=== PATIENT | male | born 1945 | race Caucasian/White ===

== ENCOUNTER 2019-10-18 07:05 | Outpatient (CLI) | payer MEDICARE, SELFPAY ==
[2019-10-18 07:17] LABS: Hematocrit 42.2 % (37.0-46.0); Hemoglobin 14.8 g/dL (12.4-15.3); Mean Corpuscular HGB Conc 35.1 g/dL (32.0-36.0); Mean Corpuscular Hemoglobin 31.5 pg (27.0-31.0); Mean Corpuscular Volume 89.8 fL (78.0-102.0); Mean Platelet Volume 10.3 fl (8.7-11.0); Platelet Count Result 185 K/mm3 (150-420); White Blood Count 7.7 K/mm3 (4.8-10.8)
[2019-10-18 07:20] LABS: Appearance Urine Cloudy (Clear); Bilirubin Urine Negative (Negative); Color Urine Yellow (Yellow); Glucose Urine UA Negative (Negative); Ketones Urine Negative (Negative); Leukocyte Esterase Ur 3+ (Negative); Nitrate Urine Positive (Negative); Protein Urine Negative (Negative); Specific Grav Ur 1.015 (1.010-1.020); Urobilinogen Urine 0.2 mg/dL (0.2-1.0)
[2019-10-18 07:36] LABS: Add Urine Microscopic? YES; Blood Urine Trace-Intact (Negative); Squamous Epithelial Cell Urine None seen /hpf (Few); WBC Urine >75 /hpf (0-3)
[2019-10-18 07:37] LABS: Bacteria Urine 4+ /hpf
[2019-10-18 07:59] LABS: Band Neutrophils Percent 0 % (0-6); Basophils Percent Manual 0 % (0-1); Eosinophils Absolute Manual 0.69 K/mm3 (0.02-0.5); Eosinophils Percent Manual 9 % (1-6); Lymphocytes Absolute Manual 2.15 K/mm3 (1.1-4.5); Lymphocytes Percent Manual 28 % (18-44); Monocytes Absolute Manual 0.46 K/mm3 (0.1-0.90); Monocytes Percent Manual 6 % (3-9); Neutrophils Absolute Manual 4.38 K/mm3 (1.3-6.7); Neutrophils Percent Manual 57 % (46-73); Platelet Estimate Adequate (Adequate); Total Cells Counted 100
[2019-10-18 08:08] LABS: Creatinine Urine 82.88 mg/dL (40-278)
[2019-10-18 08:24] LABS: MALB Creatinine Ratio 53.5 mg/g (0-30); Microalbumin Urine Random 44.4 mg/L
[2019-10-18 08:50] LABS: Alanine Aminotransferase 24 U/L (16-63); Albumin Level 3.5 g/dL (3.4-5.0); Alkaline Phosphatase 107 U/L (46-116); Anion Gap 11.7 mmol/L (7-16); Aspartate Amino Transferase 22 U/L (15-37); Bilirubin,Total 0.9 mg/dL (0.00-1.00); Blood Urea Nitrogen 25 mg/dL (7-18); Calcium 8.6 mg/dL (8.5-10.1); Carbon Dioxide 32 mmol/L (21-32); Chloride 106 mmol/L (98-108); Cholesterol 156 mg/dL (0-200); Creatine Kinase 80 U/L (39-308); Estimated Glomerular Filt Rate 53; Ferritin 33 ng/mL (26-388); Glucose 107 mg/dL (70-99); HDL Direct 48 mg/dL (40-60); Iron 98 ug/dL (65-175); LDL Cholesterol Calculated 81 mg/dL (<130); Osmolality Calculated 306 mOsm/kg (285-295); Percent Iron Saturation 33 % (12-57); Potassium 3.7 mmol/L (3.5-5.1); Prostate Specific Antigen 2.1 ng/mL (< OR = 4.0); Sodium 146 mmol/L (136-145); Total Protein 6.5 g/dL (6.4-8.2); Triglycerides 136 mg/dL (0-150)
== END 2019-10-18 07:06 | disposition home or self-care (01) ==
PROVIDERS: PCP Internal Medicine; Visit Provider Internal Medicine
DX: E78.2 Mixed hyperlipidemia (principal); I10 Essential (primary) hypertension; E83.110 Hereditary hemochromatosis; Z85.46 Personal history of malignant neoplasm of prostate; E11.9 Type 2 diabetes mellitus without complications
CPT/HCPCS: 36415; 80053; 80061; 81001; 82043; 82550; 82728; 83036; 83540; 83550; 84153; 85025

== ENCOUNTER 2020-05-21 07:22 | Outpatient (CLI) | payer MEDICARE, SELFPAY ==
[2020-05-21 07:33] LABS: Add Urine Microscopic? NO; Appearance Urine Clear (Clear); Bilirubin Urine Negative (Negative); Blood Urine Negative (Negative); Color Urine Yellow (Yellow); Glucose Urine UA Negative (Negative); Ketones Urine Negative (Negative); Leukocyte Esterase Ur Negative (Negative); Nitrate Urine Negative (Negative); Protein Urine Negative (Negative); Urobilinogen Urine 0.2 mg/dL (0.2-1.0); pH Urine 7.5 (5.0-8.0)
[2020-05-21 07:46] LABS: Creatinine Urine 50.62 mg/dL (40-278); MALB Creatinine Ratio 44.8 mg/g (0-30); Microalbumin Urine Random 22.7 mg/L
[2020-05-21 07:49] LABS: Hemoglobin A1C 6.5 % (<5.7)
[2020-05-21 08:14] LABS: Alanine Aminotransferase 24 U/L (16-63); Albumin Level 3.8 g/dL (3.4-5.0); Alkaline Phosphatase 108 U/L (46-116); Anion Gap 8 mmol/L (8-16); Aspartate Amino Transferase 19 U/L (15-37); Blood Urea Nitrogen 20 mg/dL (7-18); Calcium 8.8 mg/dL (8.5-10.1); Carbon Dioxide 32 mmol/L (21-32); Chloride 103 mmol/L (98-108); Cholesterol 168 mg/dL (0-200); Creatine Kinase 79 U/L (39-308); Estimated Glomerular Filt Rate 55; Glucose 129 mg/dL (70-99); HDL Direct 52 mg/dL (40-60); LDL Cholesterol Calculated 86 mg/dL (<130); Osmolality Calculated 300 mOsm/kg (285-295); Potassium 3.6 mmol/L (3.5-5.1); Sodium 143 mmol/L (136-145); Total Protein 6.8 g/dL (6.4-8.2); Triglycerides 150 mg/dL (0-150)
== END 2020-05-21 07:23 | disposition home or self-care (01) ==
LOC: CHSLAB 07:23
PROVIDERS: PCP Internal Medicine; Visit Provider Internal Medicine
DX: E11.9 Type 2 diabetes mellitus without complications (principal); I10 Essential (primary) hypertension; E78.2 Mixed hyperlipidemia
CPT/HCPCS: 36415; 80053; 80061; 81003; 82043; 82550; 83036

== ENCOUNTER 2020-06-03 10:38 | Outpatient (CLI) | payer MEDICARE, SELFPAY ==
--- NOTE | ~2020-06-03 | XR_ITS ---
EXAMINATION: XR chest 2V DATE: 06/03/2020 10:56 INDICATION: Asbestos exposure TECHNIQUE: PA and lateral views of the chest are obtained. COMPARISON: 03/27/2016 FINDINGS: The lungs are free of acute opacities. There is no pleural effusion or pneumothorax. The ca rdiomediastinal silhouette is normal. There is moderate thoracic spondylosis. No definite calcified p leural plaques are identified. IMPRESSION: 1. No acute cardiopulmonary abnormality. No definite sequela of asbestos exposure although sensitivit y of radiographs is low. Reviewed, dictated and finalized at location A. TESTER IMPRESSION: 1. No acute cardiopulmonary abnormality. No definite sequela of asbestos exposu re although sensitivity of radiographs is low.
== END 2020-06-03 10:39 | disposition home or self-care (01) ==
LOC: CHSIMG 10:40
PROVIDERS: PCP Internal Medicine; Visit Provider Internal Medicine
DX: Z77.090 Contact with and (suspected) exposure to asbestos (principal)
CPT/HCPCS: 71046

== ENCOUNTER 2020-09-15 14:56 | Outpatient (CLI) | payer MEDICARE, SELFPAY ==
--- NOTE | ~2020-09-15 | US_ITS ---
US scrotum doppler INDICATION: Testicular swelling TECHNIQUE: Testicular sonogram utilizing grayscale and color Doppler FINDINGS: The testes are normal in size and appearance. No focal lesions are seen. The right testes measures 4.2 x 2.3 x 3.2 cm centimeters, and the left testis measures 3.8 x 2.5 x 3.1 cm cm. There is normal vascular flow to both testes. There is a right epididymal cyst. There are bilateral hydroceles, right greater than left. IMPRESSION: 1. Bilateral hydroceles, right greater than left. Reviewed, dictated and finalized at location A.
== END 2020-09-15 14:57 | disposition home or self-care (01) ==
PROVIDERS: PCP Internal Medicine; Visit Provider Urology
DX: N50.89 Other specified disorders of the male genital organs (principal); N43.3 Hydrocele, unspecified
CPT/HCPCS: 76870; 93976

== ENCOUNTER 2020-09-28 07:27 | Outpatient (CLI) | payer MEDICARE, SELFPAY ==
--- NOTE | 2020-09-28 07:30 | ECG_ITS ---
Measurements Intervals [place] Rate: 73 P: 70 TN: 196 QRS: 83 QRSD: 113 T: 47 QT: 391 QTc: 433 Interpretive Statements SINUS RHYTHM INTRAVENTRICULAR CONDUCTION DELAY CANNOT RULE OUT SEPTAL INFARCT, AGE INDETERMINATE BASELINE ARTIFACT- II, III ABNORMAL ECG Electronically Signed On 09-28-2020 12:06:49 CDT by Nelson Mascorro D.O.
[2020-09-28 08:23] LABS: Anion Gap 10 mmol/L (8-16); Blood Urea Nitrogen 28 mg/dL (7-18); Calcium 8.9 mg/dL (8.5-10.1); Carbon Dioxide 31 mmol/L (21-32); Chloride 103 mmol/L (98-108); Estimated Glomerular Filt Rate 51; Glucose 130 mg/dL (70-99); Osmolality Calculated 305 mOsm/kg (285-295); Potassium 3.7 mmol/L (3.5-5.1); Sodium 144 mmol/L (136-145)
== END 2020-09-28 07:28 | disposition home or self-care (01) ==
LOC: CHSLAB 07:30
PROVIDERS: PCP Internal Medicine; Visit Provider Anesthesiology
DX: Z79.899 Other long term (current) drug therapy (principal); I10 Essential (primary) hypertension
CPT/HCPCS: 36415; 80048; 93005

== ENCOUNTER → 2020-10-10 00:14 | Outpatient (CLI) | payer MEDICARE, SELFPAY ==
[2020-10-10 19:27] LABS: SARS-CoV-2 RNA PCR Negative
== END ==
PROVIDERS: PCP Internal Medicine; Visit Provider Urology
DX: Z01.812 Encounter for preprocedural laboratory examination (principal); Z20.822 Contact with and (suspected) exposure to COVID-19
CPT/HCPCS: C9803; U0003; U0005

== ENCOUNTER 2020-10-13 00:13 | Day surgery (SDC) | payer MEDICARE, SELFPAY ==
[2020-09-25 14:51] VITALS: BMI 39.9
[2020-10-13] VITALS (8 sets, daily range): BP systolic 113–154; BP diastolic 58–85; PULSE 64–91; RESP 11–16; TEMP 35.8–36.3; O2SAT 91–99
--- NOTE | 2020-10-13 07:18 | WPDHPUPDATE1 ---
History and Physical Update Update Date/Time: 10/13/20 07:18 History and Physical has been reviewed, including an updated exam of the patient. There are NO changes in the patient's condition. Risks, benefits, and alternatives have been discussed and questions answered. Patient agrees to proceed with procedure. Proceed with right hydrocelectomy
[2020-10-13] MEDS: LACTATED RINGERS 1,000 ML 30 ML IV CONT ×2 (07:32→09:48)
--- NOTE | 2020-10-13 08:04 | WPDANESEPPF ---
Anes - Initial Pre Proc Eval Procedure: Operation Date: 10/13/20 09:00 Proposed Procedures p Right Hydrocelectomy - Joseluis Garay MD Date/Time: 10/13/20 08:04 Surgeon: Joseluis Garay MD Pre Op Diagnosis: right hydrocele Patient Data Age: 75 Gender: M Height: 1.75 m Weight: 122.6 kg Last Vital Signs Temp 96.4 F L 10/13/20 06:59 Pulse 64 10/13/20 06:59 Resp 16 10/13/20 06:59 BP 145/59 H 10/13/20 06:59 Pulse Ox 98 10/13/20 06:59 Allergies Allergy/AdvReac Type Severity Reaction Status Date / Time No Known Allergies Allergy Unverified 10/13/20 07:19 Home Medications Medication Instructions Recorded Confirmed Type amlodipine 10 mg PO QAM 09/25/20 10/13/20 History aspirin [Aspir-81] 81 mg PO DAILY 09/25/20 10/13/20 History cetirizine [Zyrtec] 5 mg PO HS 09/25/20 10/13/20 History clonidine HCl 0.1 mg QAM 09/25/20 10/13/20 History doxazosin 8 mg HS 09/25/20 10/13/20 History hydrochlorothiazide 25 mg QAM 09/25/20 10/13/20 History losartan 100 mg QAM 09/25/20 10/13/20 History pravastatin 10 mg HS 09/25/20 10/13/20 History Patient hx anesthesia problems: none Family hx anesthesia problems: none [facility] Past Medical History Medical History (Updated 10/13/20 @ 08:04 by Oren Hinson MD) Arthritis H/O prostate cancer Hyperlipidemia Hypertension Social History Social History Smoking packs per day: 1 Smoking cigarettes per day: 20.0 Years smoked: 20 Smoking pack-years: 20.00 Smoking status: Former smoker Second hand tobacco smoke exposure: No Additional smoking assessment comments: PT UNABLE TO RECALL WHEN QUITTING Substance use: never Substance use type: does not use Living arrangements: with family Spiritual care concerns: No Anes - Eval Final PreProcedure Day of Procedure 10/13/20 08:04 Patient weight: morbidly obese Heart: regular rate and rhythm Lungs: clear to auscultation Airway: Mallampati scale class III Neurological: alert and oriented Last oral intake: >/= 8 hours ASA classification: IV Emergent: no Anesthetic plan: proceed Anesthesia type and monitoring: general LMA and standard monitoring Informed Consent: The patient's anesthetic plan and its attendant risks and benefits were discussed with the patient/family/POA. Questions were solicited and answers provided to the satisfaction of the patient/family/POA.
[2020-10-13] MEDS: ceFAZolin 3 GM/D5W 100 ML 100 ML IVPB (08:48)
--- NOTE | 2020-10-13 09:37 | P.OP_ITS ---
Procedure Note - Detailed Date of Procedure 10/13/20 Pre-op Diagnosis right hydrocele Post-op Diagnosis same Procedure Performed Right hydrocelectomy and right orchiopexy Surgeon Joseluis Garay MD Anesthesia general Description of Procedure Patient is taken the operative suite and correctly identified. Once anesthesia was obtained he was placed in supine position and prepped and draped usual sterile fashion. Right transverse incision was made in the right hemiscrotum. This carried down to the tunica layers. The hydrocele was then brought out in the operative field. It was incised and drained of 250 cc of straw-colored fluid. We excised the excess tissue. Fulgurated the edges. The appendix testes was also removed. We then did an orchiopexy by stabilizing the testicle in 3 points laterally medially and inferiorly. Three 0 PDS was used. Quarter- inch Anel drain was then placed through a separate stab incision. This secured using a chromic suture. We anesthetize the incision with Marcaine. We closed the tunica using 3 0 chromic in a running fashion. Skin was also closed with running fashion with 3 O chromic. Patient is taken recovery stable condition. He will remove the [place] 2-3 days if minimal drainage. Drains Yes Packing No Pathology yes Complications No immediate complications Condition stable Disposition PACU
== END 2020-10-13 11:37 | disposition home or self-care (01) ==
PROVIDERS: PCP Internal Medicine; Visit Provider Urology
PROC: (CPT 55040; principal; 2020-10-13 09:00)
DX: N43.3 Hydrocele, unspecified (principal); Z79.82 Long term (current) use of aspirin; I10 Essential (primary) hypertension; E78.5 Hyperlipidemia, unspecified; Z85.46 Personal history of malignant neoplasm of prostate; Z87.891 Personal history of nicotine dependence; E66.01 Morbid (severe) obesity due to excess calories; Z68.39 Body mass index [BMI] 39.0-39.9, adult
CPT/HCPCS: 55040; 54640; 88302; A9270; J0131; J0690; J1100; J2405; J2704; J3010; J7120

== ENCOUNTER 2020-11-17 08:05 | Outpatient (CLI) | payer MEDICARE, SELFPAY ==
[2020-11-17 08:20] LABS: Add Urine Microscopic? NO; Appearance Urine Clear (Clear); Bilirubin Urine Negative (Negative); Blood Urine Negative (Negative); Color Urine Light Yellow (Yellow); Glucose Urine UA Negative (Negative); Hematocrit 41.6 % (37.0-46.0); Hemoglobin 14.7 g/dL (12.4-15.3); Ketones Urine Negative (Negative); Leukocyte Esterase Ur Negative (Negative); Mean Corpuscular HGB Conc 35.3 g/dL (32.0-36.0); Mean Corpuscular Hemoglobin 32.1 pg (27.0-31.0); Mean Corpuscular Volume 90.8 fL (78.0-102.0); Mean Platelet Volume 10.3 fl (8.7-11.0); Nitrate Urine Negative (Negative); Platelet Count Result 216 K/mm3 (150-420); Protein Urine Negative (Negative); Red Blood Count 4.58 M/mm3 (4.70-6.10); Red Cell Distribution Width 12.6 % (11.6-14.4); Specific Grav Ur 1.015 (1.010-1.020); Urobilinogen Urine 0.2 mg/dL (0.2-1.0); White Blood Count 7.1 K/mm3 (4.8-10.8); pH Urine 7.5 (5.0-8.0)
[2020-11-17 08:30] LABS: Hemoglobin A1C 7.1 % (<5.7)
[2020-11-17 08:40] LABS: Band Neutrophils Percent 0 % (0-6); Eosinophils Absolute Manual 0.56 K/mm3 (0.02-0.5); Eosinophils Percent Manual 8 % (1-6); Lymphocytes Absolute Manual 1.91 K/mm3 (1.1-4.5); Lymphocytes Percent Manual 27 % (18-44); Monocytes Absolute Manual 0.42 K/mm3 (0.1-0.90); Monocytes Percent Manual 6 % (3-9); Neutrophils Absolute Manual 4.18 K/mm3 (1.3-6.7); Neutrophils Percent Manual 59 % (46-73); Platelet Estimate Adequate (Adequate); Total Cells Counted 100
[2020-11-17 09:55] LABS: Alanine Aminotransferase 27 U/L (16-63); Albumin Level 3.6 g/dL (3.4-5.0); Alkaline Phosphatase 114 U/L (46-116); Anion Gap 13 mmol/L (8-16); Aspartate Amino Transferase 23 U/L (15-37); Blood Urea Nitrogen 23 mg/dL (7-18); Calcium 8.7 mg/dL (8.5-10.1); Carbon Dioxide 28 mmol/L (21-32); Chloride 106 mmol/L (98-108); Cholesterol 163 mg/dL (0-200); Creatine Kinase 108 U/L (39-308); Estimated Glomerular Filt Rate 56; Glucose 119 mg/dL (70-99); HDL Direct 49 mg/dL (40-60); Iron 121 ug/dL (65-175); LDL Cholesterol Calculated 83 mg/dL (<130); Osmolality Calculated 308 mOsm/kg (285-295); Percent Iron Saturation 45 % (12-57); Potassium 3.9 mmol/L (3.5-5.1); Prostate Specific Antigen 1.2 ng/mL (< OR = 4.0); Sodium 147 mmol/L (136-145); Total Protein 6.8 g/dL (6.4-8.2); Triglycerides 153 mg/dL (0-150)
[2020-11-17 11:32] LABS: Ferritin 108 ng/mL (26-388)
== END 2020-11-17 08:06 | disposition home or self-care (01) ==
LOC: CHSLAB 08:07
PROVIDERS: PCP Internal Medicine; Visit Provider Internal Medicine
DX: E11.9 Type 2 diabetes mellitus without complications (principal); I10 Essential (primary) hypertension; E78.2 Mixed hyperlipidemia; K21.9 Gastro-esophageal reflux disease without esophagitis; E83.110 Hereditary hemochromatosis; Z85.46 Personal history of malignant neoplasm of prostate
CPT/HCPCS: 36415; 80053; 80061; 81003; 82550; 82728; 83036; 83540; 83550; 84153; 85025

== ENCOUNTER 2020-12-04 13:10 | Outpatient (CLI) | payer MEDICARE, SELFPAY ==
--- NOTE | ~2020-12-04 | US_ITS ---
EXAMINATION: US carotid duplex BI DATE: 12/04/2020 15:12 INDICATION: Carotid stenosis. TECHNIQUE: Grayscale, color Doppler, and pulsed Doppler images of the cervical carotid arteries were obtained. The degree of vessel stenosis is placed in one of the following categories: normal, <50%, 5 0-69%, >=70% but less than near-occlusion, near-occlusion, or total occlusion. Note that percent sten osis relative to normal distal artery lumen diameter is indirectly measured from velocity measurement s as described by Christophe, et al. Radiology 2003; 229:340-346. COMPARISON: Ultrasound 10/14/2016 FINDINGS: RIGHT: The right common carotid artery (CCA) peak systolic velocity (PSV) is 95 cm/s. The right internal car otid artery (ICA) PSV is 82 cm/s. The right ICA end-diastolic velocity (EDV) is 16 cm/s. The right IC A/CCA PSV ratio is 0.9. Grayscale and color Doppler images yield an estimate of <50% diameter reducti on from plaque in the ICA. There is antegrade flow in the right vertebral artery. LEFT: The left CCA PSV is 88 cm/s. The left ICA PSV is 77 cm/s. The left ICA EDV is 15 cm/s. The left ICA/C CA PSV ratio is 0.9. Grayscale and color Doppler images yield an estimate of <50% diameter reduction from plaque in the ICA. There is antegrade flow in the left vertebral artery. IMPRESSION: 1. <50% stenosis in the right internal carotid artery. 2. <50% stenosis in the left internal carotid artery. Reviewed, dictated and finalized at location A.
[2020-12-04 13:32] LABS: Hematocrit 41.4 % (37.0-46.0); Hemoglobin 14.5 g/dL (12.4-15.3)
--- NOTE | 2020-12-04 14:42 | PC.NURSE ---
Patient here for therapeutic Phlebotomy. Patient has many of these before in the past. Reports veins are getting trickier Unable to find vein to successfully to complete phlebotomy and patient has appointment for ultrasound that can't wait to try again. Patient is understanding and rescheduled for Mon at 1100 a.m.
== END 2020-12-04 13:11 | disposition home or self-care (01) ==
PROVIDERS: PCP Internal Medicine; Visit Provider Internal Medicine
DX: E83.110 Hereditary hemochromatosis (principal); I65.23 Occlusion and stenosis of bilateral carotid arteries
CPT/HCPCS: 36415; 85014; 85018; 93880; 99195

== ENCOUNTER 2021-04-20 09:46 | Outpatient (CLI) | payer MEDICARE, SELFPAY ==
--- NOTE | ~2021-04-20 | XR_ITS ---
EXAMINATION: XR knee LT min 4V DATE: 04/20/2021 10:17 INDICATION: Left knee pain TECHNIQUE: Weight bearing anteroposterior and Clemons, sunrise, and flexed lateral views of the lef t knee were obtained COMPARISON: None. FINDINGS: Alignment is normal. No fracture. Chondrocalcinosis at the lateral compartment of the knee. Moderate to severe joint space narrowing at the medial compartment. Mild joint space narrowing in the patello femoral compartment. Small marginal osteophytes in all 3 compartments. Moderate-sized left knee joint effusion. Moderate-sized enthesophyte at the patellar insertion of the distal quadriceps tendon. Mil d prepatellar soft tissue swelling. Lesser calcific lesions along the distal femoral and popliteal ar teries. IMPRESSION: 1. Chondrocalcinosis and moderate to severe medial compartment predominant tricompartmental osteoarth ritis at the left knee. 2. Moderate-sized left knee joint effusion. Reviewed, dictated and finalized at location A. 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 Chondrocalcinosis and moderate to severe medial compartment predominant tric ompartmental osteoarthritis at the left knee. 2. Moderate-sized left knee joint effusion.
== END 2021-04-20 09:47 | disposition home or self-care (01) ==
LOC: CHSLAB 09:48
PROVIDERS: PCP Internal Medicine; Visit Provider Internal Medicine
DX: M25.562 Pain in left knee (principal)
CPT/HCPCS: 73564

== ENCOUNTER 2021-04-28 12:29 | Outpatient (CLI) | payer MEDICARE, SELFPAY ==
--- NOTE | ~2021-04-28 | XR_ITS ---
XR ankle LT min 3V DATE: 04/28/2021 13:09 INDICATION: Medial left ankle pain TECHNIQUE: 4 views COMPARISON: None FINDINGS: There is prominent tibiotalar osteoarthritis including periarticular spurring. No fracture or dislocation of the ankle or disruption of the ankle mortise. No periosteal reaction or bone destruction. Prominent plantar and mild posterior calcaneal enthesopathy. Anterior and posterior tibial artery calcification. IMPRESSION: 1 tibiotalar osteoarthritis Calcaneal enthesopathy. Reviewed, dictated and finalized at location A. 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
[2021-04-28 13:26] LABS: CRP 1.8 mg/dL (0.0-0.9); Uric Acid 5.3 mg/dL (3.5-7.2)
[2021-04-28 13:57] LABS: Erythrocyte Sedimentation Rate 42 mm/hr (0-20)
== END 2021-04-28 12:30 | disposition home or self-care (01) ==
LOC: CHSLAB 12:38
PROVIDERS: PCP Internal Medicine; Visit Provider Internal Medicine
DX: M25.572 Pain in left ankle and joints of left foot (principal)
CPT/HCPCS: 36415; 73610; 84550; 85652; 86140

== ENCOUNTER 2021-05-01 09:17 | Outpatient (CLI) | payer MEDICARE, SELFPAY ==
--- NOTE | ~2021-05-01 | MR_ITS ---
EXAMINATION: MR knee LT wo con DATE: 05/01/2021 10:05 INDICATION: Left knee pain TECHNIQUE: Magnetic resonance imaging (MRI) of the left knee was performed without intravenous contra st. Sequences included coronal PD-weighted FSE, coronal PD-weighted FS FSE, sagittal T2-weighted FSE , sagittal PD-weighted FS FSE and axial PD weighted fat saturated FSE. COMPARISON: None. FINDINGS: Evaluation mildly limited by small amount of motion blurring on the fat-saturated images. Medial compartment: Linear longitudinal horizontal tear plane extending to the inferior articular surface of the posterio r horn and anterior horn of the medial meniscus. There is medial extrusion of the meniscal body which is diminutive consistent with severe likely secondary meniscal degeneration differential would inclu de changes of prior partial meniscectomy in the appropriate clinical setting. There is extensive full /near full-thickness cartilage loss with underlying cortical irregularity and subarticular edema katharina g the medial half of the anterior to posterior weightbearing medial femoral condyle and along the ant erior half of the medial tibial plateau. Additional subarticular cystic change at the central aspect of the posterior weightbearing medial femoral condyle. Lateral compartment: There is a longitudinal horizontal tear extending to the inferior articular surface along the inner t hird of the posterior horn of the lateral meniscus. Partial-thickness cartilage loss with smooth annette dral surface and without degenerative subchondral changes along the lateral aspect of the central to posterior weightbearing lateral femoral condyle. Patellofemoral compartment: Deep chondral ulceration with underlying increased subarticular marrow signal and cystlike changes at the superolateral aspect of the medial patellar facet. Additional small region of deep chondral ulce ration with mild underlying cortical irregularity along the inferolateral aspect of the medial trochl ea. Ligaments and tendons: Anterior and posterior cruciate ligaments are normal. The medial collateral ligament is normal. There is mild thickening and mild increased signal without significant surrounding edema at the proximal f ibular collateral ligament consistent with mild scarring related to chronic sprain. Mild distal quadr iceps tendinopathy with large enthesophyte at its patellar insertion. Patellar tendon is normal. The visualized medial and lateral hamstring tendons as well as the iliotibial band are normal. Fluid: Moderate-sized left knee joint effusion with mild scattered mild synovitis. A couple loose osteochond ral bodies, the larger measuring 7 mm in the posterior recess along the posterior medial margin of th e distal posterior cruciate ligament. Small Brewer's cyst. Osseous/other: Bone alignment is normal. No fracture or pathologic marrow replacing process. Prominent prepatellar e yadira without discrete bursal fluid collection. IMPRESSION: 1. Medial and lateral meniscal tears, the former more extensive with likely significant degenerative tearing of the medial meniscal body. 2. Tricompartmental osteoarthritis, moderate to severe in the medial compartment, mild with high-grad e chondromalacia in the medial patellofemoral compartment and minimal with small region of moderate g rade chondral malacia in the lateral compartment. 3. Likely reactive moderate sized knee joint effusion and small Brewer's cyst. 4. Chronic distal quadriceps enthesopathy. Reviewed, dictated and finalized at location A. 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 Medial and lateral meniscal tears, the former more extensive with likely sig nificant degenerative tearing of the medial meniscal body. 2. Tricompartmental osteoarthritis, moderate to severe i
== END 2021-05-01 09:18 | disposition home or self-care (01) ==
LOC: CHSIMG 09:20
PROVIDERS: PCP Internal Medicine; Visit Provider Internal Medicine
DX: S83.242A Other tear of medial meniscus, current injury, left knee, initial encounter (principal)
CPT/HCPCS: 73721

== ENCOUNTER 2021-06-03 08:09 | Outpatient (CLI) | payer MEDICARE, SELFPAY ==
[2021-06-03 08:27] LABS: Basophils Absolute Auto 0.03 K/mm3 (0.00-0.10); Basophils Percent Auto 0.5 % (0.0-1.0); Eosinophils Absolute Auto 0.23 K/mm3 (0.02-0.50); Eosinophils Percent Auto 3.5 % (1.0-6.0); Hematocrit 39.9 % (37.0-46.0); Hemoglobin 13.6 g/dL (12.4-15.3); Immature Granulocyte Absolute 0.03 K/mm3 (0.00-0.00); Immature Granulocyte Percent A 0.5 % (0.0-0.0); Lymphocytes Absolute Auto 1.54 K/mm3 (1.10-4.50); Lymphocytes Percent Auto 23.5 % (18.0-42.0); Mean Corpuscular HGB Conc 34.1 g/dL (32.0-36.0); Mean Corpuscular Hemoglobin 30.8 pg (27.0-31.0); Mean Corpuscular Volume 90.5 fL (78.0-102.0); Mean Platelet Volume 9.9 fl (8.7-11.0); Monocytes Absolute Auto 0.47 K/mm3 (0.10-0.90); Monocytes Percent Auto 7.2 % (2.0-11.0); Neutrophils Absolute Auto 4.3 K/mm3 (1.7-7.2); Neutrophils Percent Auto 64.8 % (50.0-70.0); Platelet Count Result 230 K/mm3 (150-420); Red Blood Count 4.41 M/mm3 (4.70-6.10); Red Cell Distribution Width 12.7 % (11.6-14.4); White Blood Count 6.6 K/mm3 (4.8-10.8)
[2021-06-03 08:28] LABS: Add Urine Microscopic? NO; Appearance Urine Clear (Clear); Bilirubin Urine Negative (Negative); Blood Urine Negative (Negative); Color Urine Light Yellow (Yellow); Glucose Urine UA Negative (Negative); Ketones Urine Negative (Negative); Leukocyte Esterase Ur Negative (Negative); Nitrate Urine Negative (Negative); Protein Urine Negative (Negative); Urobilinogen Urine 0.2 mg/dL (0.2-1.0); pH Urine 7.5 (5.0-8.0)
[2021-06-03 08:46] LABS: Hemoglobin A1C 7.9 % (<5.7)
[2021-06-03 09:57] LABS: Alanine Aminotransferase 27 U/L (16-63); Albumin Level 3.5 g/dL (3.4-5.0); Alkaline Phosphatase 114 U/L (46-116); Anion Gap 11 mmol/L (8-16); Aspartate Amino Transferase 14 U/L (15-37); Bilirubin,Total 0.8 mg/dL (0.00-1.00); Blood Urea Nitrogen 18 mg/dL (7-18); Carbon Dioxide 30 mmol/L (21-32); Chloride 103 mmol/L (98-108); Cholesterol 153 mg/dL (0-200); Creatine Kinase 55 U/L (39-308); Estimated Glomerular Filt Rate > 60; Ferritin 31 ng/mL (26-388); Glucose 128 mg/dL (70-99); HDL Direct 54 mg/dL (40-60); Iron 61 ug/dL (65-175); LDL Cholesterol Calculated 73 mg/dL (<130); Osmolality Calculated 301 mOsm/kg (285-295); Potassium 3.6 mmol/L (3.5-5.1); Sodium 144 mmol/L (136-145); Total Protein 6.5 g/dL (6.4-8.2); Triglycerides 130 mg/dL (0-150)
== END 2021-06-03 08:10 | disposition home or self-care (01) ==
LOC: CHSLAB 08:10
PROVIDERS: PCP Internal Medicine; Visit Provider Internal Medicine
DX: E78.2 Mixed hyperlipidemia (principal); I10 Essential (primary) hypertension; E11.40 Type 2 diabetes mellitus with diabetic neuropathy, unspecified; E83.110 Hereditary hemochromatosis
CPT/HCPCS: 36415; 80053; 80061; 81003; 82550; 82728; 83036; 83540; 85025

== ENCOUNTER 2021-06-21 12:46 | Outpatient (RCR) | payer MEDICARE, SELFPAY ==
--- NOTE | 2021-06-21 13:43 | PTOPEVAL ---
Thank you for referring Seun Burgess to [facility].? The patient is scheduled to be seen for therapy? __3__x/week for 12 visits. Please review, sign, date and return this plan of care ALEXIS. I agree with and certify that the following plan of care is medically necessary. 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 Respiratory History Hx Respiratory Disorders No Significant History Gastrointestinal History Hx Cholecystectomy Yes Hx Hernia Yes: UMBILICAL HERNIA REPAIR Hx Polyps Yes: POLYPECTOMY VIA COLONOSCOPY Genitourinary History Hx Other Genitourinary Disorders Yes: RT HYDROCELE, HX PROSTATE CA -TX WITH RADATION Musculoskeletal History Hx Arthritis Yes Hx Joint Replacement Yes: RT KNEE Hematological History Hx Hematological Disorders No Significant History Endocrine History Hx Endocrine Disorders No Significant History HEENT History Hx Cataracts Yes: BILATERALLY REMOVED Hx Sinus Problems Yes: SEASONAL ALLERGIES Hx Other HEENT Disorders Yes: 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 reports that he underwent Query Text:As Reported By Patient/ left knee replacement 1 week Family ago. He states that he was in the hospital for 1 day after jaimes
--- NOTE | 2021-07-07 10:08 | PTOPEVAL ---
Thank you for referring Seun Bugress JrClaudia to [facility] [place].? The patient is scheduled to be seen for therapy? __3__x/week for 5 visits. Please review, sign, date and return this plan of care ALEXIS. I agree with and certify that the following plan of care is medically necessary. 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 Respiratory History Hx Respiratory Disorders No Significant History Gastrointestinal History Hx Cholecystectomy Yes Hx Hernia Yes: UMBILICAL HERNIA REPAIR Hx Polyps Yes: POLYPECTOMY VIA COLONOSCOPY Genitourinary History Hx Other Genitourinary Disorders Yes: RT HYDROCELE, HX PROSTATE CA -TX WITH RADATION Musculoskeletal History Hx Arthritis Yes Hx Joint Replacement Yes: RT KNEE Hematological History Hx Hematological Disorders No Significant History Endocrine History Hx Endocrine Disorders No Significant History HEENT History Hx Cataracts Yes: BILATERALLY REMOVED Hx Sinus Problems Yes: SEASONAL ALLERGIES Hx Other HEENT Disorders Yes: [place]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 reports that he has been Query Text:As Reported By Patient/ walking short distances Family without the cane. He still describes stiffness and swelling limiting k
--- NOTE | 2021-07-19 10:10 | PTOPEVAL ---
Thank you for referring Seun Burgess to [facility].? The patient is scheduled to be seen for therapy? ____x/week for ___ weeks. Please review, sign, date and return this plan of care ALEXIS. I agree with and certify that the following plan of care is medically necessary. 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 Respiratory History Hx Respiratory Disorders No Significant History Gastrointestinal History Hx Cholecystectomy Yes Hx Hernia Yes: UMBILICAL HERNIA REPAIR Hx Polyps Yes: POLYPECTOMY VIA COLONOSCOPY Genitourinary History Hx Other Genitourinary Disorders Yes: RT HYDROCELE, HX PROSTATE CA -TX WITH RADATION Musculoskeletal History Hx Arthritis Yes Hx Joint Replacement Yes: RT KNEE Hematological History Hx Hematological Disorders No Significant History Endocrine History Hx Endocrine Disorders No Significant History HEENT History Hx Cataracts Yes: BILATERALLY REMOVED Hx Sinus Problems Yes: SEASONAL ALLERGIES Hx Other HEENT Disorders Yes: [place]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 Integumentary History Hx Skin Disorders No Significant History Reproductive History Hx Reproductive Disorders No Significant History Psychosocial History Hx Psychiatric Disorders No Significant History Pain History History of Any Previous or Ongoing No Significant History Instance of Pain Anesthesia History Hx Anesthesia Reactions No Significant History Other History Hx Cancer Yes: PROSTATE Hx Implanted Device Yes: RT KNEE Hx Radiation Therapy Yes: COMPLETED Pain Assessment Timing of Pain Assessment Timing of Pain Assessment Assessment Pain Scale Pain Scale Used Numeric (1 - 10) Self Report Pain Assessment Left Knee(s) Reported Pain Level 3 Greatest Pain Intensity 7 Pain Score Pain Score 3: Self Report Interventions Used Interventions Used By Clinicians Activity or ADL's,Compression Pump,Education,Exercise,
--- NOTE | 2021-08-03 10:05 | PTOPEVAL ---
Thank you for referring Seun Burgess to [facility].? The patient is scheduled to be seen for therapy? ____x/week for ___ weeks. Please review, sign, date and return this plan of care ALEXIS. I agree with and certify that the following plan of care is medically necessary. 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 Respiratory History Hx Respiratory Disorders No Significant History Gastrointestinal History Hx Cholecystectomy Yes Hx Hernia Yes: UMBILICAL HERNIA REPAIR Hx Polyps Yes: POLYPECTOMY VIA COLONOSCOPY Genitourinary History Hx Other Genitourinary Disorders Yes: RT HYDROCELE, HX PROSTATE CA -TX WITH RADATION Musculoskeletal History Hx Arthritis Yes Hx Joint Replacement Yes: RT KNEE Hematological History Hx Hematological Disorders No Significant History Endocrine History Hx Endocrine Disorders No Significant History HEENT History Hx Cataracts Yes: BILATERALLY REMOVED Hx Sinus Problems Yes: SEASONAL ALLERGIES Hx Other HEENT Disorders Yes: [place]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 Integumentary History Hx Skin Disorders No Significant History Reproductive History Hx Reproductive Disorders No Significant History Psychosocial History Hx Psychiatric Disorders No Significant History Pain History History of Any Previous or Ongoing No Significant History Instance of Pain Anesthesia History Hx Anesthesia Reactions No Significant History Other History Hx Cancer Yes: PROSTATE Hx Implanted Device Yes: RT KNEE Hx Radiation Therapy Yes: COMPLETED Evaluation Information Problem Diagnosis s/p left TKA Onset 06/14/21 Additional Evaluation Detail LEFS = 31% functionally declined Subjective Information patient reports he feels Query Text:As Reported By Patient/ alright this date. he reports Family some pain still ocassionally in the L knee. he reports he is flared up with increased
== END 2021-08-03 17:00 | disposition home or self-care (01) ==
LOC: CHSPT 12:46
PROVIDERS: Visit Provider Orthopaedic Surgery
DX: Z96.652 Presence of left artificial knee joint (principal); M17.12 Unilateral primary osteoarthritis, left knee
CPT/HCPCS: 97016; 97110; 97161; 97530

== ENCOUNTER 2021-09-06 07:05 | Outpatient (CLI) | payer MEDICARE, SELFPAY ==
[2021-09-06 07:28] LABS: Hemoglobin A1C 6.4 % (<5.7)
[2021-09-06 07:30] LABS: Anion Gap 8 mmol/L (8-16); Blood Urea Nitrogen 25 mg/dL (7-18); Calcium 8.8 mg/dL (8.5-10.1); Carbon Dioxide 31 mmol/L (21-32); Chloride 104 mmol/L (98-108); Estimated Glomerular Filt Rate 58; Glucose 127 mg/dL (70-99); Osmolality Calculated 302 mOsm/kg (285-295); Potassium 3.4 mmol/L (3.5-5.1); Sodium 143 mmol/L (136-145)
== END 2021-09-06 07:06 | disposition home or self-care (01) ==
LOC: CHSLAB 07:07
PROVIDERS: PCP Internal Medicine; Visit Provider Internal Medicine
DX: E11.65 Type 2 diabetes mellitus with hyperglycemia (principal)
CPT/HCPCS: 36415; 80048; 83036

== ENCOUNTER 2021-09-27 12:13 | Outpatient (CLI) | payer MEDICARE, SELFPAY | END 2021-09-27 12:14 | disposition home or self-care (01) | LOC: CHSIMG 12:16 | PROVIDERS: PCP Internal Medicine; Visit Provider Internal Medicine | DX: R06.00 Dyspnea, unspecified (principal) | CPT/HCPCS: 93306 ==

== ENCOUNTER 2021-10-13 07:09 | Outpatient (CLI) | payer MEDICARE, SELFPAY ==
[2021-10-13 07:48] LABS: Anion Gap 5 mmol/L (8-16); Blood Urea Nitrogen 18 mg/dL (7-18); Calcium 8.8 mg/dL (8.5-10.1); Carbon Dioxide 32 mmol/L (21-32); Chloride 105 mmol/L (98-108); Estimated Glomerular Filt Rate 56; Glucose 128 mg/dL (70-99); Magnesium 2.1 mg/dL (1.8-2.4); Osmolality Calculated 297 mOsm/kg (285-295); Potassium 3.3 mmol/L (3.5-5.1); Sodium 142 mmol/L (136-145)
== END 2021-10-13 07:10 | disposition home or self-care (01) ==
LOC: CHSLAB 07:12
PROVIDERS: PCP Internal Medicine; Visit Provider Internal Medicine
DX: E87.6 Hypokalemia (principal)
CPT/HCPCS: 36415; 80048; 83735

== ENCOUNTER 2021-11-12 07:24 | Outpatient (CLI) | payer MEDICARE, SELFPAY ==
[2021-11-12 08:23] LABS: Anion Gap 6 mmol/L (8-16); Blood Urea Nitrogen 24 mg/dL (7-18); Calcium 9.3 mg/dL (8.5-10.1); Carbon Dioxide 31 mmol/L (21-32); Chloride 107 mmol/L (98-108); Estimated Glomerular Filt Rate 52; Glucose 133 mg/dL (70-99); Osmolality Calculated 304 mOsm/kg (285-295); Sodium 144 mmol/L (136-145)
== END 2021-11-12 07:25 | disposition home or self-care (01) ==
LOC: CHSLAB 07:25
PROVIDERS: PCP Internal Medicine; Visit Provider Internal Medicine
DX: E87.6 Hypokalemia (principal)
CPT/HCPCS: 36415; 80048

== ENCOUNTER 2021-12-11 08:02 | Outpatient (CLI) | payer MEDICARE, SELFPAY ==
[2021-12-11 08:19] LABS: Basophils Absolute Auto 0.03 K/mm3 (0.00-0.10); Basophils Percent Auto 0.7 % (0.0-1.0); Eosinophils Absolute Auto 0.28 K/mm3 (0.02-0.50); Eosinophils Percent Auto 6.4 % (1.0-6.0); Hemoglobin 11.9 g/dL (12.4-15.3); Immature Granulocyte Absolute 0.01 K/mm3 (0.00-0.00); Immature Granulocyte Percent A 0.2 % (0.0-0.0); Lymphocytes Absolute Auto 1.39 K/mm3 (1.10-4.50); Lymphocytes Percent Auto 31.9 % (18.0-42.0); Mean Corpuscular HGB Conc 33.1 g/dL (32.0-36.0); Mean Corpuscular Hemoglobin 29.8 pg (27.0-31.0); Mean Corpuscular Volume 90.2 fL (78.0-102.0); Mean Platelet Volume 9.4 fl (8.7-11.0); Monocytes Absolute Auto 0.43 K/mm3 (0.10-0.90); Monocytes Percent Auto 9.9 % (2.0-11.0); Neutrophils Absolute Auto 2.2 K/mm3 (1.7-7.2); Neutrophils Percent Auto 50.9 % (50.0-70.0); Platelet Count Result 264 K/mm3 (150-420); Red Blood Count 3.99 M/mm3 (4.70-6.10); Red Cell Distribution Width 12.7 % (11.6-14.4); White Blood Count 4.4 K/mm3 (4.8-10.8)
[2021-12-11 08:22] LABS: Add Urine Microscopic? NO; Appearance Urine Clear (Clear); Bilirubin Urine Negative (Negative); Blood Urine Negative (Negative); Color Urine Light Yellow (Yellow); Glucose Urine UA Negative (Negative); Ketones Urine Negative (Negative); Leukocyte Esterase Ur Negative (Negative); Nitrate Urine Negative (Negative); Protein Urine Negative (Negative)
[2021-12-11 08:30] LABS: Creatinine Urine 151.49 mg/dL (40-278); MALB Creatinine Ratio 8.5 mg/g (0-30); Microalbumin Urine Random < 13.0 mg/L
[2021-12-11 08:52] LABS: Albumin Level 3.1 g/dL (3.4-5.0); Alkaline Phosphatase 117 U/L (46-116); Anion Gap 8 mmol/L (8-16); Aspartate Amino Transferase 22 U/L (15-37); Bilirubin,Total 0.4 mg/dL (0.00-1.00); Blood Urea Nitrogen 25 mg/dL (7-18); Calcium 8.5 mg/dL (8.5-10.1); Carbon Dioxide 30 mmol/L (21-32); Chloride 102 mmol/L (98-108); Cholesterol 120 mg/dL (0-200); Creatine Kinase 88 U/L (39-308); Estimated Glomerular Filt Rate 45; Ferritin 95 ng/mL (26-388); Free T3 2.42 pg/mL (2.18-3.98); Free T4 Free Thyroxine 1.24 ng/dL (0.76-1.46); Glucose 139 mg/dL (70-99); HDL Direct 40 mg/dL (40-60); Iron 33 ug/dL (65-175); LDL Cholesterol Calculated 53 mg/dL (<130); Osmolality Calculated 296 mOsm/kg (285-295); Potassium 3.5 mmol/L (3.5-5.1); Sodium 140 mmol/L (136-145); Thyroid Stimulating Hormone 1.89 uIU/mL (0.36-3.74); Total Protein 6.5 g/dL (6.4-8.2); Triglycerides 133 mg/dL (0-150)
[2021-12-11 08:58] LABS: Hemoglobin A1C 7.2 % (<5.7)
[2021-12-11 09:00] LABS: Alanine Aminotransferase 15 U/L (16-63)
== END 2021-12-11 08:03 | disposition home or self-care (01) ==
LOC: CHSLAB 08:06
PROVIDERS: PCP Internal Medicine; Visit Provider Internal Medicine
DX: E78.2 Mixed hyperlipidemia (principal); I10 Essential (primary) hypertension; E11.65 Type 2 diabetes mellitus with hyperglycemia; R53.82 Chronic fatigue, unspecified; E83.110 Hereditary hemochromatosis
CPT/HCPCS: 36415; 80053; 80061; 81003; 82043; 82550; 82728; 83036; 83540; 84439; 84443; 84481; 85025

== ENCOUNTER 2021-12-24 15:35 | Outpatient (CLI) | payer MEDICARE, SELFPAY ==
--- NOTE | ~2021-12-24 | XR_ITS ---
XR lumbar spine 2-3V DATE: 12/24/2021 15:58 INDICATION: Chronic mid line low back pain TECHNIQUE: AP, lateral, coned lateral lumbosacral views COMPARISON: None FINDINGS: There is osteopenia. Mild levoscoliosis of the lumbar spine. Moderate degenerative disc disease at L1 to, with particularly prominent bridging osteophyte on the l eft. Mild degenerative disc disease at L2-3. Moderate to moderately severe degenerative disc disease at L3-4 and L4-5. There is associated minimal retrolisthesis at L3-4. Moderately severe degenerative disc disease at L5-S1. There is grade 1 anterolisthesis at L4-5 due to degenerative change at the apophyseal joints. The lumbar pedicles are intact. No fracture or bone destruction is noted. Normal alignment at the sacroiliac joints. IMPRESSION: Osteopenia Mild levoscoliosis Multilevel degenerative disc disease, most severe at L5-S1 Grade 1 anterolisthesis at L4-5 due to degenerative change at the apophyseal joints Reviewed, dictated and finalized at location B. IMPRESSION: Osteopenia Mild levoscoliosis Multilevel degenerative disc disease, most severe at L5-S1 Grade 1 anterolisthesis at L4-5 due to degenerative change at the apophyseal haim ints
== END 2021-12-24 15:36 | disposition home or self-care (01) ==
LOC: CHSIMG 15:38
PROVIDERS: PCP Internal Medicine; Visit Provider Internal Medicine
DX: M54.50 Low back pain, unspecified (principal)
CPT/HCPCS: 72100

== ENCOUNTER 2022-01-05 09:43 | Outpatient (RCR) | payer MEDICARE, SELFPAY ==
--- NOTE | 2022-01-05 10:54 | PTOPEVAL1 ---
Assessment and note entered by Zay Brewster Evaluation Information Assessment Status Evaluation Diagnosis low back pain Onset 07/23/21 Subjective Information Pt. reports that he developed low back pain around July. He describes pain across the lower back and pain in to both thighs. He reports that pain increases with standing and he cannot stand for long periods. He reports that he can stand for about 5 minutes before having to sit due to pain. He enjoys working in his garden, but now has to have a chair with him so he can sit down frequently. He has had xray which revealed DDD. He reports that he does walk on the treadmill for about 10-15 minutes but has to lean on the handrails. He reports that his goal for therapy is to decrease his pain and be able to stand for longer periods of time. Reported Pain Level Pain Score 5: Self Report Assessment PT Clinical Summary Pt. is a 76 year old male who enters the clinic with low back pain secondary to degenrative changes. He presents with impaired gait, impaired trunk mobility, impaired l.e. strength, impaired postural awareness and pain. Continued treatment is indicated in order to improve these areas to allow the pt. to be able to complete all IADL's with improved comfort and efficiency. Plan of Care Interventions Electrical Stimulation,Hot Pack/Cold Pack,Manual Therapy,Therapeutic Activities,Therapeutic Exercise PT Services Indicated Yes Treatment Frequency and 3x/week x 12 visits Duration These treatments will address the objective and functional deficits as defined above. The patient will be advanced safely and appropriately in order for the patient to progress towards his/her prior level of function. Additional exercises will be introduced and as well as a comprehensive home exercise program upon discharge, if needed, ?to ensure carryover of functional gains achieved in the clinic. This treatment plan has been reviewed and agreement upon by the patient.
--- NOTE | 2022-01-21 11:43 | PTOPPROGNS ---
Assessment and note entered by JT File, PT Evaluation Information Assessment Status Progress Diagnosis low back pain Onset 07/23/21 Subjective Information patient reports he feels About the same this date. he reports he has increased pain with standing and walking, but decreased pain with sitting. he reports he uses a chair to sit down and work on things in his garage. Assessment PT Clinical Summary mr. king presents to skilled PT services for his 8th skilled PT visit this date. he presents with having met goals for sensation and hep performance . he is has also made progress towards all other goals for skilled PT. he continues to display deficits in strength of the LE's, core strength, and endurance for standing and functional activities. he would do well to continue skilled PT with slight change in weekly frequency, but still focus on increasing his endurance, core strength, and LE strength to achieve his goals set out by PT at initial evaluation. Plan of Care Interventions Electrical Stimulation,Gait Training,Hot Pack/Cold Pack,Neuro Re-education,Patient/Caregiver Educati ,Therapeutic Activities,Therapeutic Exercise Treatment Frequency and continue therapy 2x weekly for 4 remaining visits Duration on initial POC These treatments will address the objective and functional deficits as defined above. The patient will be advanced safely and appropriately in order for the patient to progress towards his/her prior level of function. Additional exercises will be introduced and as well as a comprehensive home exercise program upon discharge, if needed, ?to ensure carryover of functional gains achieved in the clinic. This treatment plan has been reviewed and agreement upon by the patient.
--- NOTE | 2022-02-02 10:06 | PTOPDC ---
Assessment and note entered by JT File, PT Evaluation Information Assessment Status Discharge Diagnosis low back pain Onset 07/23/21 Subjective Information patient reports he feels better overall, but still has trouble with prolonged standing activities and walking. he reports the most difficult thing for him is to go out and work in the garden. Reported Pain Level Pain Score 3: Self Report Assessment PT Clinical Summary mr. king presents to skilled PT services for his 12th skilled PT visit. he presents with decreased pain at rest, and improved tolerance for exercises/activities in standing. however, he continues to be limited in standing and activities due to pain. he has met over 50% of goals for therapy. mr. king will DC skilled PT this date, and continue to progress endurance and activity tolerance with HEP at home independently. Plan of Care Treatment Frequency and DC to independent HEP Duration
== END 2022-04-05 23:59 | disposition home or self-care (01) ==
LOC: CHSPT 09:43
DX: M54.50 Low back pain, unspecified (principal)
CPT/HCPCS: 97014; 97110; 97161; 97530; G0283

== ENCOUNTER 2022-01-13 15:14 | Outpatient (CLI) | payer MEDICARE, SELFPAY ==
[2022-01-13 15:50] LABS: Anion Gap 8 mmol/L (8-16); Blood Urea Nitrogen 19 mg/dL (7-18); Calcium 9.1 mg/dL (8.5-10.1); Carbon Dioxide 32 mmol/L (21-32); Chloride 102 mmol/L (98-108); Estimated Glomerular Filt Rate 57; Glucose 185 mg/dL (70-99); Osmolality Calculated 301 mOsm/kg (285-295); Potassium 3.8 mmol/L (3.5-5.1); Sodium 142 mmol/L (136-145)
== END 2022-01-13 15:15 | disposition home or self-care (01) ==
LOC: CHSLAB 15:16
PROVIDERS: PCP Internal Medicine; Visit Provider Internal Medicine
DX: I12.9 Hypertensive chronic kidney disease with stage 1 through stage 4 chronic kidney disease, or unspecified chronic kidney disease (principal); N18.30 Chronic kidney disease, stage 3 unspecified
CPT/HCPCS: 36415; 80048

== ENCOUNTER 2022-02-02 07:24 | Outpatient (CLI) | payer MEDICARE, SELFPAY ==
[2022-02-02 08:00] LABS: Anion Gap 7 mmol/L (8-16); Blood Urea Nitrogen 20 mg/dL (7-18); Calcium 8.6 mg/dL (8.5-10.1); Carbon Dioxide 31 mmol/L (21-32); Chloride 107 mmol/L (98-108); Estimated Glomerular Filt Rate > 60; Glucose 124 mg/dL (70-99); Osmolality Calculated 303 mOsm/kg (285-295); Potassium 3.8 mmol/L (3.5-5.1); Sodium 145 mmol/L (136-145)
== END 2022-02-02 07:25 | disposition home or self-care (01) ==
LOC: CHSLAB 07:27
PROVIDERS: PCP Internal Medicine
DX: M54.50 Low back pain, unspecified (principal)
CPT/HCPCS: 36415; 80048

== ENCOUNTER 2022-04-05 01:10 | Inpatient (IN) | payer MEDICARE, SELFPAY ==
[2022-04-05] VITALS (57 sets, daily range): BP systolic 99–150; BP diastolic 42–88; PULSE 78–106; RESP 16–20; TEMP 36.6–38.4; O2SAT 79–98; BMI 38.6
--- NOTE | ~2022-04-05 | XR_ITS ---
EXAMINATION: XR chest 1V portable DATE: 04/05/2022 02:19 INDICATION: Fever. Shortness of breath. TECHNIQUE: A single frontal view of the chest was obtained. COMPARISON: Chest 2 views 06/03/2020, CT abdomen and pelvis 11/27/2008 FINDINGS: There are airspace opacities at left lung base. No pleural effusion or pneumothorax. The he art size is normal. There is a prominent left paracardial fat pad. IMPRESSION: 1. Airspace opacities at left lung base, consistent with atelectasis versus pneumonia. Reviewed, dictated and finalized at location A. KET WASHER IMPRESSION: 1. Airspace opacities at left lung base, consistent with atelectasis versus pne umonia.
--- NOTE | 2022-04-05 01:32 | ED.GENADULT ---
HPI - General Adult General Chief complaint: Fall <Mina Alfonso MD - Last Filed: 04/09/22 21:42> Stated complaint: fall <Mina Alfonso MD - Last Filed: 04/09/22 21:42> Time Seen by Provider: 04/05/22 01:14 <Mina Alfonso MD - Last Filed: 04/09/22 21:42> Source: patient <Mina Alfonso MD - Last Filed: 04/09/22 21:42> Mode of arrival: ambulatory <Mina Alfonso MD - Last Filed: 04/09/22 21:42> History of Present Illness HPI narrative: 77-year-old male with a history of hypertension, LVH/ diastolic dysfunction, adenocarcinoma the prostate, BPH had back surgery two weeks ago at [facility]. he presents to the ER with -- nausea with multiple episodes of vomiting which started 3 days ago. -- Ongoing postoperative back pain. He has watery discharge from the operative site. -- generalized weakness. He went to take a shower and felt his legs give out. No falls or fall injury noted. -- Generalized rash which is non itchy and started this morning. -- fever with a T-max of 101.2 He has had bilateral total knee replacements along with repair of a testicular hydrocele. He has had history of Vicodin use in the past. No new medications except for antibiotics during during the perioperative period and Vicodin <Mina Alfonso MD - Last Filed: 04/09/22 21:42> Onset (ago): day(s) ( Started 3 days ago.) <Mina Alfonso MD - Last Filed: 04/09/22 21:42> Location: back <Mina Alfonso MD - Last Filed: 04/09/22 21:42> Radiation: non-radiation <Mina Alfonso MD - Last Filed: 04/09/22 21:42> Pain Consistency: constant <Mina Alfonso MD - Last Filed: 04/09/22 21:42> Relieving factors: none <Mina Alfonso MD - Last Filed: 04/09/22 21:42> Exacerbating factors: none <Mina Alfonso MD - Last Filed: 04/09/22 21:42> Associated symptoms: nausea/vomiting and rash <Mina Alfonso MD - Last Filed: 04/09/22 21:42> Treatments prior to arrival: none <Mina Alfonso MD - Last Filed: 04/09/22 21:42> Related Data Home medications: Home Medications Medication Instructions Recorded Confirmed amlodipine 10 mg tablet 5 mg PO QAM 09/25/20 04/05/22 aspirin 81 mg tablet,delayed 81 mg PO DAILY 09/25/20 04/05/22 release cetirizine 5 mg tablet 5 mg PO HS 09/25/20 04/05/22 clonidine HCl 0.1 mg tablet 0.1 mg QA 09/25/20 04/05/22 doxazosin 8 mg tablet 16 mg PO HS 09/25/20 04/05/22 hydrochlorothiazide 25 mg tablet 25 mg PO QAM 09/25/20 04/05/22 losartan 100 mg tablet 100 mg PO QA 09/25/20 04/05/22 pravastatin 10 mg tablet 10 mg PO HS 09/25/20 04/05/22 cholecalciferol (vitamin D3) 25 25 mcg PO DAILY 04/05/22 04/05/22 mcg (1,000 unit) tablet (Vitamin D3) hydrocodone 10 mg-acetaminophen 1 tablet PO PRN PRN Breakthrough 04/05/22 04/05/22 325 mg tablet Pain lorazepam 1 mg tablet 1 mg PO PRN PRN Anxiety 04/05/22 04/05/22 metformin 500 mg tablet,extended 1,000 mg PO HS 04/05/22 04/05/22 release 24 hr potassium chloride 10 mEq 10 meq PO DAILY 04/05/22 04/05/22 tablet,extended release(part/cryst) <Mina Alfonso MD - Last Filed: 04/09/22 21:42> Allergies/adverse reactions: Allergies Allergy/AdvReac Type Severity Reaction Status Date / Time No Known Allergies Allergy Unverified 10/13/20 07:19 <Mina Alfonso MD - Last Filed: 04/09/22 21:42> Review of Systems Review of Systems: All systems reviewed & are unremarkable except as noted in HPI and below <Mina Alfonso MD - Last Filed: 04/09/22 21:42> Constitutional: Constitutional: Reports as per HPI and Reports no additional constitutional complaints <Mina Alfonso MD - Last Filed: 04/09/22 21:42> Eyes: Eyes: Reports as per HPI and Reports no additional eye complaints <Mina Alfonso MD - Last Filed: 04/09/22 21:42> ENT: Reports system reviewed and no additional complaints, except as documented and
[2022-04-05 02:16] LABS: Basophils Absolute Auto 0.01 K/mm3 (0.00-0.10); Basophils Percent Auto 0.1 % (0.0-1.0); Hematocrit 33.5 % (37.0-46.0); Hemoglobin 11.3 g/dL (12.4-15.3); Immature Granulocyte Absolute 0.07 K/mm3 (0.00-0.00); Immature Granulocyte Percent A 0.6 % (0.0-0.0); Lymphocytes Absolute Auto 0.28 K/mm3 (1.10-4.50); Lymphocytes Percent Auto 2.2 % (18.0-42.0); Mean Corpuscular HGB Conc 33.7 g/dL (32.0-36.0); Mean Corpuscular Hemoglobin 29.7 pg (27.0-31.0); Mean Corpuscular Volume 88.2 fL (78.0-102.0); Monocytes Absolute Auto 0.53 K/mm3 (0.10-0.90); Monocytes Percent Auto 4.2 % (2.0-11.0); Neutrophils Absolute Auto 11.6 K/mm3 (1.7-7.2); Neutrophils Percent Auto 92.9 % (50.0-70.0); Platelet Count Result 243 K/mm3 (150-420); Red Cell Distribution Width 13.8 % (11.6-14.4); White Blood Count 12.5 K/mm3 (4.8-10.8)
--- NOTE | 2022-04-05 02:34 | PC.NURSE ---
Pt assisted to side lying on his Rt side, dressing inplace to lower back noted saturated c serosanguous drainage and wound area cleansed c surclenz, wound noted well approx. rash noted around site and spreading to his entire abd. and back, dressing replaced c dry abd. dressing and taped c medipore cling tape.
[2022-04-05 02:35] LABS: INR 1.3; Partial Thromboplastin Time 32.7 SEC (23.90-30.70); Prothrombin Time 14.1 Seconds (9.50-12.10)
[2022-04-05 02:38] LABS: Alanine Aminotransferase 14 U/L (16-63); Albumin Level 2.5 g/dL (3.4-5.0); Alkaline Phosphatase 88 U/L (46-116); Anion Gap 11 mmol/L (8-16); Aspartate Amino Transferase 18 U/L (15-37); Blood Urea Nitrogen 26 mg/dL (7-18); Calcium 7.9 mg/dL (8.5-10.1); Carbon Dioxide 28 mmol/L (21-32); Chloride 95 mmol/L (98-108); Estimated CRCL calculation 37 ml/min; Estimated Glomerular Filt Rate 34; Glucose 230 mg/dL (70-99); Lipase 11 U/L (73-393); Osmolality Calculated 289 mOsm/kg (285-295); Potassium 3.6 mmol/L (3.5-5.1); Sodium 134 mmol/L (136-145); Total Protein 5.9 g/dL (6.4-8.2); Troponin I 14.8 ng/L (0.00-60.4)
[2022-04-05 02:41] LABS: Lactic Acid Reflex 5.1 mmol/L (0.4-2.0)
[2022-04-05] MEDS: LACTATED RINGERS 1,000 ML 999 ML IV CONT (02:54)
--- NOTE | 2022-04-05 03:50 | PC.NURSE ---
Multiple facilities contacted for pt transfer, unsuccessful, see provider communication for calls made and waitlists. Pt assisted to stand to urinate, pt unable to urinate, order obtained for catheter.
[2022-04-05] MEDS: SODIUM CHLORIDE 0.9% IV 1,000 ML 999 ML IV CONT (04:05)
[2022-04-05 04:10] LABS: SARS-CoV-2 RNA PCR Negative (Negative)
--- NOTE | 2022-04-05 04:17 | PC.NURSE ---
Pt positioned for comfort in bed, VSS at this time, watching TV, call bauer at side, IVF infusing per order and alex draining to gravity. No c/o, will continue to monitor and await callbacks for transfer.
[2022-04-05 04:32] LABS: Add Urine Microscopic? YES; Appearance Urine Clear (Clear); Bilirubin Urine Negative (Negative); Blood Urine 1+ (Negative); Color Urine Yellow (Yellow); Glucose Urine UA Negative (Negative); Ketones Urine Trace (Negative); Leukocyte Esterase Ur Negative LEU/UL (Negative); Nitrate Urine Negative (Negative); Protein Urine 1+ (Negative); Urobilinogen Urine 0.2 mg/dL (0.2-1.0)
[2022-04-05 04:39] LABS: Bacteria Urine 1+ /hpf; Mucus Urine Few /lpf; Squamous Epithelial Cell Urine Rare /hpf (Few)
--- NOTE | 2022-04-05 05:52 | PC.NURSE ---
Pt assisted to Rt side lying position, alex output emptied for total of 450ml. VSS at this time, call bauer in reach, Continuing to monitor.
--- NOTE | 2022-04-05 07:13 | PC.NURSE ---
Pt resting in side lying position, Report given to Ellis Rico, call bauer at pt side.
[2022-04-05 07:32] LABS: Lactic Acid 2.2 mmol/L (0.4-2.0)
--- NOTE | 2022-04-05 08:04 | PC.NURSE ---
0720 pt is requesting to sit up, recliner was provided. pt dressing is saturated with serosanguineous fluid, thick areas noted, foul odor present. surgical site cleaned and new dressing applied. pt is assisted to recliner. alex catheter is draining without difficulty. ice chips provided, wound culture is collected and sent to lab. pt temp noted to be 100.4f, erp is aware and medications to be given as ordered. pt denies any other needs or complaints at this time. will continue to monitor.
[2022-04-05] MEDS: IBUPROFEN 600 MG TABLET PO (08:21)
--- NOTE | 2022-04-05 09:11 | PC.NURSE ---
PT IS RESTING IN RECLINER AT THIS TIME. BREAKFAST TRAY WAS ORDERED. PT DENIES ANY NEEDS OR COMPLAINTS. WILL CONTINUE TO MONITOR.
--- NOTE | 2022-04-05 09:33 | PC.NURSE ---
BREAKFAST TRAY PROVIDED AT THIS TIME. WILL CONTINUE TO MONITOR.
--- NOTE | 2022-04-05 10:06 | PC.NURSE ---
SPOKE WITH [facility] WHO REPORT NO BED AVAILABILITY TODAY, [facility] WHO REPORTS NO BED OF YET, IS STILL ON WAIT LIST, NOT LIKELY FOR BED TODAY. [facility] WHO REPORTS NO BEDS AT THIS TIME, THEY ARE BOARDING ED PATIENTS. ERP IS AWARE.
--- NOTE | 2022-04-05 11:12 | PC.NURSE ---
PT ONLY ATE A FEW BITES OF HIS BREAKFAST, DID DRINK ALL OF HIS JUICE. PT REPORTS HE DOES NOT HAVE MUCH OF AN APPETITE, DOES REQUEST MORE ICE CHIPS AND THEY ARE PROVIDED. AT BEDSIDE AT THIS TIME. PT DENIES ANY OTHER NEEDS OR COMPLAINTS. PT IS SITTING IN THE RECLINER, PILLOW BEHIND HIS BACK FOR COMFORT. WILL CONTINUE TO MONITOR. PT IS AWAITING REPEAT LACTIC TO BE OBTAINED.
--- NOTE | 2022-04-05 11:53 | PC.NURSE ---
PT DECLINES LUNCH TRAY AT THIS TIME. AT BEDSIDE. VSS. NAD NOTED. WILL CONTINUE TO MONITOR.
--- NOTE | 2022-04-05 12:42 | PC.NURSE ---
LUNCH TRAY PROVIDED AT THIS TIME. HOSPITALIST RETURNS CALL, AWAITING FURTHER DECISION. WILL CONTINUE TO MONITOR.
--- NOTE | 2022-04-05 13:16 | PC.NURSE ---
PT IS TO BE ADMITTED TO [facility], AWAITING ROOM ASSIGNMENT AT THIS TIME.
--- NOTE | 2022-04-05 13:32 | PC.NURSE ---
PT ATE OVER 50% OF HIS LUNCH, REPORTS HIS FEELING BETTER AT THIS TIME. REPORT CALLED TO FLOOR. PT TO BE ADMITTED TO ROOM 207
--- NOTE | 2022-04-05 13:50 | ADMGEN ---
This patient, Seun Burgess Jr., was admitted to 2nd Floor Room 207-2. Patient/family oriented to hospital policies and general routines including ID bracelet, bed and alarms, visiting hours, pain management, procedures, bathroom and other care routines, personal items, smoking policy, room service/diet, and visiting hours. Information on how to activate the Rapid Response Team has been discussed. Patient/Family are encouraged to report perceived risks to care and to ask questions if they do not understand what they are told or what they should do.
[2022-04-05 18:21] LABS: Glucose Point of Care 164 mg/dl (65-105)
--- NOTE | 2022-04-05 20:06 | PC.NURSE ---
[facility] called and stated there are still not beds available.
--- NOTE | 2022-04-05 20:30 | PC.NURSE ---
Old dressing to back removed, large amount serosanguinous drainage noted. Site cleansed with dermal wound cleanser. Incision 5cm in length, incision intact, small amounts yellow drainage noted on incision line. Picture taken and documented. Site covered with aquacell foam dressing. Pt to bed with assist of one, gait steady.
[2022-04-05] MEDS: PRAVASTATIN SODIUM 10 MG TABLET PO (21:23)
[2022-04-05 21:28] LABS: Glucose Point of Care 182 mg/dl (65-105)
--- NOTE | 2022-04-06 02:40 | PC.NURSE ---
complaints of nausea, wants up to chair, assisted with use of SBA and cane to get from bed to chair, dressing to back peeling off, new dressing applied, call light in reach of patient for safety
[2022-04-06] MEDS: ONDANSETRON INJ 4 MG/2 ML VIAL IV PUSH (02:42)
[2022-04-06 02:53] VITALS: BP 155/56; PULSE 98; RESP 18; TEMP 37.3; O2SAT 92
[2022-04-06 04:00] VITALS: PULSE 102
--- NOTE | 2022-04-06 04:09 | PC.NURSE ---
[facility] transfer center called and said they might have a bed available for pt. They asked for information on pt and it was given. They said they will call back when a bed is ready for pt.
--- NOTE | 2022-04-06 04:16 | PC.NURSE ---
Nausea slightly improved, no emesis, remains in chair, legs elevated at this time, call light in reach of patient
--- NOTE | 2022-04-06 04:32 | PC.NURSE ---
Ave Marcelo NP, called to say that pt has been accepted for transfer to [facility] in [place], [place] for further evaluation.
--- NOTE | 2022-04-06 04:33 | PM.SD2 ---
Same Day Admit/Disch: HPI History of Present Illness Chief complaint: post of surgical infection ANGELICA Hyponatremia <Cedric Marcelo NP - Last Filed: 04/17/22 14:48> Narrative: Seun Ortiz Everardowilfrid Carr. is a 77 year old male ? ? 77-year-old male with a history of hypertension, LVH/ diastolic dysfunction, adenocarcinoma the prostate, BPH had back surgery? two weeks ago at [facility]. he presents to the ER with -- nausea with multiple episodes of vomiting ? which started 3 days ago. --? Ongoing postoperative back pain. ? He has watery discharge from the operative site. -- generalized weakness.? He went to take a shower and felt his legs give out.? No falls or fall injury noted. --? Generalized? rash ? which is non itchy and started this morning. -- fever with a T-max of 101.2 ? He has had bilateral total knee replacements along with repair of a testicular hydrocele. ? He has had history of Vicodin use in the past. ? No new medications except for antibiotics during? during the perioperative period and Vicodin <Cedric Marcelo NP - Last Filed: 04/17/22 14:48> Edgarkelsie Mcgeewilfrid Carr. is a 77 year old male ? ? 77-year-old male with a history of hypertension, LVH/ diastolic dysfunction, adenocarcinoma the prostate, BPH had back surgery? two weeks ago at [facility]. he presents to the ER with -- nausea with multiple episodes of vomiting ? which started 3 days ago. --? Ongoing postoperative back pain. ? He has watery discharge from the operative site. -- generalized weakness.? He went to take a shower and felt his legs give out.? No falls or fall injury noted. --? Generalized? rash ? which is non itchy and started this morning. -- fever with a T-max of 101.2 ? He has had bilateral total knee replacements along with repair of a testicular hydrocele. ? He has had history of Vicodin use in the past. ? No new medications except for antibiotics during? during the perioperative period and Vicodin <LIBRADO Herrmann - Last Filed: 04/06/22 13:07> [facility] Past Medical History Medical History: Medical History Arthritis H/O prostate cancer Hyperlipidemia Hypertension <Cedric Marcelo NP - Last Filed: 04/17/22 14:48> Social History Social History: Social History Smoking packs per day: 1 Smoking cigarettes per day: 20.0 Years smoked: 30 Smoking pack-years: 30.00 Smoking status: Former smoker Second hand tobacco smoke exposure: No Additional smoking assessment comments: PT UNABLE TO RECALL WHEN QUITTING Alcohol intake: former Substance use: never Substance use type: does not use Lack of Transportation: No Lack of Food: Never True Current Housing: I Have Housing Concerned About Future Housing: No Difficulty Paying Gas/Electric Bills: No Difficulty Paying for Meds: No Currently Unemployed: No Education: High School Diploma/GED Difficulty w/ Childcare or Family Care: No Spiritual care concerns: No <Cedric Marcelo NP - Last Filed: 04/17/22 14:48> Same Day Admit/Disch: Med Pre-admit Medications Home Medications: Home Medications Medication Instructions Recorded Confirmed Type amlodipine 10 mg tablet 5 mg PO [facility] 09/25/20 04/05/22 History aspirin 81 mg tablet,delayed 81 mg PO DAILY 09/25/20 04/05/22 History release cetirizine 5 mg tablet 5 mg PO HS 09/25/20 04/05/22 History clonidine HCl 0.1 mg tablet 0.1 mg QA 09/25/20 04/05/22 History doxazosin 8 mg tablet 16 mg PO HS 09/25/20 04/05/22 History hydrochlorothiazide 25 mg tablet 25 mg PO QAM 09/25/20 04/05/22 History losartan 100 mg tablet 100 mg PO QAM 09/25/20 04/05/22 History pravastatin 10 mg tablet 10 mg PO HS 09/25/20 04/05/22 History cholecalciferol (vitamin D3) 25 25 mcg PO DAILY 04/05/22 04/05/22 History mcg (1,000 unit) tablet (Vitamin D3) hydrocodone 10 mg-glenn
--- NOTE | 2022-04-06 05:14 | PC.NURSE ---
Dressing saturated with serous purulent drge, 4x4 and abd dressing re applied at this time, will continue to monitor drge from back surgical site
[2022-04-06 05:15] LABS: Basophils Absolute Auto 0.01 K/mm3 (0.00-0.10); Basophils Percent Auto 0.1 % (0.0-1.0); Eosinophils Absolute Auto 0.52 K/mm3 (0.02-0.50); Eosinophils Percent Auto 5.9 % (1.0-6.0); Hematocrit 32.9 % (37.0-46.0); Hemoglobin 10.9 g/dL (12.4-15.3); Immature Granulocyte Absolute 0.04 K/mm3 (0.00-0.00); Immature Granulocyte Percent A 0.5 % (0.0-0.0); Lymphocytes Absolute Auto 0.31 K/mm3 (1.10-4.50); Lymphocytes Percent Auto 3.5 % (18.0-42.0); Mean Corpuscular HGB Conc 33.1 g/dL (32.0-36.0); Mean Corpuscular Hemoglobin 29.3 pg (27.0-31.0); Mean Corpuscular Volume 88.4 fL (78.0-102.0); Mean Platelet Volume 10.4 fl (8.7-11.0); Monocytes Absolute Auto 0.33 K/mm3 (0.10-0.90); Monocytes Percent Auto 3.7 % (2.0-11.0); Neutrophils Absolute Auto 7.6 K/mm3 (1.7-7.2); Neutrophils Percent Auto 86.3 % (50.0-70.0); Platelet Count Result 258 K/mm3 (150-420); Red Blood Count 3.72 M/mm3 (4.70-6.10); Red Cell Distribution Width 13.6 % (11.6-14.4); White Blood Count 8.8 K/mm3 (4.8-10.8)
[2022-04-06 05:38] LABS: Anion Gap 5 mmol/L (8-16); Blood Urea Nitrogen 46 mg/dL (7-18); Carbon Dioxide 30 mmol/L (21-32); Chloride 97 mmol/L (98-108); Estimated CRCL calculation 32 ml/min; Estimated Glomerular Filt Rate 28; Glucose 189 mg/dL (70-99); Osmolality Calculated 290 mOsm/kg (285-295); Potassium 4.2 mmol/L (3.5-5.1); Sodium 132 mmol/L (136-145)
--- NOTE | 2022-04-06 05:40 | PC.NURSE ---
[facility] call center called to get report on patient; Full report given and pt will be going to rm. [phone] at [facility] in [place], [place].
--- NOTE | 2022-04-06 05:49 | PC.NURSE ---
Copies of chart in packet, consent for transfer obtained from patient
--- NOTE | 2022-04-06 05:53 | PC.NURSE ---
[facility] notified of pt needing to be transferred to [facility] in [place], [place]. Report given to dispatcher.
--- NOTE | 2022-04-06 06:13 | PC.NURSE ---
[facility] here to transport pt to [facility] in [place], [place].
--- NOTE | 2022-04-06 06:20 | PC.NURSE ---
Report to EMS, chart to EMS for transfer, patient alert and oriented x4, agreable to transfer to [facility] via [facility], notified of transfer, personal items sent with patient
--- NOTE | 2022-04-07 01:12 | PC.NURSE ---
PRELIMINARY AEROBIC CULTURE RESULTS: GRAM POSITIVE COCCI IN CLUSTERS, NO SENSITIVITIES OF YET. PT WAS TRANSFERRED TO [facility], FLOAT BUILDERCHALINO MILLER ON THE 9TH FLOOR TOOK RESULTS.
== END 2022-04-06 06:20 | disposition short-term general hospital (02) | DRG 862 ==
LOC: CHSED 13:22 → CHS2ND 13:23
PROVIDERS: Internal Medicine Critical Care Medicine; Nurse Practitioner Family; Admitting Provider Internal Medicine; Emergency Provider Emergency Medicine; PCP Internal Medicine; Visit Provider Internal Medicine
DX: T81.44XA Sepsis following a procedure, initial encounter (principal); A41.9 Sepsis, unspecified organism; C61 Malignant neoplasm of prostate; N40.0 Benign prostatic hyperplasia without lower urinary tract symptoms; I10 Essential (primary) hypertension; M54.9 Dorsalgia, unspecified; Z79.82 Long term (current) use of aspirin; E78.5 Hyperlipidemia, unspecified; R65.20 Severe sepsis without septic shock; R33.9 Retention of urine, unspecified; G89.28 Other chronic postprocedural pain; Z20.822 Contact with and (suspected) exposure to COVID-19; N17.9 Acute kidney failure, unspecified; R21 Rash and other nonspecific skin eruption; Z87.891 Personal history of nicotine dependence; Z96.653 Presence of artificial knee joint, bilateral
CPT/HCPCS: 36415; 71045; 80048; 80053; 81001; 82948; 83605; 83690; 84484; 85025; 85610; 85730; 87040; 87070; 87147; 87186; 87205; 96365; 99285; A9270; J0692; J2405; J3370; J7030; J7120; U0003; U0005

== ENCOUNTER 2022-05-19 08:58 | Outpatient (CLI) | payer MEDICARE, SELFPAY ==
[2022-05-19] MEDS: ceFAZolin 2 GM/D5W 50 ML 2 GM/50 ML BAG IVPB (15:49)
== END 2022-05-19 08:59 | disposition home or self-care (01) ==
PROVIDERS: PCP Internal Medicine
DX: M46.26 Osteomyelitis of vertebra, lumbar region (principal)
CPT/HCPCS: 96365; J0690

== ENCOUNTER 2022-05-23 12:29 | Outpatient (NON) | payer MEDICARE, SELFPAY ==
[2022-05-23 12:45] LABS: Basophils Absolute Auto 0.03 K/mm3 (0.00-0.10); Basophils Percent Auto 0.4 % (0.0-1.0); Eosinophils Absolute Auto 0.49 K/mm3 (0.02-0.50); Eosinophils Percent Auto 6.7 % (1.0-6.0); Hematocrit 33.4 % (37.0-46.0); Hemoglobin 11.3 g/dL (12.4-15.3); Immature Granulocyte Absolute 0.02 K/mm3 (0.00-0.00); Immature Granulocyte Percent A 0.3 % (0.0-0.0); Lymphocytes Absolute Auto 1.76 K/mm3 (1.10-4.50); Lymphocytes Percent Auto 24.1 % (18.0-42.0); Mean Corpuscular HGB Conc 33.8 g/dL (32.0-36.0); Mean Corpuscular Hemoglobin 29.9 pg (27.0-31.0); Mean Corpuscular Volume 88.4 fL (78.0-102.0); Mean Platelet Volume 10.7 fl (8.7-11.0); Monocytes Absolute Auto 0.53 K/mm3 (0.10-0.90); Monocytes Percent Auto 7.3 % (2.0-11.0); Neutrophils Absolute Auto 4.5 K/mm3 (1.7-7.2); Neutrophils Percent Auto 61.2 % (50.0-70.0); Platelet Count Result 257 K/mm3 (150-420); Red Blood Count 3.78 M/mm3 (4.70-6.10); Red Cell Distribution Width 13.7 % (11.6-14.4); White Blood Count 7.3 K/mm3 (4.8-10.8)
[2022-05-23 13:04] LABS: Alanine Aminotransferase 9 U/L (16-63); Albumin Level 2.9 g/dL (3.4-5.0); Alkaline Phosphatase 167 U/L (46-116); Anion Gap 6 mmol/L (8-16); Aspartate Amino Transferase 20 U/L (15-37); Bilirubin,Total 0.4 mg/dL (0.00-1.00); Blood Urea Nitrogen 23 mg/dL (7-18); CRP < 0.5 mg/dL (0.0-0.9); Carbon Dioxide 34 mmol/L (21-32); Chloride 104 mmol/L (98-108); Estimated Glomerular Filt Rate 59; Glucose 133 mg/dL (70-99); Osmolality Calculated 303 mOsm/kg (285-295); Potassium 3.4 mmol/L (3.5-5.1); Sodium 144 mmol/L (136-145); Total Protein 7.5 g/dL (6.4-8.2)
[2022-05-23 14:25] LABS: Erythrocyte Sedimentation Rate 53 mm/hr (0-20)
== END 2022-05-23 12:30 | disposition home or self-care (01) ==
LOC: CHSLAB 12:34
PROVIDERS: PCP Internal Medicine
DX: A41.01 Sepsis due to Methicillin susceptible Staphylococcus aureus (principal)
CPT/HCPCS: 36415; 80053; 85025; 85652; 86140

== ENCOUNTER 2022-05-30 10:55 | Outpatient (NON) | payer MEDICARE, SELFPAY ==
[2022-05-30 11:09] LABS: Basophils Absolute Auto 0.03 K/mm3 (0.00-0.10); Basophils Percent Auto 0.5 % (0.0-1.0); Eosinophils Absolute Auto 0.52 K/mm3 (0.02-0.50); Eosinophils Percent Auto 8.7 % (1.0-6.0); Hematocrit 32.3 % (37.0-46.0); Hemoglobin 10.8 g/dL (12.4-15.3); Immature Granulocyte Absolute 0.01 K/mm3 (0.00-0.00); Immature Granulocyte Percent A 0.2 % (0.0-0.0); Lymphocytes Absolute Auto 1.37 K/mm3 (1.10-4.50); Mean Corpuscular HGB Conc 33.4 g/dL (32.0-36.0); Mean Corpuscular Volume 89.7 fL (78.0-102.0); Mean Platelet Volume 10.9 fl (8.7-11.0); Monocytes Absolute Auto 0.38 K/mm3 (0.10-0.90); Monocytes Percent Auto 6.4 % (2.0-11.0); Neutrophils Absolute Auto 3.6 K/mm3 (1.7-7.2); Neutrophils Percent Auto 61.2 % (50.0-70.0); Platelet Count Result 223 K/mm3 (150-420); Red Cell Distribution Width 13.3 % (11.6-14.4)
[2022-05-30 11:24] LABS: Albumin Level 2.8 g/dL (3.4-5.0); Alkaline Phosphatase 143 U/L (46-116); Anion Gap 4 mmol/L (8-16); Aspartate Amino Transferase 14 U/L (15-37); Bilirubin,Total 0.3 mg/dL (0.00-1.00); Blood Urea Nitrogen 23 mg/dL (7-18); Calcium 8.5 mg/dL (8.5-10.1); Carbon Dioxide 33 mmol/L (21-32); Chloride 106 mmol/L (98-108); Estimated Glomerular Filt Rate > 60; Glucose 172 mg/dL (70-99); Osmolality Calculated 303 mOsm/kg (285-295); Potassium 3.6 mmol/L (3.5-5.1); Sodium 143 mmol/L (136-145)
[2022-05-30 11:31] LABS: Alanine Aminotransferase 7 U/L (16-63)
[2022-05-30 12:12] LABS: Erythrocyte Sedimentation Rate 49 mm/hr (0-20)
[2022-06-01 08:00] LABS: CRP < 0.5 mg/dL (0.0-0.9)
== END 2022-05-30 10:56 | disposition home or self-care (01) ==
LOC: CHSLAB 10:59
DX: A41.01 Sepsis due to Methicillin susceptible Staphylococcus aureus (principal)
CPT/HCPCS: 36415; 80053; 85025; 85652; 86140

== ENCOUNTER 2022-06-15 10:33 | Outpatient (RCR) | payer MEDICARE, SELFPAY ==
--- NOTE | 2022-06-15 11:33 | PTOPEVAL1 ---
Assessment and note entered by Zay Brewster Evaluation Information Assessment Status Evaluation Diagnosis low back pain, spinal stenosis Onset 03/21/22 Subjective Information Pt. reports that he underwent back surgery on . He states that he got an infection shortly after surgery and has been doing IV antibiotics. He had his PIC line removed this past weekend. He reports that that his back has been feeling better since surgery. He states that he still notices pain with long periods of standing. He describes pain across the low back and into the bilateral l.e.'s. He states that he can walk for about 15 minutes before having to sit due to pain. He states that this is improved compared to prior to surgery. He state that he has been using a stationary bike at home. He describes a laminectomy procedure and states that he was not fused. He reports that his goal is to improve his strength and to be able to stand longer. Reported Pain Level Pain Score 2: Self Report Assessment PT Clinical Summary Pt. is a 77 year old male post lumbar surgery. He presents with proximal l.e. weakness, impaired gait, impaired postural awareness, fall risk and impaired endurance. Continued skilled PT is indicated in order to improve these areas to allow the pt. to be able to participate in all IADL with improved efficiency and comfort. Plan of Care Interventions Electrical Stimulation,Gait Training,Hot Pack/Cold Pack,Manual Therapy,Neuro Re-education,Patient/ Caregiver Educati,Therapeutic Activities, Therapeutic Exercise PT Services Indicated Yes Treatment Frequency and 3x/week x 12 visits Duration These treatments will address the objective and functional deficits as defined above. The patient will be advanced safely and appropriately in order for the patient to progress towards his/her prior level of function. Additional exercises will be introduced and as well as a comprehensive home exercise program upon discharge, if needed, ?to ensure carryover of functional gains achieved in the clinic. This treatment plan has been reviewed and agreement upon by the patient.
--- NOTE | 2022-07-04 11:04 | PTOPEVAL1 ---
Assessment and note entered by Zay Brewster Evaluation Information Assessment Status Progress Diagnosis low back pain, spinal stenosis Onset 03/21/22 Subjective Information Pt. reports venus the is getting stronger. He states that he can stand longer with less intense pain. He notices he has been working outside and able to stand for about 30 minutes doing work in his shed. He reports that he still notices some weakness with going upstairs. He states that he would like to continue treatment focusing on leg strength. Reported Pain Level Pain Score 2: Self Report Assessment PT Clinical Summary Pt. continues to present with mild bilateral l.e. weakness. He demosntrates improved standing endurance and improved gait efficiency. Continue to address l.e. strength and endurance as pt. progresses towards all goals established at initial evaluation. Plan of Care Interventions Manual Therapy,Neuro Re-education,Therapeutic Activities,Therapeutic Exercise PT Services Indicated Yes Treatment Frequency and Continue with remaining 3 sessions of pt. POC Duration focusing on continuing to improve poostural awareness and strength. These treatments will address the objective and functional deficits as defined above. The patient will be advanced safely and appropriately in order for the patient to progress towards his/her prior level of function. Additional exercises will be introduced and as well as a comprehensive home exercise program upon discharge, if needed, ?to ensure carryover of functional gains achieved in the clinic. This treatment plan has been reviewed and agreement upon by the patient.
== END 2022-07-12 15:43 | disposition home or self-care (01) ==
LOC: CHSPT 10:33
DX: M48.061 Spinal stenosis, lumbar region without neurogenic claudication (principal)
CPT/HCPCS: 97110; 97112; 97150; 97161; 97530; 97750

== ENCOUNTER 2022-07-05 07:42 | Outpatient (CLI) | payer MEDICARE, SELFPAY ==
[2022-07-05 08:15] LABS: Hematocrit 35.7 % (37.0-46.0); Hemoglobin 11.7 g/dL (12.4-15.3); Mean Corpuscular HGB Conc 32.8 g/dL (32.0-36.0); Mean Corpuscular Hemoglobin 29.5 pg (27.0-31.0); Mean Corpuscular Volume 89.9 fL (78.0-102.0); Mean Platelet Volume 9.5 fl (8.7-11.0); Platelet Count Result 222 K/mm3 (150-420); Red Blood Count 3.97 M/mm3 (4.70-6.10); Red Cell Distribution Width 13.2 % (11.6-14.4); White Blood Count 6.4 K/mm3 (4.8-10.8)
[2022-07-05 08:16] LABS: Appearance Urine Clear (Clear); Bilirubin Urine Negative (Negative); Blood Urine Trace-Intact (Negative); Color Urine Light Yellow (Yellow); Glucose Urine UA Negative (Negative); Ketones Urine Negative (Negative); Leukocyte Esterase Ur Negative (Negative); Nitrate Urine Negative (Negative); Protein Urine 1+ (Negative); Urobilinogen Urine 0.2 mg/dL (0.2-1.0)
[2022-07-05 08:20] LABS: Add Urine Microscopic? YES; Bacteria Urine Rare /hpf; RBC Urine None seen /hpf (0-2); WBC Urine None seen /hpf (0-3)
[2022-07-05 08:36] LABS: Hemoglobin A1C 6.9 % (<5.7)
[2022-07-05 08:47] LABS: Band Neutrophils Percent 0 % (0-6); Basophils Absolute Manual 0.06 K/mm3 (0-0.1); Basophils Percent Manual 1 % (0-1); Eosinophils Absolute Manual 0.76 K/mm3 (0.02-0.5); Eosinophils Percent Manual 12 % (1-6); Lymphocytes Percent Manual 25 % (18-44); Monocytes Absolute Manual 0.51 K/mm3 (0.1-0.90); Monocytes Percent Manual 8 % (3-9); Neutrophils Absolute Manual 3.45 K/mm3 (1.3-6.7); Neutrophils Percent Manual 54 % (46-73); Platelet Estimate Adequate (Adequate); Total Cells Counted 100
[2022-07-05 09:17] LABS: Alanine Aminotransferase 15 U/L (16-63); Albumin Level 3.3 g/dL (3.4-5.0); Alkaline Phosphatase 117 U/L (46-116); Anion Gap 7 mmol/L (8-16); Aspartate Amino Transferase 17 U/L (15-37); Bilirubin,Total 0.4 mg/dL (0.00-1.00); Blood Urea Nitrogen 24 mg/dL (7-18); Carbon Dioxide 32 mmol/L (21-32); Chloride 108 mmol/L (98-108); Cholesterol 182 mg/dL (0-200); Creatine Kinase 52 U/L (39-308); Estimated Glomerular Filt Rate 58; Ferritin 27 ng/mL (26-388); Free T4 Free Thyroxine 0.93 ng/dL (0.76-1.46); Glucose 123 mg/dL (70-99); HDL Direct 53 mg/dL (40-60); Iron 63 ug/dL (65-175); LDL Cholesterol Calculated 102 mg/dL (<130); Osmolality Calculated 309 mOsm/kg (285-295); Sodium 147 mmol/L (136-145); Thyroid Stimulating Hormone 2.99 uIU/mL (0.36-3.74); Total Protein 6.9 g/dL (6.4-8.2); Triglycerides 134 mg/dL (0-150); Vitamin B12 344 pg/mL (193-986)
[2022-07-05 10:53] LABS: Calcium 8.8 mg/dL (8.5-10.1)
[2022-07-10 23:18] LABS: Red Blood Cell Folate 696 ng/mL RBC (>280)
== END 2022-07-05 07:43 | disposition home or self-care (01) ==
LOC: CHSLAB 07:44
PROVIDERS: PCP Internal Medicine; Visit Provider Internal Medicine
DX: D64.9 Anemia, unspecified (principal); E83.110 Hereditary hemochromatosis; E11.40 Type 2 diabetes mellitus with diabetic neuropathy, unspecified; R53.82 Chronic fatigue, unspecified; E78.2 Mixed hyperlipidemia; I10 Essential (primary) hypertension; N30.00 Acute cystitis without hematuria; R82.90 Unspecified abnormal findings in urine
CPT/HCPCS: 36415; 80053; 80061; 81001; 82550; 82607; 82728; 82747; 83036; 83540; 84439; 84443; 85025; 87077; 87086; 87088; 87186

== ENCOUNTER 2022-07-11 15:00 | Outpatient (CLI) | payer MEDICARE, SELFPAY ==
[2022-07-11 15:13] LABS: Appearance Urine Clear (Clear); Bilirubin Urine Negative (Negative); Blood Urine Negative (Negative); Color Urine Light Yellow (Yellow); Glucose Urine UA Negative (Negative); Ketones Urine Negative (Negative); Leukocyte Esterase Ur 1+ (Negative); Nitrate Urine Negative (Negative); Protein Urine 1+ (Negative); Specific Grav Ur 1.015 (1.010-1.020); Urobilinogen Urine 0.2 mg/dL (0.2-1.0)
[2022-07-11 15:19] LABS: Add Urine Microscopic? YES; Bacteria Urine Trace /hpf; RBC Urine None seen /hpf (0-2); WBC Urine 0-3 /hpf (0-3)
== END 2022-07-11 15:01 | disposition home or self-care (01) ==
LOC: CHSLAB 15:03
PROVIDERS: PCP Internal Medicine; Visit Provider Internal Medicine
DX: N39.0 Urinary tract infection, site not specified (principal)
CPT/HCPCS: 81001; 87077; 87086; 87088; 87186

== ENCOUNTER 2022-07-20 07:09 | Outpatient (CLI) | payer MEDICARE, SELFPAY ==
[2022-07-20 07:37] LABS: Appearance Urine Clear (Clear); Bilirubin Urine Negative (Negative); Blood Urine Trace-Intact (Negative); Color Urine Light Yellow (Yellow); Glucose Urine UA Negative (Negative); Ketones Urine Negative (Negative); Leukocyte Esterase Ur Trace (Negative); Nitrate Urine Negative (Negative); Protein Urine Trace (Negative); Specific Grav Ur 1.015 (1.010-1.020); Urobilinogen Urine 0.2 mg/dL (0.2-1.0)
[2022-07-20 07:38] LABS: Bacteria Urine Rare /hpf; RBC Urine 0-2 /hpf (0-2); WBC Urine None seen /hpf (0-3)
[2022-07-20 07:46] LABS: Add Urine Microscopic? YES
== END 2022-07-20 07:10 | disposition home or self-care (01) ==
LOC: CHSLAB 07:11
PROVIDERS: PCP Internal Medicine; Visit Provider Internal Medicine
DX: R82.90 Unspecified abnormal findings in urine (principal); N39.0 Urinary tract infection, site not specified
CPT/HCPCS: 81001; 87086

== ENCOUNTER 2022-10-04 07:10 | Outpatient (CLI) | payer MEDICARE, SELFPAY ==
[2022-10-04 07:20] LABS: Hematocrit 37.7 % (37.0-46.0); Hemoglobin 12.5 g/dL (12.4-15.3); Mean Corpuscular HGB Conc 33.2 g/dL (32.0-36.0); Mean Corpuscular Hemoglobin 29.6 pg (27.0-31.0); Mean Corpuscular Volume 89.3 fL (78.0-102.0); Mean Platelet Volume 9.6 fl (8.7-11.0); Platelet Count Result 198 K/mm3 (150-420); Red Blood Count 4.22 M/mm3 (4.70-6.10); Red Cell Distribution Width 14.2 % (11.6-14.4); White Blood Count 5.8 K/mm3 (4.8-10.8)
[2022-10-04 08:02] LABS: Band Neutrophils Percent 1 % (0-6); Eosinophils Absolute Manual 0.58 K/mm3 (0.02-0.5); Eosinophils Percent Manual 10 % (1-6); Lymphocytes Absolute Manual 1.97 K/mm3 (1.1-4.5); Lymphocytes Percent Manual 34 % (18-44); Monocytes Percent Manual 7 % (3-9); Neutrophils Absolute Manual 2.84 K/mm3 (1.3-6.7); Neutrophils Percent Manual 48 % (46-73); Platelet Estimate Adequate (Adequate); Total Cells Counted 100
[2022-10-04 08:53] LABS: Ferritin 38 ng/mL (26-388); Iron 86 ug/dL (65-175)
== END 2022-10-04 07:11 | disposition home or self-care (01) ==
LOC: CHSLAB 07:11
PROVIDERS: PCP Internal Medicine; Visit Provider Internal Medicine
DX: D50.9 Iron deficiency anemia, unspecified (principal)
CPT/HCPCS: 36415; 82728; 83540; 85025

== ENCOUNTER 2023-01-06 07:03 | Outpatient (CLI) | payer MEDICARE, SELFPAY ==
[2023-01-06 07:21] LABS: Appearance Urine Clear (Clear); Bilirubin Urine Negative (Negative); Blood Urine Negative (Negative); Color Urine Light Yellow (Yellow); Glucose Urine UA Negative (Negative); Ketones Urine Negative (Negative); Leukocyte Esterase Ur Negative LEU/UL (Negative); Nitrate Urine Negative (Negative); Protein Urine Negative (Negative); Specific Grav Ur 1.015 (1.010-1.020); Urobilinogen Urine 0.2 mg/dL (0.2-1.0); pH Urine 6.5 (5.0-8.0)
[2023-01-06 07:30] LABS: Creatinine Urine 55.96 mg/dL (40-278); MALB Creatinine Ratio 88.8 mg/g (0-30); Microalbumin Urine Random 49.7 mg/L
[2023-01-06 07:32] LABS: Hemoglobin A1C 6.6 % (<5.7)
[2023-01-06 07:39] LABS: Basophils Absolute Auto 0.05 K/mm3 (0.00-0.10); Basophils Percent Auto 0.7 % (0.0-1.0); Eosinophils Absolute Auto 0.66 K/mm3 (0.02-0.50); Eosinophils Percent Auto 9.9 % (1.0-6.0); Hemoglobin 12.9 g/dL (12.4-15.3); Immature Granulocyte Absolute 0.01 K/mm3 (0.00-0.00); Immature Granulocyte Percent A 0.1 % (0.0-0.0); Lymphocytes Absolute Auto 2.02 K/mm3 (1.10-4.50); Lymphocytes Percent Auto 30.2 % (18.0-42.0); Mean Corpuscular HGB Conc 33.9 g/dL (32.0-36.0); Mean Corpuscular Hemoglobin 30.9 pg (27.0-31.0); Mean Corpuscular Volume 90.9 fL (78.0-102.0); Mean Platelet Volume 10.6 fl (8.7-11.0); Monocytes Absolute Auto 0.49 K/mm3 (0.10-0.90); Monocytes Percent Auto 7.3 % (2.0-11.0); Neutrophils Absolute Auto 3.5 K/mm3 (1.7-7.2); Neutrophils Percent Auto 51.8 % (50.0-70.0); Platelet Count Result 207 K/mm3 (150-420); Red Blood Count 4.18 M/mm3 (4.70-6.10); Red Cell Distribution Width 13.1 % (11.6-14.4); White Blood Count 6.7 K/mm3 (4.8-10.8)
[2023-01-06 07:41] LABS: Add Urine Microscopic? NO
[2023-01-06 08:21] LABS: Alanine Aminotransferase 17 U/L (16-63); Albumin Level 3.6 g/dL (3.4-5.0); Alkaline Phosphatase 119 U/L (46-116); Anion Gap 6 mmol/L (8-16); Aspartate Amino Transferase 22 U/L (15-37); Bilirubin,Total 0.9 mg/dL (0.00-1.00); Blood Urea Nitrogen 27 mg/dL (7-18); Calcium 8.9 mg/dL (8.5-10.1); Carbon Dioxide 28 mmol/L (21-32); Chloride 106 mmol/L (98-108); Cholesterol 153 mg/dL (0-200); Creatine Kinase 129 U/L (39-308); Estimated Glomerular Filt Rate > 60; Ferritin 83 ng/mL (26-388); Glucose 109 mg/dL (70-99); HDL Direct 48 mg/dL (40-60); Iron 84 ug/dL (65-175); LDL Cholesterol Calculated 67 mg/dL (<130); Osmolality Calculated 296 mOsm/kg (285-295); Potassium 4.2 mmol/L (3.5-5.1); Sodium 140 mmol/L (136-145); Total Protein 6.6 g/dL (6.4-8.2); Triglycerides 189 mg/dL (0-150)
== END 2023-01-06 07:04 | disposition home or self-care (01) ==
PROVIDERS: PCP Internal Medicine; Visit Provider Internal Medicine
DX: E78.2 Mixed hyperlipidemia (principal); E83.110 Hereditary hemochromatosis; E11.40 Type 2 diabetes mellitus with diabetic neuropathy, unspecified
CPT/HCPCS: 36415; 80053; 80061; 81003; 82043; 82550; 82728; 83036; 83540; 85025

== ENCOUNTER 2023-07-12 08:01 | Outpatient (CLI) | payer MEDICARE, SELFPAY ==
[2023-07-12 08:18] LABS: Basophils Absolute Auto 0.04 K/mm3 (0.00-0.10); Basophils Percent Auto 0.6 % (0.0-1.0); Eosinophils Absolute Auto 0.69 K/mm3 (0.02-0.50); Eosinophils Percent Auto 9.6 % (1.0-6.0); Hematocrit 39.8 % (37.0-46.0); Hemoglobin 13.3 g/dL (12.4-15.3); Immature Granulocyte Absolute 0.02 K/mm3 (0.00-0.00); Immature Granulocyte Percent A 0.3 % (0.0-0.0); Lymphocytes Absolute Auto 1.91 K/mm3 (1.10-4.50); Lymphocytes Percent Auto 26.7 % (18.0-42.0); Mean Corpuscular HGB Conc 33.4 g/dL (32-36); Mean Corpuscular Hemoglobin 30.8 pg (27.0-31.0); Mean Corpuscular Volume 92.1 fL (78.0-102.0); Mean Platelet Volume 9.8 fl (8.7-11.0); Monocytes Absolute Auto 0.52 K/mm3 (0.10-0.90); Monocytes Percent Auto 7.3 % (2.0-11.0); Neutrophils Absolute Auto 3.98 K/mm3 (1.70-7.20); Neutrophils Percent Auto 55.5 % (50.0-70.0); Platelet Count Result 185 K/mm3 (150-420); Red Blood Count 4.32 M/mm3 (4.70-6.10); Red Cell Distribution Width 12.9 % (11.6-14.4); White Blood Count 7.2 K/mm3 (4.8-10.8)
[2023-07-12 08:25] LABS: Creatinine Urine 75.94 mg/dL (40-278); MALB Creatinine Ratio 73.2 mg/g (0-30); Microalbumin Urine Random 55.6 mg/L
[2023-07-12 08:30] LABS: Appearance Urine Clear (Clear); Bilirubin Urine Negative (Negative); Blood Urine Negative (Negative); Color Urine Light Yellow (Yellow); Glucose Urine UA Negative (Negative); Ketones Urine Negative (Negative); Leukocyte Esterase Ur Negative (Negative); Nitrate Urine Negative (Negative); Protein Urine Negative (Negative); Specific Grav Ur 1.015 (1.010-1.020); Urobilinogen Urine 0.2 mg/dL (0.2-1.0)
[2023-07-12 08:32] LABS: Add Urine Microscopic? NO
[2023-07-12 08:36] LABS: Hemoglobin A1C 6.3 % (<5.7)
[2023-07-12 09:08] LABS: Alanine Aminotransferase 19 U/L (16-63); Albumin Level 3.5 g/dL (3.4-5.0); Alkaline Phosphatase 117 U/L (46-116); Anion Gap 8 mmol/L (8-16); Aspartate Amino Transferase 13 U/L (15-37); Bilirubin,Total 0.6 mg/dL (0.00-1.00); Blood Urea Nitrogen 23 mg/dL (7-18); Calcium 8.7 mg/dL (8.5-10.1); Carbon Dioxide 31 mmol/L (21-32); Chloride 108 mmol/L (98-108); Cholesterol 142 mg/dL (0-200); Creatine Kinase 40 U/L (39-308); Estimated Glomerular Filt Rate 57; Ferritin 32 ng/mL (26-388); Glucose 105 mg/dL (70-99); HDL Direct 52 mg/dL (40-60); Iron 57 ug/dL (65-175); LDL Cholesterol Calculated 61 mg/dL (<130); Osmolality Calculated 307 mOsm/kg (285-295); Potassium 4.2 mmol/L (3.5-5.1); Sodium 147 mmol/L (136-145); Total Protein 6.6 g/dL (6.4-8.2); Triglycerides 147 mg/dL (0-150)
== END 2023-07-12 08:02 | disposition home or self-care (01) ==
LOC: CHSLAB 08:03
PROVIDERS: PCP Internal Medicine; Visit Provider Internal Medicine
DX: E78.2 Mixed hyperlipidemia (principal); I10 Essential (primary) hypertension; E11.40 Type 2 diabetes mellitus with diabetic neuropathy, unspecified; E83.110 Hereditary hemochromatosis
CPT/HCPCS: 36415; 80053; 80061; 81003; 82043; 82550; 82728; 83036; 83540; 85025

== ENCOUNTER 2023-09-15 07:12 | Outpatient (CLI) | payer MEDICARE, SELFPAY ==
[2023-09-15 07:25] LABS: Hemoglobin 13.5 g/dL (12.4-15.3); Mean Corpuscular HGB Conc 32.9 g/dL (32-36); Mean Corpuscular Hemoglobin 30.5 pg (27.0-31.0); Mean Corpuscular Volume 92.8 fL (78.0-102.0); Mean Platelet Volume 10.4 fl (8.7-11.0); Platelet Count Result 194 K/mm3 (150-420); Red Blood Count 4.42 M/mm3 (4.70-6.10); Red Cell Distribution Width 12.9 % (11.6-14.4); White Blood Count 7.3 K/mm3 (4.8-10.8)
[2023-09-15 08:14] LABS: Ferritin 44 ng/mL (26-388); Iron 64 ug/dL (65-175)
== END 2023-09-15 07:13 | disposition home or self-care (01) ==
LOC: CHSLAB 07:15
PROVIDERS: PCP Internal Medicine; Visit Provider Internal Medicine
DX: D50.9 Iron deficiency anemia, unspecified (principal)
CPT/HCPCS: 36415; 82728; 83540; 85027

== ENCOUNTER 2024-01-13 08:26 | Outpatient (CLI) | payer MEDICARE, SELFPAY ==
[2024-01-13 08:54] LABS: Hematocrit 40.6 % (37.0-46.0); Mean Corpuscular HGB Conc 34.5 g/dL (32-36); Mean Corpuscular Hemoglobin 31.2 pg (27.0-31.0); Mean Corpuscular Volume 90.4 fL (78.0-102.0); Mean Platelet Volume 10.2 fl (8.7-11.0); Platelet Count Result 180 K/mm3 (150-420); Red Blood Count 4.49 M/mm3 (4.70-6.10); Red Cell Distribution Width 12.4 % (11.6-14.4); White Blood Count 5.7 K/mm3 (4.8-10.8)
[2024-01-13 08:55] LABS: Add Urine Microscopic? NO; Appearance Urine Clear (Clear); Bilirubin Urine Negative (Negative); Blood Urine Negative (Negative); Color Urine Light Yellow (Yellow); Glucose Urine UA Negative (Negative); Ketones Urine Negative (Negative); Leukocyte Esterase Ur Negative (Negative); Nitrate Urine Negative (Negative); Protein Urine Negative (Negative); Specific Grav Ur 1.015 (1.010-1.020); Urobilinogen Urine 0.2 mg/dL (0.2-1.0)
[2024-01-13 09:03] LABS: Hemoglobin A1C 6.1 % (<5.7)
[2024-01-13 09:06] LABS: Creatinine Urine 53.24 mg/dL (40-278)
[2024-01-13 09:14] LABS: MALB Creatinine Ratio 74.7 mg/g (0-30); Microalbumin Urine Random 39.8 mg/L
[2024-01-13 09:42] LABS: Alanine Aminotransferase 17 U/L (16-63); Albumin Level 3.6 g/dL (3.4-5.0); Alkaline Phosphatase 124 U/L (46-116); Anion Gap 8 mmol/L (4-12); Aspartate Amino Transferase 17 U/L (15-37); Blood Urea Nitrogen 20 mg/dL (7-18); Calcium 8.5 mg/dL (8.5-10.1); Carbon Dioxide 30 mmol/L (21-32); Chloride 104 mmol/L (98-108); Cholesterol 147 mg/dL (0-200); Creatine Kinase 55 U/L (39-308); Estimated Glomerular Filt Rate 48; Ferritin 37 ng/mL (26-388); Free T3 2.07 pg/mL (2.18-3.98); Free T4 Free Thyroxine 0.97 ng/dL (0.76-1.46); Glucose 106 mg/dL (70-99); HDL Direct 43 mg/dL (40-60); Iron 74 ug/dL (65-175); LDL Cholesterol Calculated 74 mg/dL (<130); NT Pro B Type Natriuretic Pept 136 pg/mL (0-450); Osmolality Calculated 296 mOsm/kg (285-295); Potassium 4.3 mmol/L (3.5-5.1); Sodium 142 mmol/L (136-145); Thyroid Stimulating Hormone 2.22 uIU/mL (0.36-3.74); Total Protein 6.6 g/dL (6.4-8.2); Triglycerides 152 mg/dL (0-150)
== END 2024-01-13 08:27 | disposition home or self-care (01) ==
LOC: CHSLAB 08:28
PROVIDERS: PCP Internal Medicine; Visit Provider Internal Medicine
DX: R53.82 Chronic fatigue, unspecified (principal); I10 Essential (primary) hypertension; E83.110 Hereditary hemochromatosis; E78.2 Mixed hyperlipidemia; I50.9 Heart failure, unspecified
CPT/HCPCS: 36415; 80053; 80061; 81003; 82043; 82550; 82728; 83036; 83540; 83880; 84439; 84443; 84481; 85027

== ENCOUNTER 2024-03-16 07:04 | Outpatient (CLI) | payer MEDICARE, SELFPAY ==
[2024-03-16 07:52] LABS: Anion Gap 9 mmol/L (4-12); Blood Urea Nitrogen 20 mg/dL (7-18); Calcium 8.7 mg/dL (8.5-10.1); Carbon Dioxide 31 mmol/L (21-32); Chloride 104 mmol/L (98-108); Estimated Glomerular Filt Rate 52; Glucose 129 mg/dL (70-99); Osmolality Calculated 302 mOsm/kg (285-295); Potassium 4.3 mmol/L (3.5-5.1); Sodium 144 mmol/L (136-145)
== END 2024-03-16 07:05 | disposition home or self-care (01) ==
LOC: CHSLAB 07:05
PROVIDERS: PCP Internal Medicine; Visit Provider Internal Medicine
DX: I10 Essential (primary) hypertension (principal)
CPT/HCPCS: 36415; 80048

== ENCOUNTER 2024-06-03 18:48 | Emergency (ER) | payer MEDICARE, SELFPAY ==
--- NOTE | ~2024-06-03 | XR_ITS ---
CHEST RADIOGRAPH CLINICAL HISTORY: dyspnea . COMPARISON: 04/05/2022 TECHNIQUE: Single portable view of the chest. FINDINGS The cardiomediastinal silhouette is unremarkable. Increased interstitial markings are identified bilaterally, findings suggesting mild pulmonary vascul ar congestion. The remainder of the lungs are clear. IMPRESSION: Mild pulmonary vascular congestion, without focal infiltrate or effusion. Reviewed, dictated and finalized at location A. EATIONAL LEADER
--- OUTSIDE RECORDS SUMMARY | 2024-06-03 18:51 | XMS_ITS | Encounter Summary ---
Author Organization [facility] Address [address] [place] [address] Care Team Providers Care Aircraft Instrument Tester Name Role Phone Chester Goodwin MD Primary Care Provider [phone] Jareth Michel MD Unavailable Unavailab Nikhil Lincoln MD Unavailable UnavailBaron Shetty MD Unavailable [phone] Hung Jiménez MD Unavailable [phone] Encounter Details Date Type Department Care Team (Late Contact Info) Description 03/29/2016 Abstract [facility] [address] [place] [phone] Dana Brown, RN Social History Tobacco Use Types Packs/Day Years Used Date Smoking Tobacco: Former Alcohol Use Standard Drinks/Week Comments No 0 (1 standard drink = 0.6 oz pur e alcohol) Sex and Gender Information Value Date Recorded Sex Assigned at Not on file Legal Sex Male 3:47 AM CDT Gender Identity Not on file Sexual Orientation Not on file Occupation Industry Job Start Date Job End Date Retired Not on file Not on file Not on file documented as of this encounter Plan of Treatment Upcoming Encounters Date Type Department Care Team (Late Contact Info) Description 06/26/2024 9:[address] LIGHT Office Visit [facility] [place] [phone] Hung Jiménez MD [address] [place], [place] [address] documented as of this encounter Visit Diagnoses Not on filedocumented in this encounter Additional Health Concerns Infection Onset Date Last Indicated Resolved Time COVID-19 Rule Out 06/11/2021 06/11/2021 06/11/2021 8:[address] LIGHT COVID-19 Rule Out 04/06/2022 04/07/2022 04/07/2022 8:[address] LIGHT documented as of this encounter Care Teams Aircraft Instrument Tester Relationship Specialty Start Date End Date Chseter Goodwin MD [address] [place] [phone] PCP - General INTERNAL MEDICINE 03/29/16 Jareth Michel MD [address] [place] [phone] [place] Service Worker CARDIOVASCULAR DISEASE 10/21/16 06/04/18 Nikhil Davis MD [address] [place] [address] [place] Service Worker CARDIOVASCULAR DISEASE 06/05/18 12/05/23 Baron Harris MD [address] [place] [address] Consulting Physician ORTHOPAEDIC SURGERY 02/10/22 Hung Jiménez MD [address] [place] [address] INTERVENTIONAL CARDIOLOGY 12/06/23 documented as of this encounter
--- OUTSIDE RECORDS SUMMARY | 2024-06-03 18:51 | XMS_ITS | CONTINUITY OF CARE DOCUMENT ---
Author Name popeye nye Address Unknown Organization [facility] Address [address] [facility] [address] [place] [address] Phone [phone] Care Team Providers Care Machine Adjuster Leader Case Trim Name Role Phone Thomas DURBIN, Krystina Unavailable INSURANCE PROVIDERS Payer name Policy type / Coverage type Moises red democrat [employer] Commercial insurance [facility] [id number] [place] Medicare [id number]
--- OUTSIDE RECORDS SUMMARY | 2024-06-03 18:51 | XMS_ITS | Encounter Summary ---
Author Organization [facility] Address [address] [place] [address] Care Team Providers Care Rn Allergy Name Role Phone Chester Goodwin MD Primary Care Provider [phone] Nikhil Davis MD Unavailable Unavailabl e Baron Harris MD Unavailable [phone] Hung Jiménez MD Unavailable [phone] Encounter Details Date Type Department Care Team (Late st Contact Info) Description 04/14/2022 Hospital Follow-up Call [facility] [address] [place] [address] Emilie Fournier RN Social History Tobacco Use Types Packs/Day Years Used Date Smoking Tobacco: Former Cigarettes Smokeless Tobacco: Never Comments:Years ago Alcohol Use Standard Drinks/Week Comments No 0 (1 standard drink = 0.6 oz pur e alcohol) Sex and Gender Information Value Date Recorded Sex Assigned at Not on file Legal Sex Male 3:47 AM CDT Gender Identity Not on file Sexual Orientation Not on file Occupation Industry Job Start Date Job End Date Retired Not on file Not on file Not on file COVID-19 Exposure Response Date Recorded In the last 10 days, have yo u been in contact with someone who was confirmed or suspected to have Coronavirus/COVID-19? No / Unsure 04/08/2022 1:52 PM REEL REPAIRER documented as of this encounter Functional Status * RETIRED Are you deaf or do you have serious difficulty hearing Answer Date of Assessment Author Status No 04/08/2022 1:00 PM REEL REPAIRER Activ e * RETIRED Are you blind or do you have serious difficulty seeing, even when wearing glasses? Answer Date of Assessment Author Status No 04/08/2022 1:00 PM REEL REPAIRER Activ e * Do you have serious difficulty walking or climbing stairs? Answer Date of Assessment Author Status No 04/08/2022 1:00 PM Nerissa Guadarrama RN Active * Do you have difficulty dressing or bathing? Answer Date of Assessment Author Status No 04/08/2022 1:00 PM Nerissa Guadarrama RN Active * Because of a physical, mental, or emotional condition, do you have difficulty doing errands alone such as visiting a doctor's office or shopping? Answer Date of Assessment Author Status No 04/08/2022 1:00 PM Nerissa Guadarrama RN Active documented as of this encounter Mental Status * Because of a physical, mental, or emotional condition, do you have serious difficulty concentrating, remembering, or making decisions? Answer Entry Date Author Status No 04/08/2022 1:00 PM Nerissa Guadarrama RN Active documented in this encounter Plan of Treatment Upcoming Encounters Date Type Department Care Team (Late st Contact Info) Description 06/26/2024 9:00 AM REEL REPAIRER Office Visit [facility] [place] [phone] Hung Jiménez MD [address] [place] [address] documented as of this encounter Goals Goal Patient Goal Type Associated Problems Recent Progress Patient-Stated? Author Patient will return to prior living situation and remain independent in ADLs upon discharge from hospital General No Mildred Spencer RN documented as of this encounter Visit Diagnoses Not on filedocumented in this encounter Care Teams Rn Allergy Relationship Specialty Start Date End Date Chester Goodwin MD [address] [place] [address] PCP - General INTERNAL MEDICINE 03/29/16 Nikhil Davis MD [address] [place] [address] [place] [address] Cosmetic Consultant CARDIOVASCULAR DISEASE 06/05/18 12/05/23 Baron Harris MD [address] [place] [address] Consulting Physician ORTHOPAEDIC SURGERY 02/10/22 Hung Jiménez MD [address] [place] [address] INTERVENTIONAL CARDIOLOGY 12/06/23 documented as of this encounter
--- OUTSIDE RECORDS SUMMARY | 2024-06-03 18:51 | XMS_ITS | Encounter Summary ---
Author Organization [facility] Address [address] [place] [address] Care Team Providers Care Smoking Pipe Repairer Name Role Phone Chester Goodwin MD Primary Care Provider [phone] Nikhil Davis MD Unavailable Unavailabl e Baron Harris MD Unavailable [phone] Hung Jiménez MD Unavailable [phone] Encounter Details Date Type Department Care Team (Late Contact Info) Description 07/25/2018 Abstract [facility] [address] [place] [phone] Abstract, Doc [facility] Social History Tobacco Use Types Packs/Day Years [...] Upcoming Encounters Date Type Department Care Team ([facility] Contact Info) Description 06/26/2024 9:00 AM CASINO CHANGE ATTENDANT Office Visit [facility] [place] [phone] Hung Jiménez MD [address] [place], [place] [address] documented as of this encounter Visit Diagnoses Not on filedocumented in this encounter Additional Health Concerns Infection Onset Date Last Indicated Resolved Time COVID-19 Rule Out 06/11/2021 06/11/2021 06/11/2021 8:31 PM CASINO CHANGE ATTENDANT COVID-19 Rule Out 04/06/2022 04/07/2022 04/07/2022 8:38 AM CASINO CHANGE ATTENDANT documented as of this encounter Care Teams Smoking Pipe Repairer Relationship Specialty Start Date End Date Chester Goodwin MD [address] [place] [phone] PCP - General INTERNAL MEDICINE 03/29/16 Nikhil Davis MD [address] [place] [phone] Murch[place] Courtesy Driver CARDIOVASCULAR DISEASE 06/05/18 12/05/23 Baron Harris MD [address] [place] [address] Consulting Physician ORTHOPAEDIC SURGERY 02/10/22 Hung Jiménez MD [address] [place] [address] INTERVENTIONAL CARDIOLOGY 12/06/23 documented as of this encounter
--- OUTSIDE RECORDS SUMMARY | 2024-06-03 18:51 | XMS_ITS | Clinical Summary ---
Author Organization [facility] Address [address] [place] [address] Care Team Providers Care Physical Education Teacher Name Role Phone Chester Goodwin MD Primary Care Provider [phone] Baron Harris MD Unavailable [phone] Hung Jiménez MD Unavailable [phone] Allergies Active Allergy Reactions Criticality Noted Date Comments Spironolactone Other (see comment) 03/29/2016 Gynecomastia Medications Multiple Vitamins-Mineral s (CENTRUM SILVER ULTRA MENS) TabIndications:S upplement Take 1 tablet by mouth daily. Indications: Supplement 5 Active losartan 100 MG tabletIndication s:treat high blood pressure Take 1 tablet (100 mg total) by mouth daily. Indications: treat high blood pressure 5 Active Cholecalciferol (VITAMIN D3) 1000 UNIT TabIndications:s upplement Take 1 tablet (25 mcg total) by mouth daily. Indications: supplement 5 Active cetirizine 10 MG tabletIndication s:treat allergic rhinitis, dermatitis, and urticaria Take 0.5 tablets (5 mg total) by mouth nightly. Indications: treat allergic rhinitis, dermatitis, and urticaria Active pravastatin 10 MG tabletIndication s:treat high cholesterol Take 1 tablet (10 mg total) by mouth nightly at bedtime. Indications: treat high cholesterol 1 8 Active LORazepam 1 MG tabletIndication s:Anxiety Take 1 tablet (1 mg total) by mouth every 8 (eight) hours as needed for Anxiety. Indications: Anxiety Active metFORMIN ER 500 MG 24 hr tabletIndication s:treatment of type 2 diabetes Take 2 tablets (1,000 mg total) by mouth nightly. Indications: treatment of type 2 diabetes 2 Active aspirin EC 81 MG tabletIndication s:hold Take 1 tablet (81 mg total) by mouth daily. Indications: hold Once completed with twice a day may resume home dose of once a day 81mg 28 tablet 2 Active potassium chloride CR (KLOR-CON M) 10 MEQ tabletIndication s:Supplement Take 2 tablets (20 mEq total) by mouth daily. Indications: Supplement 60 tablet 3 Active amoxicillin (AMOXIL) 500 MG capsule Take 4 capsules (2,000 mg total) by mouth once. 3 Active cloNIDine (CATAPRES) 0.1 MG tablet Take 1 tablet (0.1 mg total) by mouth daily. 90 tablet 3 4 Active amLODIPine (NORVASC) 10 MG tablet TAKE 1 TABLET BY MOUTH DAILY FOR HYPERTENSION 90 tablet 3 4 Active doxazosin (CARDURA) 8 MG tablet Take 1 tablet (8 mg total) by mouth nightly at bedtime. 90 tablet 2 4 Active carvedilol (COREG) 12.5 MG tablet TAKE 1 TABLET BY MOUTH TWICE DAILY 180 tablet 3 4 Active eplerenone (INSPRA) 25 MG tabletIndication s:Primary hypertension Take 1 tablet (25 mg total) by mouth daily. 90 tablet 1 4 Active Active Problems Problem Noted Date Diagnosed Date Aortic stenosis 05/20/2022 Sepsis ([facility] 04/06/2022 Paroxysmal atrial fibrillation ([facility]) 03/24/2022 Hyperlipidemia, unspecified hyperlipidemia type 11/20/2020 Bilateral carotid artery disease 08/17/2018 Other hemochromatosis 08/17/2018 HTN (hypertension) Prostate cancer ([facility]) Overview (07/27/2018): with radiation GERD (gastroesophageal reflux disease) Borderline diabetic Resolved Problems Problem Noted Date Diagnosed Date Resolved Date Follow-up examination after orthopedic surgery 12/03/2021 06/13/2022 Aftercare following left kne e joint replacement surgery 09/03/2021 12/03/2021 Status post total left knee replacement 06/15/2021 12/03/2021 Primary osteoarthritis of left knee 05/11/2021 12/03/2021 Encounters Date Type Department Care Team Description 04/22/2024 Abstract [facility] [address] [place] [address] Abstract, Doc [facility] 04/22/2024 Telephone [facility] [address] [place] [address] Georgiana Castro, DUMP GROUNDS CHECKER, FILM CREW MEMBER-C Refill Request from Last 3 Months Family History Medical History Relation Comments Cancer Father Stroke Maternal Grandmother No Known Problems Mother Coronary artery disease Neg Hx No vimal ture coronary artery disease. Relation Status Comments Father (Age 87) Maternal Grandmother (Age 52) of [place] Mother (Age 87) Social History Tobacco Use Types Packs/Day Years Used Date Smoking Tobacco: Former Cigarettes Smokeless Tobacco: Never Tobacco Cessation:Counseling Given: Not Answered Comments:Years ago Alcohol Use Standard Drinks/Week Comments No 0 (1 standard drink = 0.6 oz pur e alcohol) OASIS D0700: Social Isolation Answer Da te Recorded Frequency of experiencing loneliness or isolatio n Never 06/11/2022 OASIS A1250: Transportation Answer Date Recorded Lack of Transportation (Medical) Yes 06/11/2022 Lack of Transportation (Non-Medical) No 06/11/2022 Patient Unable or Declines to Respond No 06/11/2022 OASIS B1300: Health Literacy Answer Augusto e Recorded Frequency of needing help to read materials from doctor or pharmacy Rarely 06/11/2022 Sex and Gender Information Value Date Recorded Sex Assigned at Not on file Legal Sex Male 3:47 AM CDT Gender Identity Not on file Sexual Orientation Not on file Occupation Industry Job Start Date Job End Date Retired Not on file Not on file Not on file Last Filed Vital Signs Vital Sign Reading Time Taken Comments Blood Pressure 110/50 06/22/2023 1:27 PM ARC FURNACE OPERATOR Pulse 54 06/22/2023 1:27 PM ARC FURNACE OPERATOR Temperature 36.3 C (97.3 F) 06/11/2022 9:50 AM ARC FURNACE OPERATOR Respiratory Rate 16 06/22/2023 1:27 PM ARC FURNACE OPERATOR Oxygen Saturation 96% 06/22/2023 1:27 PM ARC FURNACE OPERATOR Inhaled Oxygen Concentration - - Weight 126.6 kg (279 lb 3.2 oz) 06/22/2023 1:27 PM ARC FURNACE OPERATOR Height 175.3 cm (5' 9 ) 06/22/2023 1:27 PM ARC FURNACE OPERATOR Body Mass Index 41.23 06/22/2023 1:27 PM ARC FURNACE OPERATOR Plan of Treatment Upcoming Encounters Date Type Department Care Team (Late st Contact Info) Description 06/26/2024 9:00 AM ARC FURNACE OPERATOR Office Visit [facility] [place] [address] Hung Jiménez MD [address] [place] [address] Health Maintenance Due Date Last Done Comments Hepatitis C 1963 DTaP, Tdap and Td Vaccines (1 - Tdap) 1965 Zoster Vaccines (1 of 2) 1996 Annual Medicare Wellness Visit 2011 Pneumococcal Vaccine: 65+ Years (2 of 2 - PPSV23 or PCV20) 09/29/2015 08/04/2015 RSV Immunization or 60+ Years (1 - 1-dose 75+ series) 2021 COVID-19 Vaccine ( - season) 2023 02/04/2021, 07/03/2020, 06/12/2020 Influenza Adult (#1) 2024 03/22/2021, 02/07/2020, 02/20/2019, Additional history exists Meningococcal B Vaccine Aged Out No l onger eligible based on patient's age to complete this topic Meningococcal Vaccine Aged Out No vandana moose eligible based on patient's age to complete this topic RSV Immunizations Under 20 Months Aged Out No longer eligible based on patient's age to complete this topic Goals Goal Patient Goal Type Associated Problems Recent Progress Patient-Stated? Author Patient will return to prior living situation and remain independent in ADLs upon discharge from hospital General Mildred Ariza RN Medical Devices Implanted Type Area Sales Outfitter Device Identifier Shelf Expiration Date Model / Serial / Lot Cement Simplex Hv W/Gentamicin - [id number] Implanted:Qty : 1 on 06/14/2021 by Denis Alanis MD at [facility] Cement Implant Left: Knee [employer] - DIV JAMIN JANUSZ 07/22/2022 [id number] / / [id number] Cement Simplex Hv W/Gentamicin - [id number] Implanted:Qty : 1 on 06/14/2021 by Denis Alanis MD at [facility] Cement Implant Left: Knee [employer] JANUSZ 07/22/2022 6195-1-010 / / [id number] Baseplate Tibial Attune 7 Knee Cement Rotate Platform Sterile - [id number] Implanted:Qty : 1 on 06/14/2021 by Denis Alanis MD at [facility] Knee Components Left: Knee DEPUY [id number] 01/21/2031 [id number] / / [id number] Component Ptlr 38mm Medialize Dome Attune Kn - [id number] Implanted:Qty : 1 on 06/14/2021 by Denis Alanis MD at [facility] Patella Left: Knee [employer] - A BLUE [employer] BLUE [id number] 04/23/2026 [id number] / / [id number] Attune Femoral Cruciate Retaining Size 6 Cemented Implanted:Qty : 1 on 06/14/2021 by Denis Alanis MD at [facility] Left: Knee DEPUY [id number] 01/21/2031 [id number] / / [id number] Attune Tibial Insert Rotating Platform Cruciate Retaining Size 6 14mm Implanted:Qty : 1 on 06/14/2021 by Denis Alanis MD at [facility] Left: Knee DEPUY [id number] 05/24/2025 [id number] / / [id number] Spacer, 16mm Implanted:Qty : 1 on 03/21/2022 by Baron Harris MD at [facility] N/A: Spine Lumbar [employer] 03/23/2024 [id number] / / [id number] Explanted Type Area Sales Outfitter Device Identifier Shelf Expiration Date Model / Serial / Lot Drill Bit Synthes 2.5 Qc 110mm Gold - [id number] Explanted:Qty: 1 on 06/14/2021 at [facility] Drill Left: Knee [employer] - A 5app CO 310.25 / / Insurance MEDICARE MEDICARE AET Advance Directives * Full Code (Latest Code Status on File) Date Activated Date Inactivated Comments 04/13/2022 11:54 PM * Full Code Date Activated Date Inactivated Comments 04/06/2022 9:25 AM 04/13/2022 3:39 PM * Full Code Date Activated Date Inactivated Comments 06/14/2021 7:29 PM 06/15/2021 4:44 PM Care Teams Physical Education Teacher Relationship Specialty Start Date End Date Chester Goodwin MD [address] [place] [phone] PCP - General INTERNAL MEDICINE 03/29/16 Baron Harris MD [address] [place], [place] [phone] Consulting Physician ORTHOPAEDIC SURGERY 02/10/22 Hung Jiménez MD [address] [place] [address] INTERVENTIONAL CARDIOLOGY 12/06/23
--- OUTSIDE RECORDS SUMMARY | 2024-06-03 18:51 | XMS_ITS | Encounter Summary ---
Author Organization [facility] Address [address] [place] [address] Care Team Providers Care Activities Assistant Name Role Phone Chester Goodwin MD Primary Care Provider Jareth Michel MD Unavailable Unavailab Nikhil Lincoln MD Unavailable Unavailabl Baron Woods MD Unavailable [phone] Hung Jiménez MD Unavailable [phone] Encounter Details Date Type Department Care Team (Late Contact Info) Description 07/22/2015 Abstract [facility] [address] [place] [address] Kalpana Velasquez NP [address] [place] [address] Social History Tobacco Use Types Packs/Day Years [...] (Late Contact Info) Description 06/26/2024 9:00 AM GEOPHYSICAL ENGINEER Office Visit [facility] [place] [phone] Hung Jiménez MD [address] [place], [place] [address] documented as of this encounter Visit Diagnoses Not on filedocumented in this encounter Additional Health Concerns Infection Onset Date Last Indicated Resolved Time COVID-19 Rule Out 06/11/2021 06/11/2021 06/11/2021 8:31 PM GEOPHYSICAL ENGINEER COVID-19 Rule Out 04/06/2022 04/07/2022 04/07/2022 8:38 AM GEOPHYSICAL ENGINEER documented as of this encounter Care Teams Activities Assistant Relationship Specialty Start Date End Date Chester Goodwin MD [address] [place] [phone] PCP - General INTERNAL MEDICINE 03/29/16 Jareth Michel MD [address] [place] [phone] [facility] Service Coordinator CARDIOVASCULAR DISEASE 10/21/16 06/04/18 Nikhil Davis MD [address] [place] [address] [facility] Medical Service Coordinator CARDIOVASCULAR DISEASE 06/05/18 12/05/23 Baron Harris MD [address] [place] [address] Consulting Physician ORTHOPAEDIC SURGERY 02/10/22 Hung Jiménez MD [address] [place], [place] [address] INTERVENTIONAL CARDIOLOGY 12/06/23 documented as of this encounter
--- OUTSIDE RECORDS SUMMARY | 2024-06-03 18:51 | XMS_ITS | Encounter Summary ---
Author Organization [facility] Address [address] [place] [address] Care Team Providers Care Poultry Buyer Name Role Phone Chester Goodwin MD Primary Care Provider [phone] Nikhil Davis MD Unavailable Unavailabl e Baron Harris MD Unavailable [phone] Hung Jiménez MD Unavailable [phone] Encounter Details Date Type Department Care Team (Late st Contact Info) Description 03/07/2023 [employer] Message Enc [facility] eld [address] [place] [address] Georgiana Castro, CHIEF PETROLEUM ENGINEER, SHEAR OPERATOR HELPER-C [address] [facility] [address] [place] [address] Forms Social History Tobacco Use Types Packs/Day Years [...] on file documented as of this encounter Functional Status * RETIRED Are you deaf or do you have serious difficulty hearing Answer Date of Assessment Author Status No 04/08/2022 1:00 PM WINTER SPORTS MANAGER Activ e * RETIRED Are you blind or do you have serious difficulty seeing, even when wearing glasses? Answer Date of Assessment Author Status No 04/08/2022 1:00 PM WINTER SPORTS MANAGER Activ e * Do you have serious [...] st Contact Info) Description 06/26/2024 9:00 AM WINTER SPORTS MANAGER Office Visit [facility] [place] [address] Hung Jiménez MD [address] [place] [address] documented as of this encounter Goals Goal Patient Goal Type Associated Problems Recent Progress Patient-Stated? Author Patient will return to prior living situation and remain independent in ADLs upon discharge from hospital General No Mildred Spencer, RN documented as of this encounter Visit Diagnoses Not on filedocumented in this encounter Care Teams Poultry Buyer Relationship Specialty Start Date End Date Chester Goodwin MD [address] [place] [phone] PCP - General INTERNAL MEDICINE 03/29/16 Nikhil Davis MD [address] [place] [address] [place] Tank Car Repairer CARDIOVASCULAR DISEASE 06/05/18 12/05/23 Baron Harris MD [address] [place] [address] Consulting Physician ORTHOPAEDIC SURGERY 02/10/22 Hung Jiménez MD [address] [place] [address] INTERVENTIONAL CARDIOLOGY 12/06/23 documented as of this encounter
--- OUTSIDE RECORDS SUMMARY | 2024-06-03 18:51 | XMS_ITS | Encounter Summary ---
Author Organization [facility] Address [address] [place] [address] Care Team Providers Care Paving Machine Operator Name Role Phone Chester Goodwin MD Primary Care Provider [phone] Jareth Michel MD Unavailable Unavailab Nikhil Lincoln MD Unavailable UnavailBaron Shetty MD Unavailable [phone] Hung Jiménez MD Unavailable [phone] Encounter Details Date Type Department Care Team (Late Contact Info) Description 10/11/2016 Abstract [facility] [address] [place] [address] Jareth Michel MD Social History Tobacco Use Types Packs/Day Years [...] (Late Contact Info) Description 06/26/2024 9:00 AM FIRE TRUCK DRIVER Office [facility] [place] [address] Hung Jiménez MD [address] [place], [place] [address] documented as of this encounter Visit Diagnoses Not on filedocumented in this encounter Additional Health Concerns Infection Onset Date Last Indicated Resolved Time COVID-19 Rule Out 06/11/2021 06/11/2021 06/11/2021 8:31 PM FIRE TRUCK DRIVER COVID-19 Rule Out 04/06/2022 04/07/2022 04/07/2022 8:38 AM FIRE TRUCK DRIVER documented as of this encounter Care Teams Paving Machine Operator Relationship Specialty Start Date End Date Chester Goodwin MD [address] [place] [phone] PCP - General INTERNAL MEDICINE 03/29/16 Jareth Michel MD [address] [place] [address] [place] Resident Services Manager CARDIOVASCULAR DISEASE 10/21/16 06/04/18 Nikhil Davis MD [address] [place] [address] [place] Resident Services Manager CARDIOVASCULAR DISEASE 06/05/18 12/05/23 Baron Harris MD [address] [place] [address] Consulting Physician ORTHOPAEDIC SURGERY 02/10/22 Hung [place] [address] INTERVENTIONAL CARDIOLOGY 12/06/23 documented as of this encounter
--- OUTSIDE RECORDS SUMMARY | 2024-06-03 18:51 | XMS_ITS | Encounter Summary ---
Author Organization [facility] Address [address] [place] [address] Care Team Providers Care Machine Engineer Name Role Phone Chester Goodwin MD Primary Care Provider [phone] Nikhil Davis MD Unavailable Unavailabl e Baron Harris MD Unavailable [phone] Hung Jiménez MD Unavailable [phone] Encounter Details Date Type Department Care Team (Late st Contact Info) Description 01/06/2023 Abstract [facility] [address] [place] [address] Nikhil Davis MD Social History Tobacco Use Types Packs/Day [...] Assessment Author Status No 04/08/2022 1:00 PM TECHNICAL MAINTENANCE SPECIALIST Activ e * RETIRED Are you blind or do you have serious difficulty seeing, even when wearing glasses? Answer Date of Assessment Author Status No 04/08/2022 1:00 PM TECHNICAL MAINTENANCE SPECIALIST Activ e * Do you have serious [...] st Contact Info) Description 06/26/2024 9:00 AM TECHNICAL MAINTENANCE SPECIALIST Office Visit [facility] [place] [address] Hung Jiménez MD [address] [place] [address] documented as of this encounter Goals Goal Patient Goal Type Associated Problems Recent Progress Patient-Stated? Author Patient will return to prior living situation and remain independent in ADLs upon discharge from hospital General Mildred Ariza RN documented as of this encounter Procedures Procedure Name Priority Date/Time Associated Diagnosis Comments CMP (ABSTRACTED LAB) Routine 01/06/2023 CBC (OUTSIDE LAB) Routine 01/06/2023 HEMOGLOBIN, GLYCOSYLATED Routine 01/06/2023 LIPID PANEL Routine 01/06/2023 documented in this encounter Results * CBC (OUTSIDE LAB) (01/06/2023) WBC 6.7 4.8 - 10.8 HGB 12.9 12.4 - 15.3 HCT 38.0 37.0 - 46.0 PLT 207 150 - 420 RBC 4.18 4.70 - 6.10 MCV 90.9 78.0 - 102.0 MCH 30.9 27.0 - 31.0 MCHC 33.9 32.0 - 36.0 RDW 13.1 11.6 - 14.4 MPV 10.6 8.7 - 11.0 NRBC % 0.0 0 - 0.0 IMMATURE GRANS % 0.1 0.0 - 0.0 NEUTROPHILS % 51.8 50.0 - 70.0 LYMPHOCYTES % 30.2 18.0 - 42.0 MONOCYTES % 7.3 2.0 - 11.0 EOSINOPHILS % 9.9 1.0 - 6.0 BASOPHILS % 0.7 0.0 - 1.0 NRBC 0.00 0.00 - 0.00 ABS. IMMATURE GRANULOCYTES 0.01 0.00 - 0.00 # NEUTROPHILS 3.5 1.7 - 7.2 ABS. LYMPHOCYTES 2.02 1.10 - 4.50 ABS. MONOCYTES 0.49 0.10 - 0.90 ABS. EOSINOPHILS 0.66 0.02 - 0.50 ABS. BASOPHILS 0.05 0.00 - 0.10 01/06/2023 us Chester Goodwin MD LAB-OUTSIDE/ABSTRACTED Final Result * HEMOGLOBIN, GLYCOSYLATED (01/06/2023) HGB A1C 6.6 <5.7 % 01/06/2023 us Chester Goodwin MD LABORATORY Final Result * LIPID PANEL (01/06/2023) CHOLESTEROL 153 0 - 200 HDL 48 40 - 60 TRIGLYCERIDES 189 0 - 150 LDL (CALCULATED) 67 01/06/2023 Chester Goodwin MD LABORATORY Final Result * CMP (ABSTRACTED LAB) (01/06/2023) SODIUM S/P/B 140 136 - 145 POTASSIUM S/P/B 4.2 3.5 - 5.1 CHLORIDE S/P/B 106 98 - 108 CO2 28 21 - 32 BUN 27 7 - 18 CREATININE S/P/B 1.15 0.7 - 1.3 EGFR NON-AFR. AMER. >60 <=90 CALCIUM S/P/B 8.9 8.5 - 10.1 GLUCOSE 109 70 - 99 mg/dL TOTAL PROTEIN S/P/B 6.6 6.4 - 8.2 ALBUMIN S/P/B 3.6 3.5 - 5.0 AST 22 15 - 37 ALT 17 16 - 63 ALKALINE PHOSPHATASE S/P/B 119 46 - 116 BILIRUBIN TOTAL S/P/B 0.9 0.00 - 1.00 01/06/2023 Chester Goodwin MD LAB-OUTSIDE/ABSTRACTED Final Result documented in this encounter Visit Diagnoses Not on filedocumented in this encounter Care Teams Machine Engineer Relationship Specialty Start Date End Date Chester Goodwin MD [address] [place] [address] PCP - General INTERNAL MEDICINE 03/29/16 Nikhil Davis MD [address] [place] [address] [place] Mixer Operator CARDIOVASCULAR DISEASE 06/05/18 12/05/23 Baron Harris MD [facility] [place] [address] Consulting Physician ORTHOPAEDIC SURGERY 02/10/22 Hung Jiménez MD [address] [place] [address] INTERVENTIONAL CARDIOLOGY 12/06/23 documented as of this encounter
[2024-06-03 18:58] VITALS: BP 176/67; PULSE 68; RESP 20; TEMP 36.7; O2SAT 94
--- NOTE | 2024-06-03 19:03 | PC.NURSE ---
Covid culture sent to lab
[2024-06-03 19:06] VITALS: O2SAT 94
--- OUTSIDE RECORDS SUMMARY | 2024-06-03 19:34 | XMS_ITS | Encounter Summary ---
Author Organization [facility] Address [address] [place] [address] Care Team Providers Care Senior Tableau Developer Name Role Phone Chester Goodwin MD Primary Care Provider [phone] Nikhil Davis MD Unavailable Unavailabl e Baron Harris MD Unavailable [phone] Hung Jiménez MD Unavailable [phone] Encounter Details Date Type Department Care Team (Late st Contact Info) Description 01/06/2023 Abstract [facility] [address] [place] [address] Nikhil Davis MD Social History Tobacco Use [...] Assessment Author Status No 04/08/2022 1:00 PM SHOT TUBE MACHINE TENDER Activ e * RETIRED Are you blind or do you have serious difficulty seeing, even when wearing glasses? Answer Date of Assessment Author Status No 04/08/2022 1:00 PM SHOT TUBE MACHINE TENDER Activ e * Do you have serious [...] st Contact Info) Description 06/26/2024 9:00 AM SHOT TUBE MACHINE TENDER Office Visit [facility] [place] [address] Hung Jiménez MD [address] [place] [address] documented as of this encounter Goals [...] on filedocumented in this encounter Care Teams Senior Tableau Developer Relationship Specialty Start Date End Date Chester Goodwin MD [address] [place] [address] PCP - General INTERNAL MEDICINE 03/29/16 Nikhil Davis MD [address] [place] [address] [place] Tinware Lithograph Press Operator CARDIOVASCULAR DISEASE 06/05/18 12/05/23 Baron Harris MD [facility] [place] [address] Consulting Physician ORTHOPAEDIC SURGERY 02/10/22 Hung Jiménez MD [address] [place] [address] INTERVENTIONAL CARDIOLOGY 12/06/23 documented as of this encounter
--- OUTSIDE RECORDS SUMMARY | 2024-06-03 19:34 | XMS_ITS | Encounter Summary ---
Author Organization [facility] Address [address] [place] [address] Care Team Providers Care Submarine Operator Name Role Phone Chester Goodwin MD Primary Care Provider [phone] Nikhil Davis MD Unavailable Unavailabl e Baron Harris MD Unavailable [phone] Hung Jiménez MD Unavailable [phone] Encounter Details Date Type Department Care Team (Late st Contact Info) Description 04/14/2022 Hospital Follow-up Call [facility] [address] [place] [address] Emilie Fournier RN Social History [...] Coronavirus/COVID-19? No / Unsure 04/08/2022 1:52 PM HOOK LOADER documented as of this encounter Functional Status * RETIRED Are you deaf or do you have serious difficulty hearing Answer Date of Assessment Author Status No 04/08/2022 1:00 PM HOOK LOADER Activ e * RETIRED Are you blind or do you have serious difficulty seeing, even when wearing glasses? Answer Date of Assessment Author Status No 04/08/2022 1:00 PM HOOK LOADER Activ e * Do you have serious [...] st Contact Info) Description 06/26/2024 9:00 AM HOOK LOADER Office Visit [facility] [place] [address] Hung Jiménez MD [address] [place] [address] documented as of this encounter Goals Goal Patient Goal Type Associated Problems Recent Progress Patient-Stated? Author Patient will return to prior living situation and remain independent in ADLs upon discharge from hospital General No Mildred Spencer RN documented as of this encounter Visit Diagnoses Not on filedocumented in this encounter Care Teams Submarine Operator Relationship Specialty Start Date End Date Chester Goodwin MD [address] [place] [address] PCP - General INTERNAL MEDICINE 03/29/16 Nikhil Davis MD [address] [place] [address] [place] [address] Bookbinder Apprentice CARDIOVASCULAR DISEASE 06/05/18 12/05/23 Baron Harris MD [address] [place] [address] Consulting Physician ORTHOPAEDIC SURGERY 02/10/22 Hung Jiménez MD [address] [place] [address] INTERVENTIONAL CARDIOLOGY 12/06/23 documented as of this encounter
--- OUTSIDE RECORDS SUMMARY | 2024-06-03 19:34 | XMS_ITS | Clinical Summary ---
Author Organization [facility] Address [address] [place] [address] Care Team Providers Care Manager Of Care Name Role Phone Chester Goodwin MD Primary Care Provider [phone] Baron Harris MD Unavailable [phone] Hung Jiménez MD Unavailable [phone] Allergies Active Allergy Reactions Criticality Noted [...] Date Diagnosed Date Aortic stenosis 05/20/2022 Sepsis ([facility]) 04/06/2022 Paroxysmal atrial fibrillation ([facility]) 03/24/2022 Hyperlipidemia, unspecified hyperlipidemia type 11/20/2020 Bilateral carotid artery disease 08/17/2018 Other hemochromatosis 08/17/2018 HTN (hypertension) Prostate cancer ([facility]) Overview (07/27/2018): with radiation GERD (gastroesophageal reflux [...] Abstract [facility] [address] [place] [address] Abstract, Doc [facility] 04/22/2024 Telephone [facility] [address] [place] [address] Georgiana Castro, TRUMPET PLAYER, INDUSTRIAL CONTROLS TECHNICIAN-C Refill Request from Last 3 Months Family [...] Comments Blood Pressure 110/50 06/22/2023 1:27 PM AMBULATORY SERVICE REPRESENTATIVE Pulse 54 06/22/2023 1:27 PM AMBULATORY SERVICE REPRESENTATIVE Temperature 36.3 C (97.3 F) 06/11/2022 9:50 AM AMBULATORY SERVICE REPRESENTATIVE Respiratory Rate 16 06/22/2023 1:27 PM AMBULATORY SERVICE REPRESENTATIVE Oxygen Saturation 96% 06/22/2023 1:27 PM AMBULATORY SERVICE REPRESENTATIVE Inhaled Oxygen Concentration - - Weight 126.6 kg (279 lb 3.2 oz) 06/22/2023 1:27 PM AMBULATORY SERVICE REPRESENTATIVE Height 175.3 cm (5' 9 ) 06/22/2023 1:27 PM AMBULATORY SERVICE REPRESENTATIVE Body Mass Index 41.23 06/22/2023 1:27 PM AMBULATORY SERVICE REPRESENTATIVE Plan of Treatment Upcoming Encounters Date Type Department Care Team (Late st Contact Info) Description 06/26/2024 9:00 AM AMBULATORY SERVICE REPRESENTATIVE Office Visit [facility] [place] [address] Hung Jiménez MD [address] [place] [address] Health Maintenance Due Date Last Done [...] Ariza RN Medical Devices Implanted Type Area Time Study Observer Device Identifier Shelf Expiration Date Model / Serial / Lot Cement Simplex Hv W/Gentamicin - [id number] Implanted:Qty : 1 on 06/14/2021 by Denis Alanis MD at [facility] Cement Implant Left: Knee [employer] - DIV JAMIN JANUSZ 07/22/2022 6195-1-010 / / [id number] Cement Simplex Hv W/Gentamicin - [id number] Implanted:Qty : 1 on 06/14/2021 by Denis Alanis MD at [facility] Cement Implant Left: Knee [employer] JANUSZ 07/22/2022 6195-1-010 / / [id number] Baseplate Tibial Attune 7 Knee Cement Rotate Platform Sterile - [id number] Implanted:Qty : 1 on 06/14/2021 by Denis Alanis MD at [facility] Knee Components Left: Knee DEPUY [id number] 01/21/2031 [id number] / / [id number] Component Ptlr 38mm Medialize Dome Attune Kn - [id number] Implanted:Qty : 1 on 06/14/2021 by Denis Alanis MD at [facility] Patella Left: Knee [employer] - A BLUE [employer] BLUE [id number] 04/23/2026 [id number] / / [id number] Attune Femoral Cruciate Retaining Size 6 Cemented Implanted:Qty : 1 on 06/14/2021 by Denis Alanis MD at [facility] Left: Knee DEPUY [id number] 01/21/2031 [id number] / / [id number] Attune Tibial Insert Rotating Platform Cruciate Retaining Size 6 14mm Implanted:Qty : 1 on 06/14/2021 by Denis Alanis MD at [facility] Left: Knee DEPUY [id number] 05/24/2025 [id number] / / [id number] Spacer, 16mm Implanted:Qty : 1 on 03/21/2022 by Baron Harris MD at [facility] N/A: Spine Lumbar [employer]INE 03/23/2024 [id number] / / [id number] Explanted Type Area Time Study Observer Device Identifier Shelf Expiration Date Model / Serial / Lot Drill Bit Synthes 2.5 Qc 110mm Gold - [id number] Explanted:Qty: 1 on 06/14/2021 at [facility] Drill Left: Knee [employer] - A [employer] 310.25 / / Insurance MEDICARE MEDICARE AET Advance Directives * Full Code (Latest Code Status on File) Date Activated Date Inactivated Comments 04/13/2022 11:54 PM * Full Code Date Activated Date Inactivated Comments 04/06/2022 9:25 AM 04/13/2022 3:39 PM * Full Code Date Activated Date Inactivated Comments 06/14/2021 7:29 PM 06/15/2021 4:44 PM Care Teams Manager Of Care Relationship Specialty Start Date End Date Chester Goodwin MD [address] [place] [phone] PCP - General INTERNAL MEDICINE 03/29/16 Baron Harris MD [address] [place], [place] [address] Consulting Physician ORTHOPAEDIC SURGERY 02/10/22 Hung Jiménez MD [address] [place] [address] INTERVENTIONAL CARDIOLOGY 12/06/23
--- OUTSIDE RECORDS SUMMARY | 2024-06-03 19:34 | XMS_ITS | Encounter Summary ---
Author Organization [facility] Address [address] [place] [address] Care Team Providers Care Airport Ramp Agent Name Role Phone Chester Goodwin MD Primary Care Provider [phone] Jareth Michel MD Unavailable Unavailab Nikhil Lincoln MD Unavailable Unavailabl Baron Woods MD Unavailable [phone] Hung Jiménez MD Unavailable [phone] Encounter Details Date Type Department Care Team (Late Contact Info) Description 07/22/2015 Abstract [facility] [address] [place] [address] Kalpana Velasquez NP [address] [place] [address] Social History Tobacco Use Types [...] (Late Contact Info) Description 06/26/2024 9:00 AM MOBILE DEVICE ENGINEER Office Visit [facility] [place] [address] Hung Jiménez MD [address] [place], [place] [address] documented as of this encounter Visit Diagnoses Not on filedocumented in this encounter Additional Health Concerns Infection Onset Date Last Indicated Resolved Time COVID-19 Rule Out 06/11/2021 06/11/2021 06/11/2021 8:31 PM MOBILE DEVICE ENGINEER COVID-19 Rule Out 04/06/2022 04/07/2022 04/07/2022 8:38 AM MOBILE DEVICE ENGINEER documented as of this encounter Care Teams Airport Ramp Agent Relationship Specialty Start Date End Date Chester Goodwin MD [address] [place] [phone] PCP - General INTERNAL MEDICINE 03/29/16 Jareth Michel MD [address] [place] [address] [place] Market Master CARDIOVASCULAR DISEASE 10/21/16 06/04/18 Nikhil Davis MD [address] [place] [address] [place] Market Master CARDIOVASCULAR DISEASE 06/05/18 12/05/23 Baron Harris MD [address] [place] [address] Consulting Physician ORTHOPAEDIC SURGERY 02/10/22 Hung Jiménez MD [address] [place], [place] [address] INTERVENTIONAL CARDIOLOGY 12/06/23 documented as of this encounter
--- OUTSIDE RECORDS SUMMARY | 2024-06-03 19:34 | XMS_ITS | CONTINUITY OF CARE DOCUMENT ---
Author Name popeye nye Address Unknown Organization [facility] Address [address] [facility] [address] [place] [address] Phone [phone] Care Team Providers Care Sewing Machines Salesperson Name Role Phone Thomas DURBIN, Krystina Unavailable INSURANCE PROVIDERS Payer name Policy type / Coverage type [place]ises red constitution party ID [employer] Commercial insurance co premier health [id number] [place] MEDIC[employer] Medicare [id number]
--- OUTSIDE RECORDS SUMMARY | 2024-06-03 19:34 | XMS_ITS | Encounter Summary ---
Author Organization [facility] Address [address] [place] [address] Care Team Providers Care Financial Writer Name Role Phone Chester Goodwin MD Primary Care Provider [phone] Jareth Michel MD Unavailable Unavailab Nikhil Lincoln MD Unavailable UnavailBaron Shetty MD Unavailable [phone] Hung Jiménez MD Unavailable [phone] Encounter Details Date Type Department Care Team (Late Contact Info) Description 03/29/2016 Abstract [facility] [address] [place] [address] Dana Brown, RN Social History Tobacco Use [...] (Late Contact Info) Description 06/26/2024 9:00 AM AERIAL CROP DUSTER Office Visit [facility] [place] [address] Hung Jiménez MD [address] [place], [place] [address] documented as of this encounter Visit Diagnoses Not on filedocumented in this encounter Additional Health Concerns Infection Onset Date Last Indicated Resolved Time COVID-19 Rule Out 06/11/2021 06/11/2021 06/11/2021 8:31 PM AERIAL CROP DUSTER COVID-19 Rule Out 04/06/2022 04/07/2022 04/07/2022 8:38 AM AERIAL CROP DUSTER documented as of this encounter Care Teams Financial Writer Relationship Specialty Start Date End Date Chester Goodwin MD [address] [place] [address] PCP - General INTERNAL MEDICINE 03/29/16 Jareth Michel MD [address] [place] [address] [place] Aeronautical Project Engineer CARDIOVASCULAR DISEASE 10/21/16 06/04/18 Nikhil Davis MD [address] [place] [address] [place] Aeronautical Project Engineer CARDIOVASCULAR DISEASE 06/05/18 12/05/23 Baron Harris MD [address] [place] [address] Consulting Physician ORTHOPAEDIC SURGERY 02/10/22 Hung Jiménez MD [address] [place] [address] INTERVENTIONAL CARDIOLOGY 12/06/23 documented as of this encounter
--- OUTSIDE RECORDS SUMMARY | 2024-06-03 19:34 | XMS_ITS | Encounter Summary ---
Author Organization [facility] Address [address] [place] [address] Care Team Providers Care Speech Correction Consultant Name Role Phone Chester Goodwin MD Primary Care Provider [phone] Jareth Michel MD Unavailable Unavailab Nikhil Lincoln MD Unavailable UnavailBaron Shetty MD Unavailable [phone] Hung Jiménez MD Unavailable [phone] Encounter Details Date Type Department Care Team (Late Contact Info) Description 10/11/2016 Abstract [facility] [address] [place] [address] Jareth Michel MD Social History Tobacco Use [...] (Late Contact Info) Description 06/26/2024 9:00 AM CAR BUILDER Office Visit [facility] [place] [address] Hung Jiménez MD [address] [place], [place] [address] documented as of this encounter Visit Diagnoses Not on filedocumented in this encounter Additional Health Concerns Infection Onset Date Last Indicated Resolved Time COVID-19 Rule Out 06/11/2021 06/11/2021 06/11/2021 8:31 PM CAR BUILDER COVID-19 Rule Out 04/06/2022 04/07/2022 04/07/2022 8:38 AM CAR BUILDER documented as of this encounter Care Teams Speech Correction Consultant Relationship Specialty Start Date End Date Chester Goodwin MD [address] [place] [phone] PCP - General INTERNAL MEDICINE 03/29/16 Jareth Michel MD [address] [place] [phone] [place] Bowling Ball Weigher And Packer CARDIOVASCULAR DISEASE 10/21/16 06/04/18 Nikhil Davis MD [address] [place] [address] [place] Bowling Ball Weigher And Packer CARDIOVASCULAR DISEASE 06/05/18 12/05/23 Baron Harris MD [address] [place] [address] Consulting Physician ORTHOPAEDIC SURGERY 02/10/22 Hung Jiménez MD [address] [place] [address] INTERVENTIONAL CARDIOLOGY 12/06/23 documented as of this encounter
--- OUTSIDE RECORDS SUMMARY | 2024-06-03 19:34 | XMS_ITS | Encounter Summary ---
Author Organization [facility] Address [address] [place] [address] Care Team Providers Care Pin Chaser Name Role Phone Chester Goodwin MD Primary Care Provider [phone] Nikhil Davis MD Unavailable Unavailabl e Baron Harris MD Unavailable [phone] Hung Jiménez MD Unavailable [phone] Encounter Details Date Type Department Care Team (Late Contact Info) Description 07/25/2018 Abstract [facility] [address] [place] [phone] Abstract, Doc Prevea Social History Tobacco Use [...] Upcoming Encounters Date Type Department Care Team ([facility] Contact Info) Description 06/26/2024 9:00 AM QUARTZ CUTTER Office Visit [facility] [place] [phone] Hung Jiménez MD [address] [place], [place] [address] documented as of this encounter Visit Diagnoses Not on filedocumented in this encounter Additional Health Concerns Infection Onset Date Last Indicated Resolved Time COVID-19 Rule Out 06/11/2021 06/11/2021 06/11/2021 8:31 PM QUARTZ CUTTER COVID-19 Rule Out 04/06/2022 04/07/2022 04/07/2022 8:38 AM QUARTZ CUTTER documented as of this encounter Care Teams Pin Chaser Relationship Specialty Start Date End Date Chester Goodwin MD [address] [place] [phone] PCP - General INTERNAL MEDICINE 03/29/16 Nikhil Davis MD [address] [place] [phone] [employer] Engineer CARDIOVASCULAR DISEASE 06/05/18 12/05/23 Baron Harris MD [address] [place] [address] Consulting Physician ORTHOPAEDIC SURGERY 02/10/22 Hung Jiméenz MD [address] [place] [address] INTERVENTIONAL CARDIOLOGY 12/06/23 documented as of this encounter
--- OUTSIDE RECORDS SUMMARY | 2024-06-03 19:34 | XMS_ITS | Encounter Summary ---
Author Organization [facility] Address [address] [place] [address] Care Team Providers Care Bingo Cashier Name Role Phone Chester Goodwin MD Primary Care Provider [phone] Nikhil Davis MD Unavailable Unavailabl e Baron Harris MD Unavailable [phone] Hung Jiménez MD Unavailable [phone] Encounter Details Date Type Department Care Team (Late st Contact Info) Description 03/07/2023 [employer] Message Enc [facility] [address] [place] [address] Georgiana Castro, CONTRACT PROCESSOR, CAR RENTAL AGENT-C [address] [facility] [address] [place] [address] Forms Social History Tobacco Use [...] Assessment Author Status No 04/08/2022 1:00 PM CREDIT CARD SPECIALIST Activ e * RETIRED Are you blind or do you have serious difficulty seeing, even when wearing glasses? Answer Date of Assessment Author Status No 04/08/2022 1:00 PM CREDIT CARD SPECIALIST Activ e * Do you have [...] st Contact Info) Description 06/26/2024 9:00 AM CREDIT CARD SPECIALIST Office Visit [facility] [place] [address] Hung Jiménez MD [address] [place] [address] documented as of this encounter Goals Goal Patient Goal Type Associated Problems Recent Progress Patient-Stated? Author Patient will return to prior living situation and remain independent in ADLs upon discharge from hospital General No Mildred Spencer, RN documented as of this encounter Visit Diagnoses Not on filedocumented in this encounter Care Teams Bingo Cashier Relationship Specialty Start Date End Date Chester Goodwin MD [address] [place] [phone] PCP - General INTERNAL MEDICINE 03/29/16 Nikhil Davis MD [address] [place] [phone] [facility] Manager CARDIOVASCULAR DISEASE 06/05/18 12/05/23 Baron Harris MD [address] [place] [address] Consulting Physician ORTHOPAEDIC SURGERY 02/10/22 Hung Jiménez MD [address] [place] [address] INTERVENTIONAL CARDIOLOGY 12/06/23 documented as of this encounter
--- NOTE | 2024-06-03 19:35 | ED.GENADULT ---
HPI - General Adult General Chief complaint: Upper Respiratory Infection Stated complaint: Chest congestion/difficulty breathing Time Seen by Provider: 06/03/24 19:29 History of Present Illness HPI narrative: Ed is a 79M with a PMH of HTN, HTN, previous tobacco use, presented to the ED not feeling well for 4 days. It started with orthopnea, then progressed to a cough, some dyspnea and sore throat. He has not been able to lay flat. No CP, syncope, nausea or vomiting. Related Data Home Medications ?Medication ?Instructions ?Recorded ?Confirmed ?Last Taken ?Type amlodipine 10 mg tablet 5 mg PO QAM 09/25/20 04/05/22 10/13/20 History aspirin 81 mg tablet,delayed 81 mg PO DAILY 09/25/20 04/05/22 10/06/20 History release cetirizine 5 mg tablet 5 mg PO 09/25/20 04/05/22 10/12/20 History clonidine HCl 0.1 mg tablet 0.1 mg QA 09/25/20 04/05/22 10/13/20 History doxazosin 8 mg tablet 16 mg PO HS 09/25/20 04/05/22 10/12/20 History hydrochlorothiazide 25 mg tablet 25 mg PO [facility] 09/25/20 04/05/22 10/12/20 History losartan 100 mg tablet 100 mg PO [facility] 09/25/20 04/05/22 10/12/20 History pravastatin 10 mg tablet 10 mg PO HS 09/25/20 04/05/22 10/12/20 History cholecalciferol (vitamin D3) 25 25 mcg PO DAILY 04/05/22 04/05/22 Unknown History mcg (1,000 unit) tablet (Vitamin D3) hydrocodone 10 mg-acetaminophen 1 tablet PO PRN PRN Breakthrough 04/05/22 04/05/22 Unknown History 325 mg tablet Pain lorazepam 1 mg tablet 1 mg PO PRN PRN Anxiety 04/05/22 04/05/22 Unknown History metformin 500 mg tablet,extended 1,000 mg PO HS 04/05/22 04/05/22 Unknown History release 24 hr potassium chloride 10 mEq 10 meq PO DAILY 04/05/22 04/05/22 Unknown History tablet,extended release(part/cryst) Allergies Allergy/AdvReac Type Severity Reaction Status Date / Time No Known Allergies Allergy Verified 06/03/24 19:04 Review of Systems Review of Systems: All systems reviewed & are unremarkable except as noted in HPI and below [facility] Past Medical History Medical History Arthritis H/O prostate cancer Hyperlipidemia Hypertension Social History Social History Smoking packs per day: 1 Smoking cigarettes per day: 20.0 Years smoked: 30 Smoking pack-years: 30.00 Smoking status: Former smoker Second hand tobacco smoke exposure: No Additional smoking assessment comments: PT UNABLE TO RECALL WHEN QUITTING Alcohol intake: former Substance use: never Substance use type: does not use Lack of Transportation: No Lack of Food: Never True Current Housing: I Have Housing Concerned About Future Housing: No Difficulty Paying Gas/Electric Bills: No Difficulty Paying for Meds: No Currently Unemployed: No Education: High School Diploma/GED Difficulty w/ Childcare or Family Care: No Living arrangements: with family Spiritual care concerns: No Exam Const: General: cooperative, healthy appearing, comfortable, no acute distress, well developed, alert, awake and Physically active Orientation/consciousness: oriented to person, oriented to place and oriented to time HENMT: Head: normal to inspection, normocephalic and atraumatic Ears: hearing grossly normal bilaterally and external ears normal Face/Nose/Sinus: Normal external nose present Eyes: General: appearance normal, both eyes and all related structures Periorbital: periorbital findings normal Sclera: sclerae normal Pupils: Equal, round and reactive pupils present Neck: Neck: normal visual inspection Chest: Chest palpation & inspection: normal inspection of the chest Resp: Effort & Inspection: normal respiratory effort, able to speak in complete sentences and no respiratory distress Other: diffuse wheezing with prolonged expiratory phase Cardio: Jugular venous distension: no JVD Rate: regular rate Rhythm: regular rhythm GI: Inspection: normal to inspection GI Palp: Yes Soft to palpation Auscultation: normal bowel sounds Skin: General skin exam: normal color and no rashes or lesions noted Neuro: General: oriented to person, oriented to place and oriented to time Cranial nerves: Yes Equal, round and reactive pupils present Extrem: General: normal to inspection Course Course Emergency Course: CHEST RADIOGRAPH CLINICAL HISTORY: dyspnea . COMPARISON: 04/05/2022 TECHNIQUE: Single portable view of the chest. FINDINGS The cardiomediastinal silhouette is unremarkable. Increased interstitial markings are identified bilaterally, findings suggesting mild pulmonary vascular congestion. The remainder of the lungs are clear. IMPRESSION: Mild pulmonary vascular congestion, without focal infiltrate or effusion. EKG showed NSR with a rate of 62, normal axis, no ST elevation/depression, no ectopy Positive for RSV. CBC and chemistries largely unremarkable as well as BNP and troponin. Given the diffuse wheezing, cough, and smoking history will treat for possible COPD. I recommended he f/u with his PCP for formal testing for his breathing. Vital Signs Vital signs: Vital Signs Temperature 98.1 F 06/03/24 18:58 Pulse Rate 68 06/03/24 18:58 Respiratory Rate 20 06/03/24 18:58 Blood Pressure 176/67 H 06/03/24 18:58 Pulse Oximetry 94 06/03/24 18:58 Oxygen Delivery Room Air 06/03/24 18:58 Temperature 98.1 F 06/03/24 18:58 Pulse Rate 67 06/03/24 20:13 Respiratory Rate 20 06/03/24 20:13 Blood Pressure 176/67 H 06/03/24 18:58 Pulse Oximetry 98 06/03/24 20:13 Oxygen Delivery Room Air 06/03/24 19:06 Medical Decision Making Vital Signs Vital Signs: Vital Signs Temperature 98.1 F 06/03/24 18:58 Pulse Rate 68 06/03/24 18:58 Respiratory Rate 20 06/03/24 18:58 Blood Pressure 176/67 H 06/03/24 18:58 Pulse Oximetry 94 06/03/24 18:58 Oxygen Delivery Room Air 06/03/24 18:58 Temperature 98.1 F 06/03/24 18:58 Pulse Rate 67 06/03/24 20:13 Respiratory Rate 20 06/03/24 20:13 Blood Pressure 176/67 H 06/03/24 18:58 Pulse Oximetry 98 06/03/24 20:13 Oxygen Delivery Room Air 06/03/24 19:06 Lab Data 06/03/24 19:50 06/03/24 19:50 Labs: Lab Results 06/03/24 06/03/24 Range/Units 19:41 19:50 WBC 5.5 (4.8-10.8) K/mm3 RBC 4.13 L (4.70-6.10) M/mm3 Hgb 12.6 (12.4-15.3) g/dL Hct 37.9 (37.0-46.0) % MCV 91.8 (78.0-102.0) fL MCH 30.5 (27.0-31.0) pg MCHC 33.2 (32-36) g/dL RDW 12.6 (11.6-14.4) % Plt Count 159 (150-420) K/mm3 MPV 9.8 (8.7-11.0) fl Immature Gran % (Auto) 0.2 H (0.0-0.0) % Neut % (Auto) 59.9 (50.0-70.0) % Lymph % (Auto) 22.9 (18.0-42.0) % [place] % (Auto) 8.1 (2.0-11.0) % Eos % (Auto) 8.3 H (1.0-6.0) % Baso % (Auto) 0.6 (0.0-1.0) % Lymph # (Auto) 1.25 (1.10-4.50) K/mm3 [place] # (Auto) 0.44 (0.10-0.90) K/mm3 Eos # (Auto) 0.45 (0.02-0.50) K/mm3 Baso # (Auto) 0.03 (0.00-0.10) K/mm3 Abs Immat Gran (auto) 0.01 H (0.00-0.00) K/mm3 Absolute Neuts (auto) 3.27 (1.70-7.20) K/mm3 Absolute Nucleated RBC 0.00 (0.00-0.00) K/mm3 Nucleated RBC % 0.0 (0-0.0) % Sodium 144 (136-145) mmol/L Potassium 4.4 (3.5-5.1) mmol/L Chloride 106 (98-108) mmol/L Carbon Dioxide 30 (21-32) mmol/L Anion Gap 8 (4-12) mmol/L BUN 22 H (7-18) mg/dL Creatinine 1.38 H (0.70-1.30) mg/dL Estim Creat Clear Calc 51 ml/min Estimated GFR 50 L (59 - ) Glucose 178 H (70-99) mg/dL Calculated Osmolality 305 H (285-295) mOsm/kg Calcium 8.6 (8.5-10.1) mg/dL Magnesium 2.0 (1.8-2.4) mg/dL Total Bilirubin 0.6 (0.00-1.00) mg/dL AST 21 (15-37) U/L ALT 21 (16-63) U/L Alkaline Phosphatase 128 H (46-116) U/L Troponin I 6.0 (0.00-60.4) ng/L NT-Pro-B Natriuret Pep 200 (0-450) pg/mL Total Protein 7.0 (6.4-8.2) g/dL Albumin 3.3 L (3.4-5.0) g/dL Influenza A (RT-PCR) Negative (Negative) Influenza B (RT-PCR) Negative (Negative) RSV (RT-PCR) Positive A (Negative) SARS-CoV-2 RNA (RT-PCR) Negative (Negative) Discharge Plan Discharge Clinical Impression: Respiratory syncytial virus (RSV), COPD exacerbation Patient Disposition: Home, Self-Care Condition: Stable Instructions: RSV (Respiratory Syncytial Virus) Infection (ED) Patient Language: Slovak Prescriptions: New prednisone 50 mg tablet 50 mg PO DAILY Qty: 4 0RF azithromycin 250 mg tablet 250 mg PO DAILY 4 Days Qty: 4 0RF Rx Instructions: start on day 2 of therapy No Action hydrocodone-acetaminophen 10-325 mg tablet 1 tablet PO PRN PRN (Reason: Breakthrough Pain) lorazepam 1 mg tablet 1 mg PO PRN PRN (Reason: Anxiety) metformin 500 mg tablet extended release 24 hr 1,000 mg PO HS potassium chloride 10 mEq tablet,ER particles/crystals 10 meq PO DAILY cholecalciferol (vitamin D3) [Vitamin D3] 25 mcg (1,000 unit) Tablet 25 mcg PO DAILY clonidine HCl 0.1 mg tablet 0.1 mg QAM cetirizine 5 mg Tablet 5 mg PO HS aspirin 81 mg Tablet,Delayed Release (Dr/Ec) 81 mg PO DAILY doxazosin 8 mg tablet 16 mg PO HS pravastatin 10 mg tablet 10 mg PO HS amlodipine 10 mg Tablet 5 mg PO QAM hydrochlorothiazide 25 mg tablet 25 mg PO QAM losartan 100 mg tablet 100 mg PO QAM Follow-up/Referrals: Chester Goodwin MD [Primary Care Provider] -
--- NOTE | 2024-06-03 19:39 | ECG_ITS ---
Test Date: 2024-06-03 20:16:50 Measurements Intervals [place] Rate: 62 P: 20 RI: 175 QRS: -15 QRSD: 105 T: 39 QT: 416 QTc: 423 Interpretive Statements SINUS RHYTHM POSSIBLE ANTERIOR MYOCARDIAL INFARCTION , OF INDETERMINATE AGE CONSIDER INFERIOR INFARCT, AGE INDETERMINATE BASELINE ARTIFACT- I, II, III, AVR, AVL, AVF, V1-V6 ABNORMAL ECG No previous ECG available for comparison Electronically Signed On 06-03-2024 20:24:39 MIMEOGRAPH OPERATOR by Nelson Mascorro D.O.
[2024-06-03 19:43] LABS: Influenza A QL RT-PCR Negative (Negative); Influenza B QL RT-PCR Negative (Negative); RSV RNA, RT-PCR Positive (Negative); SARS-CoV-2 RNA PCR Negative (Negative)
[2024-06-03 19:53] LABS: Basophils Absolute Auto 0.03 K/mm3 (0.00-0.10); Basophils Percent Auto 0.6 % (0.0-1.0); Eosinophils Absolute Auto 0.45 K/mm3 (0.02-0.50); Eosinophils Percent Auto 8.3 % (1.0-6.0); Hematocrit 37.9 % (37.0-46.0); Hemoglobin 12.6 g/dL (12.4-15.3); Immature Granulocyte Absolute 0.01 K/mm3 (0.00-0.00); Immature Granulocyte Percent A 0.2 % (0.0-0.0); Lymphocytes Absolute Auto 1.25 K/mm3 (1.10-4.50); Lymphocytes Percent Auto 22.9 % (18.0-42.0); Mean Corpuscular HGB Conc 33.2 g/dL (32-36); Mean Corpuscular Hemoglobin 30.5 pg (27.0-31.0); Mean Corpuscular Volume 91.8 fL (78.0-102.0); Mean Platelet Volume 9.8 fl (8.7-11.0); Monocytes Absolute Auto 0.44 K/mm3 (0.10-0.90); Monocytes Percent Auto 8.1 % (2.0-11.0); Neutrophils Absolute Auto 3.27 K/mm3 (1.70-7.20); Neutrophils Percent Auto 59.9 % (50.0-70.0); Platelet Count Result 159 K/mm3 (150-420); Red Blood Count 4.13 M/mm3 (4.70-6.10); Red Cell Distribution Width 12.6 % (11.6-14.4); White Blood Count 5.5 K/mm3 (4.8-10.8)
[2024-06-03] MEDS: IPRATROPIUM 0.5 MG/ALBUTEROL SULFATE 2.5 MG AMPUL.NEB 3 ML INHALATION (20:00)
[2024-06-03 20:02] VITALS: PULSE 72; RESP 20; O2SAT 93
[2024-06-03 20:13] VITALS: PULSE 67; RESP 20; O2SAT 98
[2024-06-03 20:17] LABS: Alanine Aminotransferase 21 U/L (16-63); Albumin Level 3.3 g/dL (3.4-5.0); Alkaline Phosphatase 128 U/L (46-116); Anion Gap 8 mmol/L (4-12); Aspartate Amino Transferase 21 U/L (15-37); Bilirubin,Total 0.6 mg/dL (0.00-1.00); Blood Urea Nitrogen 22 mg/dL (7-18); Calcium 8.6 mg/dL (8.5-10.1); Carbon Dioxide 30 mmol/L (21-32); Chloride 106 mmol/L (98-108); Estimated CRCL calculation 51 ml/min; Estimated Glomerular Filt Rate 50; Glucose 178 mg/dL (70-99); NT Pro B Type Natriuretic Pept 200 pg/mL (0-450); Osmolality Calculated 305 mOsm/kg (285-295); Potassium 4.4 mmol/L (3.5-5.1); Sodium 144 mmol/L (136-145)
[2024-06-03] MEDS: AZITHROMYCIN 250 MG TABLET 500 MG PO (20:23)
[2024-06-03] MEDS: predniSONE 40 MG, predniSONE 10 MG 50 MG PO (20:24)
[2024-06-03 20:41] VITALS: BP 148/75; PULSE 71; RESP 20; TEMP 36.9; O2SAT 97
== END 2024-06-03 20:41 | disposition home or self-care (01) ==
PROVIDERS: Emergency Provider Family Medicine; PCP Internal Medicine
DX: J44.1 Chronic obstructive pulmonary disease with (acute) exacerbation (principal); B97.4 Respiratory syncytial virus as the cause of diseases classified elsewhere; Z87.891 Personal history of nicotine dependence; Z20.822 Contact with and (suspected) exposure to COVID-19
CPT/HCPCS: 36415; 71045; 80053; 83735; 83880; 84484; 85025; 87637; 93005; 94640; 99284; A9270; J7512

== ENCOUNTER 2024-06-09 03:22 | Observation (INO) | payer MEDICARE, SELFPAY ==
[2024-06-09] VITALS (33 sets, daily range): BP systolic 143–166; BP diastolic 63–96; PULSE 61–79; RESP 13–20; TEMP 36.3–37; O2SAT 90–98; BMI 39.4
--- NOTE | ~2024-06-09 | XR_ITS ---
CHEST RADIOGRAPH CLINICAL HISTORY: Shortness of breath . COMPARISON: 06/03/2024 TECHNIQUE: Single portable view of the chest. FINDINGS The cardiomediastinal silhouette is unremarkable. Increased interstitial markings are identified bilaterally, findings suggesting mild pulmonary vascul ar congestion. The lungs are otherwise clear. IMPRESSION: Mild pulmonary vascular congestion, without focal infiltrate or effusion. Reviewed, dictated and finalized at location A. D MARKETER
--- OUTSIDE RECORDS SUMMARY | 2024-06-09 03:25 | XMS_ITS | Encounter Summary ---
Author Organization [facility] Address [address] [place] [address] Care Team Providers Care Trail Construction Worker Name Role Phone Chester Goodwin MD Primary Care Provider [phone] Nikhil Davis MD Unavailable Unavailabl e Baron Harris MD Unavailable [phone] Hung Jiménez MD Unavailable [phone] Encounter Details Date Type Department Care Team (Late Contact Info) Description 07/25/2018 Abstract [facility] [address] [place] [phone] Abstract, Doc Prevea Social History Tobacco Use [...] Upcoming Encounters Date Type Department Care Team ([facility] Contact Info) Description 06/26/2024 9:00 AM LUMBER TRIPPER Office Visit [facility] [place] [phone] Hung Jiménez MD [address] [place], [place] [phone] documented as of this encounter Visit Diagnoses Not on filedocumented in this encounter Additional Health Concerns Infection Onset Date Last Indicated Resolved Time COVID-19 Rule Out 06/11/2021 06/11/2021 06/11/2021 8:31 PM LUMBER TRIPPER COVID-19 Rule Out 04/06/2022 04/07/2022 04/07/2022 8:38 AM LUMBER TRIPPER documented as of this encounter Care Teams Trail Construction Worker Relationship Specialty Start Date End Date Chester Goodwin MD [address] [place] [phone] PCP - General INTERNAL MEDICINE 03/29/16 Nikhil Davis MD [address] [place] [phone] Ward Roll Finisher CARDIOVASCULAR DISEASE 06/05/18 12/05/23 Baron Harris MD [address] [place] [address] Consulting Physician ORTHOPAEDIC SURGERY 02/10/22 Hung Jiménez MD [address] [place] [address] INTERVENTIONAL CARDIOLOGY 12/06/23 documented as of this encounter
--- OUTSIDE RECORDS SUMMARY | 2024-06-09 03:25 | XMS_ITS | Encounter Summary ---
Author Organization [facility] Address [address] [place] [address] Care Team Providers Care Telecom Specialist Name Role Phone Chester Goodwin MD Primary Care Provider [phone] Jareth Michel MD Unavailable Unavailab Nikhil Lincoln MD Unavailable UnavailBaron Shetty MD Unavailable [phone] Hung Jiménez MD Unavailable [phone] Encounter Details Date Type Department Care Team (Late Contact Info) Description 10/11/2016 Abstract [facility] [address] [place] [phone] Jareth Michel MD Social History Tobacco Use [...] (Late Contact Info) Description 06/26/2024 9:00 AM INSOLE TOE SNIPPING MACHINE OPERATOR Office Visit [facility] [place] [phone] Hung Jiménez MD [address] [place], [place] [address] documented as of this encounter Visit Diagnoses Not on filedocumented in this encounter Additional Health Concerns Infection Onset Date Last Indicated Resolved Time COVID-19 Rule Out 06/11/2021 06/11/2021 06/11/2021 8:31 PM INSOLE TOE SNIPPING MACHINE OPERATOR COVID-19 Rule Out 04/06/2022 04/07/2022 04/07/2022 8:38 AM INSOLE TOE SNIPPING MACHINE OPERATOR documented as of this encounter Care Teams Telecom Specialist Relationship Specialty Start Date End Date Chester Goodwin MD [address] [place] [phone] PCP - General INTERNAL MEDICINE 03/29/16 Jareth Michel MD [address] [place] [phone] [place] [employer] Manager CARDIOVASCULAR DISEASE 10/21/16 06/04/18 Nikhil Davis MD [address] [place] [address] [employer] [facility] Manager CARDIOVASCULAR DISEASE 06/05/18 12/05/23 Baron Harris MD [address] [place] [address] Consulting Physician ORTHOPAEDIC SURGERY 02/10/22 Hung Jiménez MD [address] [place] [address] INTERVENTIONAL CARDIOLOGY 12/06/23 documented as of this encounter
--- OUTSIDE RECORDS SUMMARY | 2024-06-09 03:25 | XMS_ITS | Encounter Summary ---
Author Organization [facility] Address [address] [place] [address] Care Team Providers Care Studio Director Name Role Phone Chester Goodwin MD Primary Care Provider [phone] Jareth Michel MD Unavailable Unavailab Nikhil Lincoln MD Unavailable Unavailabl Baron Woods MD Unavailable [phone] Hung Jiménez MD Unavailable [phone] Encounter Details Date Type Department Care Team (Late Contact Info) Description 07/22/2015 Abstract [facility] [address] [place] [address] Kalpana Velasquez NP [address] [place] [address] Social History Tobacco Use Types [...] (Late Contact Info) Description 06/26/2024 9:00 AM ROLLING MILL OPERATOR HELPER Office Visit [facility] [place] [phone] uHng Jiménez MD [address] [place], [place] [address] documented as of this encounter Visit Diagnoses Not on filedocumented in this encounter Additional Health Concerns Infection Onset Date Last Indicated Resolved Time COVID-19 Rule Out 06/11/2021 06/11/2021 06/11/2021 8:31 PM ROLLING MILL OPERATOR HELPER COVID-19 Rule Out 04/06/2022 04/07/2022 04/07/2022 8:38 AM ROLLING MILL OPERATOR HELPER documented as of this encounter Care Teams Studio Director Relationship Specialty Start Date End Date Chester Goodwin MD [address] [place] [phone] PCP - General INTERNAL MEDICINE 03/29/16 Jareth Michel MD [address] [place] [phone] [place] [employer]ater CARDIOVASCULAR DISEASE 10/21/16 06/04/18 Nikhil Davis MD [address] [place] [address] [place] [employer] CARDIOVASCULAR DISEASE 06/05/18 12/05/23 Baron Harris MD [address] [place] [phone] Consulting Physician ORTHOPAEDIC SURGERY 02/10/22 Hung Jiménez MD [address] [place], [place] [phone] INTERVENTIONAL CARDIOLOGY 12/06/23 documented as of this encounter
--- OUTSIDE RECORDS SUMMARY | 2024-06-09 03:25 | XMS_ITS | Clinical Summary ---
Author Organization [facility] Address [address] [place] [address] Care Team Providers Care Discharge Coordinator Name Role Phone Chester Goodwin MD Primary Care Provider Baron Harris MD Unavailable [phone] Hung Jiménez MD Unavailable [phone] Allergies Active Allergy Reactions Criticality Noted Date Comments Spironolactone Other (see comment) 03/29/2016 Gynecomastia Medications Multiple Vitamins-Minera ls (CENTRUM SILVER ULTRA MENS) TabIndications: Supplement Take 1 tablet by mouth daily. Indications: Supplement 06/28/19 15 Active losartan 100 MG tabletIndicatio ns:treat high blood pressure Take 1 tablet (100 mg total) by mouth daily. Indications: treat high blood pressure 03/24/20 15 Active Cholecalciferol (VITAMIN D3) 1000 UNIT TabIndications: supplement Take 1 tablet (25 mcg total) by mouth daily. Indications: supplement 05/29/19 15 Active cetirizine 10 MG tabletIndicatio ns:treat allergic rhinitis, dermatitis, and urticaria Take 0.5 tablets (5 mg total) by mouth nightly. Indications: treat allergic rhinitis, dermatitis, and urticaria Active pravastatin 10 MG tabletIndicatio ns:treat high cholesterol Take 1 tablet (10 mg total) by mouth nightly at bedtime. Indications: treat high cholesterol 1 05/19/19 18 Active LORazepam 1 MG tabletIndicatio ns:Anxiety Take 1 tablet (1 mg total) by mouth every 8 (eight) hours as needed for Anxiety. Indications: Anxiety Active metFORMIN ER 500 MG 24 hr tabletIndicatio ns:treatment of type 2 diabetes Take 2 tablets (1,000 mg total) by mouth nightly. Indications: treatment of type 2 diabetes 06/09/19 22 Active aspirin EC 81 MG tabletIndicatio ns:hold Take 1 tablet (81 mg total) by mouth daily. Indications: hold Once completed with twice a day may resume home dose of once a day 81mg 28 tablet 06/15/19 22 Active potassium chloride CR (KLOR-CON M) 10 MEQ tabletIndicatio ns:Supplement Take 2 tablets (20 mEq total) by mouth daily. Indications: Supplement 60 tablet 06/21/19 23 Active amoxicillin (AMOXIL) 500 MG capsule Take 4 capsules (2,000 mg total) by mouth once. 08/05/19 23 Active cloNIDine (CATAPRES) 0.1 MG tablet Take 1 tablet (0.1 mg total) by mouth daily. 90 tablet 3 07/05/19 24 Active doxazosin (CARDURA) 8 MG tablet Take 1 tablet (8 mg total) by mouth nightly at bedtime. 90 tablet 2 08/09/19 24 Active carvedilol (COREG) 12.5 MG tablet TAKE 1 TABLET BY MOUTH TWICE DAILY 180 tablet 3 10/09/19 24 Active eplerenone (INSPRA) 25 MG tabletIndicatio ns:Primary hypertension Take 1 tablet (25 mg total) by mouth daily. 90 tablet 1 04/22/20 24 Active amLODIPine (NORVASC) 10 MG tablet TAKE 1 TABLET BY MOUTH DAILY FOR HYPERTENSION 90 tablet 3 06/07/19 25 Active amLODIPine (NORVASC) 10 MG tablet TAKE 1 TABLET BY MOUTH DAILY FOR HYPERTENSION 90 tablet 3 08/06/19 24 2024 Discontinued Active Problems Problem Noted Date Diagnosed Date Aortic stenosis 05/20/2022 Sepsis ([facility]) 04/06/2022 Paroxysmal atrial fibrillation ([facility]) 03/24/2022 Hyperlipidemia, unspecified hyperlipidemia type 11/20/2020 Bilateral carotid artery disease 08/17/2018 Other hemochromatosis 08/17/2018 HTN (hypertension) Prostate cancer ([facility]) [...] Type Department Care Team Description 04/22/2024 Abstract [facility] [address] [place] [address] Abstract, Doc Prevea 04/22/2024 Telephone [facility] [address] [place] [address] Georgiana Castro, SECURITY SPECIALIST, APPLICATION TRAINER-C Refill Request from Last 3 Months Family [...] Comments Blood Pressure 110/50 06/22/2023 1:27 PM CLEANER AND PRESSER Pulse 54 06/22/2023 1:27 PM CLEANER AND PRESSER Temperature 36.3 C (97.3 F) 06/11/2022 9:50 AM CLEANER AND PRESSER Respiratory Rate 16 06/22/2023 1:27 PM CLEANER AND PRESSER Oxygen Saturation 96% 06/22/2023 1:27 PM CLEANER AND PRESSER Inhaled Oxygen Concentration - - Weight 126.6 kg (279 lb 3.2 oz) 06/22/2023 1:27 PM CLEANER AND PRESSER Height 175.3 cm (5' 9 ) 06/22/2023 1:27 PM CLEANER AND PRESSER Body Mass Index 41.23 06/22/2023 1:27 PM CLEANER AND PRESSER Plan of Treatment Upcoming Encounters Date Type Department Care Team (Late st Contact Info) Description 06/26/2024 9:00 AM CLEANER AND PRESSER Office Visit [facility] [place] [address] Hung Jiménez MD [address] [place] [address] Health Maintenance Due Date Last Done [...] Ariza RN Medical Devices Implanted Type Area Trader Fixed Income Device Identifier Shelf Expiration Date Model / Serial / Lot Cement Simplex Hv W/Gentamicin - [id number] Implanted:Qty : 1 on 06/14/2021 by Denis Alanis MD at [facility] Cement Implant Left: Knee [employer] - DIV JAMIN JANUSZ 07/22/2022 6195-1-010 / / [id number] Cement Simplex Hv W/Gentamicin - [id number] Implanted:Qty : 1 on 06/14/2021 by Denis Alanis MD at [facility] Cement Implant Left: Knee [employer] JANUS[employer] 07/22/2022 6195-1-010 / / [id number] Baseplate Tibial Attune 7 Knee Cement Rotate Platform Sterile - [id number] Implanted:Qty : 1 on 06/14/2021 by Denis Alanis MD at [facility] Knee Components Left: Knee DEPUY [id number] 01/21/2031 [id number] / / [id number] Component Ptlr 38mm Medialize Dome Attune Kn - [id number] Implanted:Qty : 1 on 06/14/2021 by Denis Alanis MD at [facility] Patella Left: Knee [employer] - A BLUE [employer] BLUE [id number] 04/23/2026 [id number] / / [id number] Attune Femoral Cruciate Retaining Size 6 Cemented Implanted:Qty : 1 on 06/14/2021 by Denis Alanis MD at [facility] Left: Knee DEPUY [id number] 01/21/2031 [id number] / / [id number] Attune Tibial Insert Rotating Platform Cruciate Retaining Size 6 14mm Implanted:Qty : 1 on 06/14/2021 by Denis Alanis MD at [facility] Left: Knee DEPUY [id number] 05/24/2025 [id number] / / [id number] Spacer, 16mm Implanted:Qty : 1 on 03/21/2022 by Baron Harris MD at [facility] N/A: Spine Lumbar [employer] 03/23/2024 [id number] / / [id number] Explanted Type Area Trader Fixed Income Device Identifier Shelf Expiration Date Model / Serial / Lot Drill Bit Synthes 2.5 Qc 110mm Gold - [id number] Explanted:Qty: 1 on 06/14/2021 at [facility] Drill Left: Knee [employer] - A [employer] 310.25 / / Insurance MEDICARE MEDICARE AETNA Advance Directives * Full Code (Latest Code Status on File) Date Activated Date Inactivated Comments 04/13/2022 11:54 PM * Full Code Date Activated Date Inactivated Comments 04/06/2022 9:25 AM 04/13/2022 3:39 PM * Full Code Date Activated Date Inactivated Comments 06/14/2021 7:29 PM 06/15/2021 4:44 PM Care Teams Discharge Coordinator Relationship Specialty Start Date End Date Chester Goodwin MD [address] [place] [phone] PCP - General INTERNAL MEDICINE 03/29/16 Baron Harris MD [address] [place] [address] Consulting Physician ORTHOPAEDIC SURGERY 02/10/22 Hung Jiménez MD [address] [place] [address] INTERVENTIONAL CARDIOLOGY 12/06/23
--- OUTSIDE RECORDS SUMMARY | 2024-06-09 03:25 | XMS_ITS | Encounter Summary ---
Author Organization [facility] Address [address] [place] [address] Care Team Providers Care Research Soil Scientist Name Role Phone Chester Goodwin MD Primary Care Provider [phone] Nikhil Davis MD Unavailable Unavailabl e Baron Harris MD Unavailable [phone] Hung Jiménez MD Unavailable [phone] Encounter Details Date Type Department Care Team (Late st Contact Info) Description 01/06/2023 Abstract [facility] [address] [place] [address] Nikhil Davis MD Social History Tobacco Use [...] Assessment Author Status No 04/08/2022 1:00 PM GAMMA RAY OPERATOR Activ e * RETIRED Are you blind or do you have serious difficulty seeing, even when wearing glasses? Answer Date of Assessment Author Status No 04/08/2022 1:00 PM GAMMA RAY OPERATOR Activ e * Do you have serious [...] Author Status No 04/08/2022 1:00 PM Nerissa Gaudarrama RN Active documented as of this encounter Mental Status * Because of a physical, mental, or emotional condition, do you have serious difficulty concentrating, remembering, or making decisions? Answer Entry Date Author Status No 04/08/2022 1:00 PM Nerissa Guadarrama RN Active documented in this encounter Plan of Treatment Upcoming Encounters Date Type Department Care Team (Late st Contact Info) Description 06/26/2024 9:00 AM GAMMA RAY OPERATOR Office Visit [facility] [place] [address] Hung Jiménez MD [address] [place] [address] documented as of this encounter Goals [...] on filedocumented in this encounter Care Teams Research Soil Scientist Relationship Specialty Start Date End Date Chester Goodwin MD [address] [place] [address] PCP - General INTERNAL MEDICINE 03/29/16 Nikhil Davis MD [address] [place] [address] [place] Chief Meter Reader CARDIOVASCULAR DISEASE 06/05/18 12/05/23 Baron Harris MD [facility] [place] [address] Consulting Physician ORTHOPAEDIC SURGERY 02/10/22 Hung Jiménez MD [address] [place] [id number] INTERVENTIONAL CARDIOLOGY 12/06/23 documented as of this encounter
--- OUTSIDE RECORDS SUMMARY | 2024-06-09 03:25 | XMS_ITS | Encounter Summary ---
Author Organization [facility] Address [address] [place] [address] Care Team Providers Care Brush Cleaner Name Role Phone Chester Goodwin MD Primary Care Provider [phone] Jareth Michel MD Unavailable Unavailab Nikhil Lincoln MD Unavailable UnavailBaron Shetty MD Unavailable [phone] Hung Jiménez MD Unavailable [phone] Encounter Details Date Type Department Care Team (Late Contact Info) Description 03/29/2016 Abstract [facility] [address] [place] [address] Dana Brown, RN Social History Tobacco Use [...] (Late Contact Info) Description 06/26/2024 9:00 AM WELDER PRODUCTION LINE COMBINATION Office Visit [facility] [place] [address] Hung Jiménez MD [address] [place], [place] [address] documented as of this encounter Visit Diagnoses Not on filedocumented in this encounter Additional Health Concerns Infection Onset Date Last Indicated Resolved Time COVID-19 Rule Out 06/11/2021 06/11/2021 06/11/2021 8:31 PM WELDER PRODUCTION LINE COMBINATION COVID-19 Rule Out 04/06/2022 04/07/2022 04/07/2022 8:38 AM WELDER PRODUCTION LINE COMBINATION documented as of this encounter Care Teams Brush Cleaner Relationship Specialty Start Date End Date Chester Goodwin MD [address] [place] [phone] PCP - General INTERNAL MEDICINE 03/29/16 Jareth Michel MD [address] [place] [phone] [place] Garden Equipment Mechanic CARDIOVASCULAR DISEASE 10/21/16 06/04/18 Nikhil Davis MD [address] [place] [address] [place] Garden Equipment Mechanic CARDIOVASCULAR DISEASE 06/05/18 12/05/23 Baron Harris MD [address] [place] [address] Consulting Physician ORTHOPAEDIC SURGERY 02/10/22 Hung Jiménez MD [address] [place] [address] INTERVENTIONAL CARDIOLOGY 12/06/23 documented as of this encounter
--- OUTSIDE RECORDS SUMMARY | 2024-06-09 03:25 | XMS_ITS | Encounter Summary ---
Author Organization [facility] Address [address] [place] [address] Care Team Providers Care Binder And Box Builder Name Role Phone Chester Goodwin MD Primary Care Provider Nikhil Davis MD Unavailable Unavailabl e Baron Harris MD Unavailable [phone] Hung Jiménez MD Unavailable [phone] Encounter Details Date Type Department Care Team (Late st Contact Info) Description 03/07/2023 Cyrba Message Enc [facility] [address] [place] [address] Georgiana Castro, HOP GROWER, ROTARY ADJUSTER-C [address] [facility] [address] [place] [address] Forms Social History Tobacco Use [...] Assessment Author Status No 04/08/2022 1:00 PM LABOR RELATIONS WORKER Activ e * RETIRED Are you blind or do you have serious difficulty seeing, even when wearing glasses? Answer Date of Assessment Author Status No 04/08/2022 1:00 PM LABOR RELATIONS WORKER Activ e * Do you have serious [...] st Contact Info) Description 06/26/2024 9:00 AM LABOR RELATIONS WORKER Office Visit [facility] [place] [address] Hung Jiménez MD [address] [place] [address] documented as of this encounter Goals Goal Patient Goal Type Associated Problems Recent Progress Patient-Stated? Author Patient will return to prior living situation and remain independent in ADLs upon discharge from hospital General No Mildred Spencer, RN documented as of this encounter Visit Diagnoses Not on filedocumented in this encounter Care Teams Binder And Box Builder Relationship Specialty Start Date End Date Chester Goodwin MD [address] [place] [phone] PCP - General INTERNAL MEDICINE 03/29/16 Nikhil Davis MD [address] [place] [phone] [place] Loader Engineer CARDIOVASCULAR DISEASE 06/05/18 12/05/23 Baron Harris MD [address] [place] [address] Consulting Physician ORTHOPAEDIC SURGERY 02/10/22 Hung Jiménez MD [address] [place] [address] INTERVENTIONAL CARDIOLOGY 12/06/23 documented as of this encounter
--- OUTSIDE RECORDS SUMMARY | 2024-06-09 03:25 | XMS_ITS | Encounter Summary ---
Author Organization [facility] Address [address] [place] [address] Care Team Providers Care Inspector Boiler Name Role Phone Chester Goodwin MD Primary Care Provider [phone] Nikhil Davis MD Unavailable Unavailabl e Baron Harris MD Unavailable [phone] Hung Jiménez MD Unavailable [phone] Encounter Details Date Type Department Care Team (Late st Contact Info) Description 04/14/2022 Hospital Follow-up Call [facility] [address] [place] [address] Emilie Fournier RN Social History [...] Coronavirus/COVID-19? No / Unsure 04/08/2022 1:52 PM COSMETICS DEMONSTRATOR documented as of this encounter Functional Status * RETIRED Are you deaf or do you have serious difficulty hearing Answer Date of Assessment Author Status No 04/08/2022 1:00 PM COSMETICS DEMONSTRATOR Activ e * RETIRED Are you blind or do you have serious difficulty seeing, even when wearing glasses? Answer Date of Assessment Author Status No 04/08/2022 1:00 PM COSMETICS DEMONSTRATOR Activ e * Do you have serious [...] st Contact Info) Description 06/26/2024 9:00 AM COSMETICS DEMONSTRATOR Office Visit [facility] [place] [phone] Hung Jiménez MD [address] [place] [address] documented as of this encounter Goals Goal Patient Goal Type Associated Problems Recent Progress Patient-Stated? Author Patient will return to prior living situation and remain independent in ADLs upon discharge from hospital General No Mildred Spencer RN documented as of this encounter Visit Diagnoses Not on filedocumented in this encounter Care Teams Inspector Boiler Relationship Specialty Start Date End Date Chester Goodwin MD [address] [place] [address] PCP - General INTERNAL MEDICINE 03/29/16 Nikhil Davis MD [address] [place] [address] [place] [address] Flag Decorator CARDIOVASCULAR DISEASE 06/05/18 12/05/23 Baron Harris MD [address] [place] [address] Consulting Physician ORTHOPAEDIC SURGERY 02/10/22 Hung Jiménez MD [address] [place] [address] INTERVENTIONAL CARDIOLOGY 12/06/23 documented as of this encounter
--- NOTE | 2024-06-09 03:42 | ECG_ITS ---
Test Date: 2024-06-09 03:51:02 Measurements Intervals [place] Rate: 61 P: 93 UT: 172 QRS: 201 QRSD: 105 T: 177 QT: 398 QTc: 404 Interpretive Statements SINUS RHYTHM WITH OCCASIONAL SUPRAVENTRICULAR PREMATURE COMPLEXES LIMB LEAD REVERSAL CONSIDER ANTEROSEPTAL INFARCT, AGE INDETERMINATE BASELINE ARTIFACT- I, II, III, AVR, AVL, AVF, V1 ABNORMAL ECG Compared to ECG 06/03/2024 20:16:50 No significant changes Electronically Signed On 06-09-2024 08:16:32 JORDAN MAN by Nelson Mascorro D.O.
[2024-06-09] MEDS: methylPREDNISolone SOD SUCC 125 MG VIAL IV PUSH (04:00)
[2024-06-09] MEDS: IPRATROPIUM 0.5 MG/ALBUTEROL SULFATE 2.5 MG AMPUL.NEB 3 ML INHALATION ×5 (04:00→23:31)
--- NOTE | 2024-06-09 04:00 | ED_ITS ---
HPI - SOB/Dyspnea General Chief Complaint: Shortness of Breath/Dyspnea Stated Complaint: upper respiratory Time Seen by Provider: 06/09/24 03:36 Source: patient Mode of arrival: ambulatory Limitations: no limitations History of Present Illness HPI Narrative: this is a 79-year-old male with history of hypertension and hyperlipidemia presents to the emergency department with shortness of breath, patient woke up around 2 in the morning and felt short of breath with some episodes of coughing was productive of yellow sputum, the patient is afebrile with no nausea vomiting no chest pain does have some audible wheezing. Patient with diagnosed with RSV proximally 1 week ago and upper respiratory tract infection and sent home with steroids and azithromycin. MD elicited complaint: shortness of breath and cough Onset (ago): day(s) Context: recent illness Related Data Home Medications ?Medication ?Instructions ?Recorded ?Confirmed ?Last Taken ?Type amlodipine 10 mg tablet 5 mg PO QAM 09/25/20 04/05/22 10/13/20 History aspirin 81 mg tablet,delayed 81 mg PO DAILY 09/25/20 04/05/22 10/06/20 History release cetirizine 5 mg tablet 5 mg PO HS 09/25/20 04/05/22 10/12/20 History clonidine HCl 0.1 mg tablet 0.1 mg QA 09/25/20 04/05/22 10/13/20 History doxazosin 8 mg tablet 16 mg PO HS 09/25/20 04/05/22 10/12/20 History hydrochlorothiazide 25 mg tablet 25 mg PO QA 09/25/20 04/05/22 10/12/20 History losartan 100 mg tablet 100 mg PO [facility] 09/25/20 04/05/22 10/12/20 History pravastatin 10 mg tablet 10 mg PO HS 09/25/20 04/05/22 10/12/20 History cholecalciferol (vitamin D3) 25 25 mcg PO DAILY 04/05/22 04/05/22 Unknown History mcg (1,000 unit) tablet (Vitamin D3) hydrocodone 10 mg-acetaminophen 1 tablet PO PRN PRN Breakthrough 04/05/22 04/05/22 Unknown History 325 mg tablet Pain lorazepam 1 mg tablet 1 mg PO PRN PRN Anxiety 04/05/22 04/05/22 Unknown History metformin 500 mg tablet,extended 1,000 mg PO HS 04/05/22 04/05/22 Unknown History release 24 hr potassium chloride 10 mEq 10 meq PO DAILY 04/05/22 04/05/22 Unknown History tablet,extended release(part/cryst) Allergies Allergy/AdvReac Type Severity Reaction Status Date / Time No Known Allergies Allergy Verified 06/09/24 03:29 Review of Systems Review of Systems: All systems reviewed & are unremarkable except as noted in HPI and below PMFSH Past Medical History Medical History H/O prostate cancer Arthritis Hypertension Hyperlipidemia Social History Social History Smoking packs per day: 1 Smoking cigarettes per day: 20.0 Years smoked: 30 Smoking pack-years: 30.00 Smoking status: Former smoker Second hand tobacco smoke exposure: No Additional smoking assessment comments: PT UNABLE TO RECALL WHEN QUITTING Alcohol intake: former Substance use: never Substance use type: does not use Lack of Transportation: No Lack of Food: Never True Current Housing: I Have Housing Concerned About Future Housing: No Difficulty Paying Gas/Electric Bills: No Difficulty Paying for Meds: No Currently Unemployed: No Education: High School Diploma/GED Difficulty w/ Childcare or Family Care: No Living arrangements: with family Spiritual care concerns: No Exam Const: General: no acute distress and alert Nutritional Appearance: well nourished and obese Orientation/consciousness: patient oriented x3 Limitations: no limitations HENMT: Head: normal to inspection Neck: Neck: normal visual inspection, no lymphadenopathy and no meningeal signs Chest: Chest palpation & inspection: normal inspection of the chest Resp: Effort & Inspection: normal respiratory effort Auscultation: wheezes Cardio: Rate: regular rate Rhythm: regular rhythm GI: GI Palp: Yes Soft to palpation Auscultation: normal bowel sounds Skin: General skin exam: normal color Rashes: no rashes Extrem: General: normal to inspection and edema Course Course Emergency Course: patient with shortness of breath O2 sats around 88 to 90% placed on 2L currently satting at 93% on 2L of oxygen, patient recently diagnosed with RSV. RSV is positive, troponin negative, lactic acid 0.8 with a BNP of 251 white count 8.2. Chest x-ray appears to have left lower lobe opacity and will start Levaquin IV with some IV fluids and patient received 125 IV Solu-Medrol. Will admit patient under hospitalist Service. Vital Signs Vital signs: Vital Signs Pulse Oximetry 93 06/09/24 03:22 Oxygen Delivery Room Air 06/09/24 03:22 Temperature 36.6 C 06/09/24 03:25 Pulse Rate 65 06/09/24 03:45 Respiratory Rate 15 06/09/24 03:45 Blood Pressure 153/77 H 06/09/24 03:43 Pulse Oximetry 93 06/09/24 03:45 Oxygen Delivery Nasal Cannula 06/09/24 03:39 Oxygen Flow Rate 2 06/09/24 03:39 MDM - SOB/Dyspnea Lab Data Labs: Lab Results 06/09/24 Range/Units 03:41 Influenza A (RT-PCR) Pending Influenza B (RT-PCR) Pending RSV (RT-PCR) Pending SARS-CoV-2 RNA (RT-PCR) Pending Critical Care Time Critical Care Time Critical Care Time: No Discharge Plan Discharge Clinical Impression: History of RSV infection Pneumonia Qualifiers: Pneumonia type: due to unspecified organism Laterality: left Lung location: lower lobe of lung Qualified Code(s): J18.9 - Pneumonia, unspecified organism Patient Disposition: Acute Care Hospital Condition: Guarded Prognosis Patient Language: Pashto Prescriptions: No Action hydrocodone-acetaminophen 10-325 mg tablet 1 tablet PO PRN PRN (Reason: Breakthrough Pain) lorazepam 1 mg tablet 1 mg PO PRN PRN (Reason: Anxiety) metformin 500 mg tablet extended release 24 hr 1,000 mg PO HS potassium chloride 10 mEq tablet,ER particles/crystals 10 meq PO DAILY cholecalciferol (vitamin D3) [Vitamin D3] 25 mcg (1,000 unit) Tablet 25 mcg PO DAILY prednisone 50 mg tablet 50 mg PO DAILY Qty: 4 0RF azithromycin 250 mg tablet 250 mg PO DAILY 4 Days Qty: 4 0RF Rx Instructions: start on day 2 of therapy clonidine HCl 0.1 mg tablet 0.1 mg QAM cetirizine 5 mg Tablet 5 mg PO HS aspirin 81 mg Tablet,Delayed Release (Dr/Ec) 81 mg PO DAILY doxazosin 8 mg tablet 16 mg PO HS pravastatin 10 mg tablet 10 mg PO HS amlodipine 10 mg Tablet 5 mg PO QAM hydrochlorothiazide 25 mg tablet 25 mg PO QAM losartan 100 mg tablet 100 mg PO QAM Follow-up/Referrals: Johny Beckman MD [Primary Care Provider] - Time of Disposition: 04:35
[2024-06-09 04:06] LABS: Basophils Absolute Auto 0.02 K/mm3 (0.00-0.10); Basophils Percent Auto 0.2 % (0.0-1.0); Eosinophils Absolute Auto 0.04 K/mm3 (0.02-0.50); Eosinophils Percent Auto 0.5 % (1.0-6.0); Hematocrit 42.8 % (37.0-46.0); Immature Granulocyte Absolute 0.19 K/mm3 (0.00-0.00); Immature Granulocyte Percent A 2.3 % (0.0-0.0); Lymphocytes Absolute Auto 1.95 K/mm3 (1.10-4.50); Lymphocytes Percent Auto 23.8 % (18.0-42.0); Mean Corpuscular HGB Conc 32.7 g/dL (32-36); Mean Corpuscular Volume 91.8 fL (78.0-102.0); Mean Platelet Volume 9.8 fl (8.7-11.0); Monocytes Absolute Auto 0.65 K/mm3 (0.10-0.90); Monocytes Percent Auto 7.9 % (2.0-11.0); Neutrophils Absolute Auto 5.33 K/mm3 (1.70-7.20); Neutrophils Percent Auto 65.3 % (50.0-70.0); Platelet Count Result 235 K/mm3 (150-420); Red Blood Count 4.66 M/mm3 (4.70-6.10); Red Cell Distribution Width 12.7 % (11.6-14.4); White Blood Count 8.2 K/mm3 (4.8-10.8)
[2024-06-09 04:20] LABS: SARS-CoV-2 RNA PCR Negative (Negative)
[2024-06-09 04:21] LABS: Partial Thromboplastin Time 23.6 Sec (23.9-30.70)
[2024-06-09 04:22] LABS: Influenza A QL RT-PCR Negative (Negative); Influenza B QL RT-PCR Negative (Negative); RSV RNA, RT-PCR Positive (Negative)
[2024-06-09 04:25] LABS: Alanine Aminotransferase 22 U/L (16-63); Albumin Level 3.5 g/dL (3.4-5.0); Alkaline Phosphatase 117 U/L (46-116); Anion Gap 8 mmol/L (4-12); Aspartate Amino Transferase 26 U/L (15-37); Bilirubin,Total 0.8 mg/dL (0.00-1.00); Blood Urea Nitrogen 26 mg/dL (7-18); Calcium 8.5 mg/dL (8.5-10.1); Carbon Dioxide 32 mmol/L (21-32); Chloride 102 mmol/L (98-108); Estimated CRCL calculation 57 ml/min; Estimated Glomerular Filt Rate 56; Glucose 161 mg/dL (70-99); Magnesium 1.9 mg/dL (1.8-2.4); NT Pro B Type Natriuretic Pept 251 pg/mL (0-450); Osmolality Calculated 301 mOsm/kg (285-295); Potassium 4.3 mmol/L (3.5-5.1); Sodium 142 mmol/L (136-145); Total Protein 7.2 g/dL (6.4-8.2); Troponin I 8.1 ng/L (0.00-60.4)
[2024-06-09 04:30] LABS: Lactic Acid Reflex 0.8 mmol/L (0.4-2.0)
[2024-06-09] MEDS: SODIUM CHLORIDE 0.9% IV 1,000 ML 100 ML IV CONT ×2 (05:21→15:52)
[2024-06-09] MEDS: levoFLOXacin 500 MG/D5W 100 ML 500 MG/100 ML BAG 100 MG IVPB (05:21)
--- NOTE | 2024-06-09 05:26 | ADMGEN ---
This patient, Seun Burgess Jr., was admitted to 2nd Floor Room 209-1. Patient oriented to hospital policies and general routines including ID bracelet, bed and alarms, visiting hours, pain management, procedures, bathroom and other care routines, personal items, smoking policy, room service/diet, and visiting hours. Information on how to activate the Rapid Response Team has been discussed. Patient are encouraged to report perceived risks to care and to ask questions if they do not understand what they are told or what they should do.
[2024-06-09 08:42] LABS: Basophils Absolute Auto 0.02 K/mm3 (0.00-0.10); Basophils Percent Auto 0.3 % (0.0-1.0); Eosinophils Absolute Auto 0.02 K/mm3 (0.02-0.50); Eosinophils Percent Auto 0.3 % (1.0-6.0); Hematocrit 44.8 % (37.0-46.0); Hemoglobin 14.6 g/dL (12.4-15.3); Immature Granulocyte Percent A 2.6 % (0.0-0.0); Lymphocytes Absolute Auto 0.76 K/mm3 (1.10-4.50); Lymphocytes Percent Auto 9.8 % (18.0-42.0); Mean Corpuscular HGB Conc 32.6 g/dL (32-36); Mean Corpuscular Hemoglobin 29.8 pg (27.0-31.0); Mean Corpuscular Volume 91.4 fL (78.0-102.0); Mean Platelet Volume 10.1 fl (8.7-11.0); Monocytes Absolute Auto 0.21 K/mm3 (0.10-0.90); Monocytes Percent Auto 2.7 % (2.0-11.0); Neutrophils Absolute Auto 6.55 K/mm3 (1.70-7.20); Neutrophils Percent Auto 84.3 % (50.0-70.0); Platelet Count Result 257 K/mm3 (150-420); Red Cell Distribution Width 12.6 % (11.6-14.4); White Blood Count 7.8 K/mm3 (4.8-10.8)
[2024-06-09 08:57] LABS: Alanine Aminotransferase 29 U/L (16-63); Albumin Level 3.7 g/dL (3.4-5.0); Alkaline Phosphatase 123 U/L (46-116); Anion Gap 8 mmol/L (4-12); Aspartate Amino Transferase 19 U/L (15-37); Bilirubin,Total 1.1 mg/dL (0.00-1.00); Blood Urea Nitrogen 24 mg/dL (7-18); Calcium 8.6 mg/dL (8.5-10.1); Carbon Dioxide 33 mmol/L (21-32); Chloride 99 mmol/L (98-108); Estimated CRCL calculation 59 ml/min; Estimated Glomerular Filt Rate 60; Glucose 213 mg/dL (70-99); Osmolality Calculated 300 mOsm/kg (285-295); Potassium 4.2 mmol/L (3.5-5.1); Sodium 140 mmol/L (136-145); Total Protein 7.6 g/dL (6.4-8.2)
[2024-06-09] MEDS: cloNIDine HCL 0.1 MG TABLET BY MOUTH (09:05)
[2024-06-09] MEDS: LOSARTAN POTASSIUM 50 MG TABLET 100 MG PO (09:05)
[2024-06-09] MEDS: CHOLECALCIFEROL 1,000 UNITS TABLET 1000 UNITS PO (09:05)
[2024-06-09] MEDS: POTASSIUM CHLORIDE 10 MEQ ER TABLET PO (09:05)
[2024-06-09] MEDS: ASPIRIN 81 MG ENTERIC TABLET PO (09:06)
[2024-06-09] MEDS: amLODIPine BESYLATE 5 MG TABLET PO (09:06)
[2024-06-09] MEDS: methylPREDNISolone SOD SUCC 40 MG VIAL IV PUSH (09:15)
--- NOTE | 2024-06-09 10:39 | P.HP_ITS ---
H&P: HPI History of Present Illness Date/Time: 06/09/24 10:39 Chief Complaint: SOB Narrative: Patient is a 79-year-old male who who presented to the emergency department with complaints shortness of breath. Patient states he was diagnosed with RSV 6 days ago at his primary care physician at which time he was also prescribed azithromycin and prednisone. Woke in the middle of the night with worsening shortness breath, worsening productive cough with yellow sputum. Patient denied fever chills, chest pain, nausea vomiting. Patient reports past medical history of hypertension, HLD, diabetes, BPH, and former smoker. Per emergency department patient was initially hypoxic at 89-90 on arrival was placed on 2 L supplemental oxygen which time he responded well, CXR showed mild pulmonary vascular congestion without focal infiltrate or infusion. Patient was admitted to the medical unit for further evaluation and treatment of acute respiratory failure with hypoxia likely secondary to RSV infection. Review of Systems Review of Systems: All systems reviewed & are unremarkable except as noted in HPI and below PMFSH Past Medical History Medical History H/O prostate cancer Arthritis Hypertension Hyperlipidemia Social History Social History Smoking packs per day: 1 Smoking cigarettes per day: 20.0 Years smoked: 30 Smoking pack-years: 30.00 Smoking status: Former smoker Tobacco type: cigarettes Second hand tobacco smoke exposure: No Smoking end date: 05/26/99 Additional smoking assessment comments: PT UNABLE TO RECALL WHEN QUITTING Alcohol intake: never Substance use: never Substance use type: does not use Do You Feel Safe in your Home?: Yes Lack of Transportation: No Lack of Food: Never True Current Housing: I Have Housing Concerned About Future Housing: No Difficulty Paying Gas/Electric Bills: No Difficulty Paying for Meds: No Currently Unemployed: No Education: High School Diploma/GED Difficulty w/ Childcare or Family Care: No Living arrangements: with family Spiritual care concerns: No Meds Home Medications and Allergies Home Medications ?Medication ?Instructions ?Recorded ?Confirmed ?Type amlodipine 10 mg tablet 5 mg PO QAM 09/25/20 06/09/24 History aspirin 81 mg tablet,delayed 81 mg PO DAILY 09/25/20 06/09/24 History release cetirizine 5 mg tablet 5 mg PO HS 09/25/20 06/09/24 History clonidine HCl 0.1 mg tablet 0.1 mg PO QAM 09/25/20 06/09/24 History doxazosin 8 mg tablet 8 mg PO HS 09/25/20 06/09/24 History losartan 100 mg tablet 100 mg PO QAM 09/25/20 06/09/24 History pravastatin 10 mg tablet 10 mg PO HS 09/25/20 06/09/24 History cholecalciferol (vitamin D3) 25 25 mcg PO DAILY 04/05/22 06/09/24 History mcg (1,000 unit) tablet (Vitamin D3) lorazepam 1 mg tablet 1 mg PO Q12H PRN Anxiety 04/05/22 06/09/24 History metformin 500 mg tablet,extended 1,000 mg PO HS 04/05/22 06/09/24 History release 24 hr carvedilol 12.5 mg tablet 12.5 mg PO Q12H 06/09/24 06/09/24 History cetirizine 10 mg tablet (Allergy 10 mg PO DAILY 06/09/24 06/09/24 History Relief (cetirizine)) cholecalciferol (vitamin D3) 125 125 mcg PO DAILY 06/09/24 06/09/24 History mcg (5,000 unit) tablet (Vitamin D3) eplerenone 25 mg tablet 25 mg PO DAILY 06/09/24 06/09/24 History potassium chloride 10 mEq 20 meq PO DAILY 06/09/24 06/09/24 History tablet,extended release(part/cryst) (Klor-Con M) saxagliptin 5 mg tablet (Onglyza) 5 mg PO DAILY 06/09/24 06/09/24 History Allergies Allergy/AdvReac Type Severity Reaction Status Date / Time No Known Allergies Allergy Verified 06/09/24 03:29 Vital Signs Vital Signs - 24 hr 06/09/24 03:22 06/09/24 03:25 06/09/24 03:39 Temperature 98 F Pulse Rate 68 70 Respiratory Rate 18 13 Blood Pressure 166/73 H Pulse Oximetry 93 93 90 Oxygen Delivery Room Air Room Air Nasal Cannula Oxygen Flow Rate 2 06/09/24 03:43 06/09/24 03:45 06/09/24 03:55 Temperature Pulse Rate 69 65 62 Respiratory Rate 14 15 18 Blood Pressure 153/77 H 153/75 H Pulse Oximetry 92 93 96 Oxygen Delivery Oxygen Flow Rate 06/09/24 04:00 06/09/24 04:00 06/09/24 04:01 Temperature Pulse Rate 64 76 65 Respiratory Rate 20 Blood Pressure 148/80 H Pulse Oximetry 96 96 98 Oxygen Delivery Oxygen Flow Rate 2 06/09/24 04:10 06/09/24 04:15 06/09/24 04:17 Temperature Pulse Rate 73 72 61 Respiratory Rate 18 13 16 Blood Pressure 163/96 H Pulse Oximetry 94 92 Oxygen Delivery Oxygen Flow Rate 2 06/09/24 04:30 06/09/24 04:31 06/09/24 04:45 Temperature Pulse Rate 64 62 62 Respiratory Rate 16 16 18 Blood Pressure 158/73 H Pulse Oximetry 92 92 Oxygen Delivery Oxygen Flow Rate 06/09/24 04:46 06/09/24 05:00 06/09/24 05:59 Temperature Pulse Rate 62 71 62 Respiratory Rate 17 18 Blood Pressure 149/73 H Pulse Oximetry 91 92 Oxygen Delivery Nasal Cannula Nasal Cannula Oxygen Flow Rate 2 2 06/09/24 06:00 06/09/24 06:35 06/09/24 06:48 Temperature 97.4 F L Pulse Rate 62 62 62 Respiratory Rate 18 18 18 Blood Pressure 143/71 H Pulse Oximetry 92 92 95 Oxygen Delivery Nasal Cannula Oxygen Flow Rate 2 2 2 06/09/24 07:30 06/09/24 07:30 Temperature 97.3 F L Pulse Rate 65 65 Respiratory Rate 18 18 Blood Pressure 161/78 H Pulse Oximetry 92 92 Oxygen Delivery Nasal Cannula Nasal Cannula Oxygen Flow Rate 2 2 Exam Narrative: * GENERAL: Alert and oriented x 3. No acute distress. * EYES: PERRLA. * HEENT: Moist mucous membranes. * LUNGS: Wheezing to auscultation bilaterally. No accessory muscle use. * CARDIOVASCULAR: Regular rate and rhythm. No murmur. No JVD. S1-S2 * ABDOMEN: Soft, non tenderness and non-distended. No palpable masses. * EXTREMITIES: No edema. Non-tender * SKIN: No rashes or lesions. Skin warm, dry. * NEUROLOGIC: No focal neurological deficits. CN II-XII grossly intact * PSYCHIATRIC: Appropriate mood and affect. Good judgement and insight. H&P: Results Labs Labs: Short CBC 06/09/24 06/09/24 Range/Units 03:42 08:01 WBC 8.2 7.8 (4.8-10.8) K/mm3 Hgb 14.0 14.6 (12.4-15.3) g/dL Hct 42.8 44.8 (37.0-46.0) % Plt Count 235 257 (150-420) K/mm3 BMP 06/09/24 06/09/24 03:42 08:01 Sodium 142 140 Potassium 4.3 4.2 Chloride 102 99 Carbon Dioxide 32 33 H BUN 26 H 24 H Creatinine 1.25 1.18 Glucose 161 H 213 H Calcium 8.5 8.6 Cardiac Enzymes 06/09/24 Range/Units 03:42 Troponin I 8.1 (0.00-60.4) ng/L Liver Function 06/09/24 06/09/24 Range/Units 03:42 08:01 Total Bilirubin 0.8 1.1 H (0.00-1.00) mg/dL AST 26 19 (15-37) U/L ALT 22 29 (16-63) U/L Alkaline Phosphatase 117 H 123 H (46-116) U/L Albumin 3.5 3.7 (3.4-5.0) g/dL Imaging Chest x-ray: Radiologist's impression: CHEST RADIOGRAPH CLINICAL HISTORY: Shortness of breath . COMPARISON: 06/03/2024 TECHNIQUE: Single portable view of the chest. FINDINGS The cardiomediastinal silhouette is unremarkable. Increased interstitial markings are identified bilaterally, findings suggesting mild pulmonary vascular congestion. The lungs are otherwise clear. IMPRESSION: Mild pulmonary vascular congestion, without focal infiltrate or effusion. Assessment and Plan Assessment and plan (1) Acute respiratory failure with hypoxia: Code(s): J96.01 - Acute respiratory failure with hypoxia Status: Acute Assessment and Plan: Patient presented with oxygen saturation 89-90% per ER physician POA Likely secondary to RSV infection * DuoNebs * Steroids * Wean supplemental oxygen to maintain 92% * Mucolytics * Antipyretics * Will treat for possible bacterial however less likely due to clinical presentation placed on oral Augmentin receive 1 dose Rocephin in the ED * DDIMER reports he use to take Eliquis for AFIB but was taken off last year * EKG: SR (2) Respiratory syncytial virus (RSV): Code(s): B33.8 - Other specified viral diseases Status: Acute Assessment and Plan: Day 6 * Supportive care See above #1 (3) Diabetes: Code(s): E11.9 - Type 2 diabetes mellitus without complications Status: Acute Assessment and Plan: * Patient has stopped taking his metformin * Glucose 213 but has been on steroids * Will repeat A1c (4) Hypertension: Code(s): I10 - Essential (primary) hypertension Status: Acute Assessment and Plan: * Resumed home medications carvedilol, amlodipine, losartan Plan Code status: Full code per patient DVT prophylaxis: Lovenox Stress ulcer prophylaxis: Protonix 40 daily PT/OT notes: Ambulatory Disposition: Patient was admitted to the medical unit for acute respiratory with hypoxia secondary to RSV will continue to wean oxygen as tolerated patient is ambulatory on own plan will be to discharge back to home with spouse when medically stable. Quality VTE Prophylaxis VTE prophylaxis: pharmacologic ordered -Patient's previous records reviewed on admission -ER notes reviewed in detail on admission -discussed all findings and current treatment plan with patient/Family/POA -Consultations reviewed for recommendations -Patient's disposition for safe discharge discussed with case operator Dictation performed by [employer] direct speech recognition software, therefore escalator attendant variants and typographical errors may occur. Hospitalist [facility] Advance Care Plan I have confirmed that the patient's Advanced Care Plan is present, code status is documented, or surrogate decision maker is listed in patient medical record.: Yes Medication Reconciliation I have utilized all available resources to obtain, update and review the patients current medications (includes all prescriptions, OTC, herbals, cannabis, and nutritional supplements).: Yes The patient is not eligible for med reconciliation; the patient is in a emergent medical situation where delaying treatment would jeopardize the patients health.: No
[2024-06-09] MEDS: guaiFENesin 12 HR 600 MG TABCR 1200 MG PO ×2 (11:10→20:18)
[2024-06-09] MEDS: AMOXICILLIN/CLAVULANATE K 875-125 MG TAB 1 TABLET PO ×2 (11:10→20:16)
[2024-06-09] MEDS: SITagliptin PHOSPHATE 50 MG TABLET 100 MG PO (11:10)
[2024-06-09] MEDS: methylPREDNISolone SOD SUCC 40 MG VIAL 60 MG IV PUSH ×2 (13:24→21:11)
[2024-06-09] MEDS: PRAVASTATIN SODIUM 10 MG TABLET PO (20:16)
[2024-06-09] MEDS: carvediloL 12.5 MG TABLET PO (20:16)
[2024-06-09] MEDS: LORATADINE 10 MG TABLET PO (20:16)
[2024-06-09] MEDS: DOXAZOSIN MESYLATE 2 MG TABLET 16 MG PO (20:16)
[2024-06-09] MEDS: LORazepam (*CRX) 1 MG TABLET PO (20:16)
[2024-06-10] VITALS (7 sets, daily range): BP systolic 158–171; BP diastolic 64–69; PULSE 72–79; RESP 18–20; TEMP 36.6–37; O2SAT 89–98
[2024-06-10] MEDS: IPRATROPIUM 0.5 MG/ALBUTEROL SULFATE 2.5 MG AMPUL.NEB 3 ML INHALATION ×2 (05:35→13:06)
[2024-06-10] MEDS: methylPREDNISolone SOD SUCC 40 MG VIAL 60 MG IV PUSH (05:41)
[2024-06-10 05:53] LABS: Hematocrit 38.2 % (37.0-46.0); Hemoglobin 12.7 g/dL (12.4-15.3); Mean Corpuscular HGB Conc 33.2 g/dL (32-36); Mean Corpuscular Hemoglobin 29.8 pg (27.0-31.0); Mean Corpuscular Volume 89.7 fL (78.0-102.0); Mean Platelet Volume 10.1 fl (8.7-11.0); Platelet Count Result 234 K/mm3 (150-420); Red Blood Count 4.26 M/mm3 (4.70-6.10); Red Cell Distribution Width 12.4 % (11.6-14.4); White Blood Count 10.7 K/mm3 (4.8-10.8)
[2024-06-10 06:07] LABS: Hemoglobin A1C 6.6 % (<5.7)
[2024-06-10 06:10] LABS: Alanine Aminotransferase 18 U/L (16-63); Alkaline Phosphatase 106 U/L (46-116); Anion Gap 7 mmol/L (4-12); Aspartate Amino Transferase 14 U/L (15-37); Bilirubin,Total 0.7 mg/dL (0.00-1.00); Blood Urea Nitrogen 29 mg/dL (7-18); Calcium 8.4 mg/dL (8.5-10.1); Carbon Dioxide 29 mmol/L (21-32); Chloride 102 mmol/L (98-108); Estimated CRCL calculation 56 ml/min; Estimated Glomerular Filt Rate 55; Glucose 221 mg/dL (70-99); Osmolality Calculated 298 mOsm/kg (285-295); Potassium 4.4 mmol/L (3.5-5.1); Sodium 138 mmol/L (136-145); Total Protein 6.2 g/dL (6.4-8.2)
[2024-06-10 06:11] LABS: D Dimer 0.58 mg/L (0.19-0.50)
[2024-06-10] MEDS: CHOLECALCIFEROL 1,000 UNITS TABLET 5000 UNITS PO (09:50)
[2024-06-10] MEDS: carvediloL 12.5 MG TABLET PO (09:51)
[2024-06-10] MEDS: guaiFENesin 12 HR 600 MG TABCR 1200 MG PO (09:51)
[2024-06-10] MEDS: amLODIPine BESYLATE 5 MG TABLET PO (09:52)
[2024-06-10] MEDS: ASPIRIN 81 MG ENTERIC TABLET PO (09:52)
[2024-06-10] MEDS: cloNIDine HCL 0.1 MG TABLET BY MOUTH (09:52)
[2024-06-10] MEDS: LOSARTAN POTASSIUM 50 MG TABLET 100 MG PO (09:52)
[2024-06-10] MEDS: POTASSIUM CHLORIDE 10 MEQ ER TABLET PO (09:52)
[2024-06-10] MEDS: ENOXAPARIN 40 MG/0.4 ML SYRINGE SUB-Q (09:52)
[2024-06-10] MEDS: AMOXICILLIN/CLAVULANATE K 875-125 MG TAB 1 TABLET PO (09:52)
--- NOTE | 2024-06-10 10:55 | P.DS_ITS ---
DS: Admitting Diagnosis Discharge Date 06/10/2024 Admitting Diagnosis acute respiratory failure with hypoxia secondary to RSV DS: Discharge Diagnosis Discharge Diagnosis (1) Acute respiratory failure with hypoxia: Code(s): J96.01 - Acute respiratory failure with hypoxia Status: Acute Assessment and Plan: Patient presented with oxygen saturation 89-90% per ER physician POA Likely secondary to RSV infection * DuoNebs * Steroids * Wean supplemental oxygen to maintain 92% * Mucolytics * Antipyretics * Will treat for possible bacterial however less likely due to clinical presentation placed on oral Augmentin receive 1 dose Rocephin in the ED * DDIMER reports he use to take Eliquis for AFIB but was taken off last year * EKG: SR (2) Respiratory syncytial virus (RSV): Code(s): B33.8 - Other specified viral diseases Status: Acute Assessment and Plan: Day 6 * Supportive care See above #1 (3) Diabetes: Code(s): E11.9 - Type 2 diabetes mellitus without complications Status: Acute Assessment and Plan: * Patient has stopped taking his metformin * Glucose 213 but has been on steroids * Will repeat A1c (4) Hypertension: Code(s): I10 - Essential (primary) hypertension Status: Acute Assessment and Plan: * Resumed home medications carvedilol, amlodipine, losartan Plan Disposition: discharged to home DS: Summary Hospital Course Reason for hospitalization: acute respiratory failure with hypoxia secondary to RSV Hospital Course: Patient was a 79-year-old male who who presented to the emergency department with complaints shortness of breath. Patient states he was diagnosed with RSV 6 days ago at his primary care physician at which time he was also prescribed azithromycin and prednisone. Woke in the middle of the night with worsening shortness breath, worsening productive cough with yellow sputum. Patient denied fever chills, chest pain, nausea vomiting. Patient reports past medical history of hypertension, HLD, diabetes, BPH, and former smoker. Per emergency department patient was initially hypoxic at 89-90 on arrival was placed on 2 L supplemental oxygen which time he responded well, CXR showed mild pulmonary vascular congestion without focal infiltrate or infusion. Patient was admitted to the medical unit for further evaluation and treatment of acute respiratory failure with hypoxia likely secondary to RSV infection. continued with supportive care and transitioned to oral Augmentin for any underlying bacterial pneumonia coverage patient with overall improvement overnight with nebulizer treatments, incentive spirometer and Mucinex remained afebrile and normal WBC and weaned off of supplemental oxygen. patient is seen and assessed day of discharge in no acute distress with no further complaints reported SOB had improved as well as productive cough. patient was discharged home no further discharge needs ambulatory on own. Status at Discharge Functional status at discharge: independent ambulation Overall status at discharge: patient is back to baseline Time Spent with Patient Time attestation: Total time spent providing and/or coordinating discharge services: Time spent: Greater than 30 minutes Exam Narrative: * GENERAL: Alert and oriented x 3. No acute distress. * EYES: PERRLA. * HEENT: Moist mucous membranes. * LUNGS: Wheezing to auscultation bilaterally. No accessory muscle use. * CARDIOVASCULAR: Regular rate and rhythm. No murmur. No JVD. S1-S2 * ABDOMEN: Soft, non tenderness and non-distended. No palpable masses. * EXTREMITIES: No edema. Non-tender * SKIN: No rashes or lesions. Skin warm, dry. * NEUROLOGIC: No focal neurological deficits. CN II-XII grossly intact * PSYCHIATRIC: Appropriate mood and affect. Good judgement and insight. DS: Data Data Completed and Pending Labs on day of discharge: Labs from last 24 hours 06/10/24 05:32 WBC 10.7 RBC 4.26 L Hgb 12.7 Hct 38.2 MCV 89.7 MCH 29.8 MCHC 33.2 RDW 12.4 Plt Count 234 MPV 10.1 D-Dimer 0.58 H* Sodium 138 Potassium 4.4 Chloride 102 Carbon Dioxide 29 Anion Gap 7 BUN 29 H Creatinine 1.26 Estim Creat Clear Calc 56 Estimated GFR 55 L Glucose 221 H Hemoglobin A1c 6.6 H Calculated Osmolality 298 H Calcium 8.4 L Total Bilirubin 0.7 AST 14 L ALT 18 Alkaline Phosphatase 106 Total Protein 6.2 L Albumin 3.0 L Preliminary micro results at discharge 06/09/24 03:42 Blood Culture - Preliminary Blood 06/09/24 03:42 Blood Culture - Preliminary Blood Imaging Radiologist's impression: Chest x-ray: Radiologist's impression: CHEST RADIOGRAPH CLINICAL HISTORY: Shortness of breath . COMPARISON: 06/03/2024 TECHNIQUE: Single portable view of the chest. FINDINGS The cardiomediastinal silhouette is unremarkable. Increased interstitial markings are identified bilaterally, findings suggesting mild pulmonary vascular congestion. The lungs are otherwise clear. IMPRESSION: Mild pulmonary vascular congestion, without focal infiltrate or effusion. Discharge Plan Discharge Attending physician on discharge: Obinna Mays Discharging Clinician: Suzy Warner Anticipated Discharge Date/Time: 06/10/24 10:47 Patient Disposition: Home, Self-Care Activity: as tolerated Diet: heart healthy Discharge Instructions: Influenza: * Continue with supportive care * Acetaminophen or ibuprofen for aches pains and fever * encourage oral hydration * continue to use incentive spirometer Diabetes: * I encourage you to resume your Metformin medication or make dietary and lifestyle modifications your current A1c is 6.6 How can you care for yourself at home? ? Keep track of any new symptoms or changes in your symptoms. ? Rest until you feel better. ? Be safe with medicines. Take your medicines exactly as prescribed. Call your doctor if you think you are having a problem with your medicine. ? Do not drive after taking a prescription pain medicine. ? Ensure to follow-up with primary care physician as indicated and provide updated medication list provided to you at discharge. When should you call for help? Call 911 anytime you think you may need emergency care. For example, call if: ? You passed out (lost consciousness). Call your doctor now or seek immediate medical care if: ? You have new symptoms like fever, difficulty breathing, Chest pain, vomiting, or rash. ? You have new or different pain. ? You are confused and are having trouble thinking clearly. ? Your symptoms are getting worse. Watch closely for changes in your health, and be sure to contact your doctor if: ? You do not get better as expected. Patient Instructions: Antibiotic Form, Type 2 Diabetes in the Older Adult (DC), Diabetes and Exercise (DC), RSV (Respiratory Syncytial Virus) Infection (DC) Patient Language: Yakut Stand Alone Forms: General Discharge Information Follow-up/Referrals: Johny Beckman MD [Primary Care Provider] - 2 weeks Discharge Medications: New prednisone 20 mg Tablet 40 mg PO DAILY@0800 Qty: 4 0RF guaifenesin [Mucus Relief ER] 600 mg Tablet Extended Release 12hr 1,200 mg PO Q12HR Qty: 15 0RF amoxicillin-pot clavulanate 875-125 mg tablet 1 tablet PO Q12H Qty: 7 0RF Continued lorazepam 1 mg tablet 1 mg PO Q12H PRN (Reason: Anxiety) metformin 500 mg tablet extended release 24 hr 1,000 mg PO HS cholecalciferol (vitamin D3) [Vitamin D3] 25 mcg (1,000 unit) Tablet 25 mcg PO DAILY eplerenone 25 mg tablet 25 mg PO DAILY saxagliptin [Onglyza] 5 mg tablet 5 mg PO DAILY Patient Comments: daily after supper. carvedilol 12.5 mg tablet 12.5 mg PO Q12H Rx Instructions: must administer with a meal/food potassium chloride [Klor-Con M10] 10 mEq tablet,ER particles/crystals 20 meq PO DAILY cholecalciferol (vitamin D3) [Vitamin D3] 125 mcg (5,000 unit) tablet 125 mcg PO DAILY cetirizine [Allergy Relief (cetirizine)] 10 mg tablet 10 mg PO DAILY clonidine HCl 0.1 mg tablet 0.1 mg PO QAM cetirizine 5 mg Tablet 5 mg PO HS aspirin 81 mg Tablet,Delayed Release (Dr/Ec) 81 mg PO DAILY doxazosin 8 mg tablet 8 mg PO HS pravastatin 10 mg tablet 10 mg PO HS amlodipine 10 mg Tablet 5 mg PO QAM losartan 100 mg tablet 100 mg PO QAM Date of admission: 06/09/24 04:36 Primary Care Provider: Johny Beckman Admitting Provider: Obinna Mays Attending physician on admission: Suzy Warner Condition: Stable Quality VTE Prophylaxis VTE prophylaxis: pharmacologic ordered -Patient's previous records reviewed on admission -ER notes reviewed in detail on admission -discussed all findings and current treatment plan with patient/Family/POA -Consultations reviewed for recommendations -Patient's disposition for safe discharge discussed with block and case maker Dictation performed by [employer] direct speech recognition software, therefore learning design specialist variants and typographical errors may occur. Hospitalist MIPS Heart Failure (Exclusion) Patient has history of Heart Transplant or Left Ventricular Assistive Device?: No IF YES, STOP HERE Heart Failure (Qualifier) Patient has current or prior documentation of LVEF less than or equal to 40%, or mod/servere depressed LVSF?: No IF NO, STOP HERE
[2024-06-10] MEDS: predniSONE 20 MG TABLET 40 MG PO (11:08)
--- NOTE | 2024-06-10 13:55 | PC.NURSE ---
Discharge instructions reviewed with patient, verbalized understanding. Patient taken off floor per wheelchair.
--- NOTE | 2024-06-11 12:35 | PC.NURSE ---
Discharge call back completed, no questons regarding dc instructions, states o2 level low this am 89% but once up and moving and took meds, is now over 90%
== END 2024-06-10 13:55 | disposition home or self-care (01) ==
LOC: CHSED 04:35 → CHS2ND 08:08
PROVIDERS: Admitting Provider Internal Medicine; Emergency Provider Emergency Medicine; PCP Family Medicine; Visit Provider Nurse Practitioner Family
DX: J96.01 Acute respiratory failure with hypoxia (principal); B33.8 Other specified viral diseases; E11.9 Type 2 diabetes mellitus without complications; I10 Essential (primary) hypertension; E78.5 Hyperlipidemia, unspecified; M19.90 Unspecified osteoarthritis, unspecified site; N40.0 Benign prostatic hyperplasia without lower urinary tract symptoms; Z85.46 Personal history of malignant neoplasm of prostate; Z87.891 Personal history of nicotine dependence; Z20.822 Contact with and (suspected) exposure to COVID-19; Z79.82 Long term (current) use of aspirin; Z79.84 Long term (current) use of oral hypoglycemic drugs; Z79.899 Other long term (current) drug therapy
CPT/HCPCS: 36415; 71045; 80053; 83036; 83605; 83735; 83880; 84484; 85025; 85027; 85380; 85610; 85730; 87040; 87637; 93005; 94640; 96361; 96365; 96372; 96375; 96376; 99285; A9270; G0378; J1650; J1956; J2919; J7030; J7512

== ENCOUNTER 2024-07-17 07:12 | Outpatient (CLI) | payer MEDICARE, SELFPAY ==
--- OUTSIDE RECORDS SUMMARY | 2024-07-17 07:17 | XMS_ITS | Encounter Summary ---
Author Organization [facility] Address [facility] [place] [address] Care Team Providers Care Tankerman Name Role Phone Chester Goodwin MD Primary Care Provider [phone] Nikhil Davis MD Unavailable Unavailabl e Baron Harris MD Unavailable [phone] Hung Jiménez MD Unavailable [phone] Encounter Details Date Type Department Care Team (Late st Contact Info) Description 04/14/2022 Hospital Follow-up Call [facility] [address] [place] [address] Emilie Fournier RN Social History [...] Coronavirus/COVID-19? No / Unsure 04/08/2022 1:52 PM HAND PAINTER documented as of this encounter Functional Status * RETIRED Are you deaf or do you have serious difficulty hearing Answer Date of Assessment Author Status No 04/08/2022 1:00 PM HAND PAINTER Activ e * RETIRED Are you blind or do you have serious difficulty seeing, even when wearing glasses? Answer Date of Assessment Author Status No 04/08/2022 1:00 PM HAND PAINTER Activ e * Do you have serious [...] documented in this encounter Plan of Treatment Not on file documented as of this encounter Goals Goal Patient Goal Type Associated Problems Recent Progress Patient-Stated? Author Patient will return to prior living situation and remain independent in ADLs upon discharge from hospital General No Mildred Spencer RN documented as of this encounter Visit Diagnoses Not on filedocumented in this encounter Care Teams Tankerman Relationship Specialty Start Date End Date Chester Goodwin MD [address] [place] [id number] PCP - General INTERNAL MEDICINE 03/29/16 Nikhil Davis MD [address] [place] [phone] [place] Suction Worker CARDIOVASCULAR DISEASE 06/05/18 12/05/23 Baron Harris MD [address] [place] [id number] Consulting Physician ORTHOPAEDIC SURGERY 02/10/22 Hung Jiménez MD [address] [place] [address] INTERVENTIONAL CARDIOLOGY 12/06/23 documented as of this encounter
--- OUTSIDE RECORDS SUMMARY | 2024-07-17 07:18 | XMS_ITS | Encounter Summary ---
Author Organization [facility] Address [address] [place] [address] Care Team Providers Care Fiber Optics Engineer Name Role Phone Chester Goodwin MD Primary Care Provider [phone] Nikhil Davis MD Unavailable Unavailabl e Baron Harris MD Unavailable [phone] Hung Jiménez MD Unavailable [phone] Encounter Details Date Type Department Care Team (Late st Contact Info) Description 01/06/2023 Abstract [facility] [address] [place] [address] Nikhil Davis MD Social History Tobacco Use [...] Assessment Author Status No 04/08/2022 1:00 PM SAP ADMINISTRATOR Activ e * RETIRED Are you blind or do you have serious difficulty seeing, even when wearing glasses? Answer Date of Assessment Author Status No 04/08/2022 1:00 PM SAP ADMINISTRATOR Activ e * Do you have serious [...] ABS. BASOPHILS 0.05 0.00 - 0.10 01/06/2023 Result Shruthi Goodwin MD LAB-OUTSIDE/ABSTRACTED Final Result * HEMOGLOBIN, GLYCOSYLATED (01/06/2023) [facility] HGB A1C 6.6 <5.7 % 01/06/2023 us Chester Goodwin MD LABORATORY Final Result * LIPID PANEL (01/06/2023) [facility] CHOLESTEROL 153 0 - 200 HDL 48 40 - 60 TRIGLYCERIDES 189 0 - 150 LDL (CALCULATED) 67 01/06/2023 Result Shruthi Goodwin MD LABORATORY Final Result * CMP [...] on filedocumented in this encounter Care Teams Fiber Optics Engineer Relationship Specialty Start Date End Date Chester Goodwin MD [address] [place] [address] PCP - General INTERNAL MEDICINE 03/29/16 Nikhil Davis MD [address] [place] [address] [place] Instrumentation And Control Technician CARDIOVASCULAR DISEASE 06/05/18 12/05/23 Baron Harris MD [address] [place], [place] [address] Consulting Physician ORTHOPAEDIC SURGERY 02/10/22 Hung Jiménez MD [address] [place], [place] [id number] INTERVENTIONAL CARDIOLOGY 12/06/23 documented as of this encounter
--- OUTSIDE RECORDS SUMMARY | 2024-07-17 07:18 | XMS_ITS | Encounter Summary ---
Author Organization [facility] Address [address] [place] [address] Care Team Providers Care Inventory Administrator Name Role Phone Chester Goodwin MD Primary Care Provider Jareth Michel MD Unavailable Unavailab Nikhil Lincoln MD Unavailable Unavailabl Baron Woods MD Unavailable [phone] Hung Jiménez MD Unavailable [phone] Encounter Details Date Type Department Care Team (Late st Contact Info) Description 07/22/2015 Abstract [facility] [address] [place] [address] Kalpana Velasquez NP [address] [place] [address] Social History Tobacco Use Types [...] as of this encounter Plan of Treatment Not on file documented as of this encounter Visit Diagnoses Not on filedocumented in this encounter Additional Health Concerns Infection Onset Date Last Indicated Resolved Time COVID-19 Rule Out 06/11/2021 06/11/2021 06/11/2021 8:31 PM RN SCHOOL COVID-19 Rule Out 04/06/2022 04/07/2022 04/07/2022 8:38 AM RN SCHOOL documented as of this encounter Care Teams Inventory Administrator Relationship Specialty Start Date End Date Chester Goodwin MD [address] [place] [phone] PCP - General INTERNAL MEDICINE 03/29/16 Jareth Michel MD [address] [place] [address] [place] Front Maker Lockstitch CARDIOVASCULAR DISEASE 10/21/16 06/04/18 Nikhil Davis MD [address] [place] [address] [place] Front Maker Lockstitch CARDIOVASCULAR DISEASE 06/05/18 12/05/23 Baron Harris MD [facility] [place] [address] Consulting Physician ORTHOPAEDIC SURGERY 02/10/22 Hung Jiménez MD [address] [place] [address] INTERVENTIONAL CARDIOLOGY 12/06/23 documented as of this encounter
--- OUTSIDE RECORDS SUMMARY | 2024-07-17 07:18 | XMS_ITS | Encounter Summary ---
Author Organization [facility] Address [address] [place] [address] Care Team Providers Care Broom Stitcher Name Role Phone Chester Goodwin MD Primary Care Provider [phone] Jareth Michel MD Unavailable Unavailab Nikhil Lincoln MD Unavailable UnavailBaron Shetty MD Unavailable [phone] Hung Jiménez MD Unavailable [phone] Encounter Details Date Type Department Care Team (Late st Contact Info) Description 03/29/2016 Abstract [facility] [address] [place] [address] Dana Brown, RN Social History Tobacco Use [...] Rule Out 06/11/2021 06/11/2021 06/11/2021 8:31 PM CMM PROGRAMMER COVID-19 Rule Out 04/06/2022 04/07/2022 04/07/2022 8:38 AM CMM PROGRAMMER documented as of this encounter Care Teams Broom Stitcher Relationship Specialty Start Date End Date Chester Goodwin MD [address] [place] [phone] PCP - General INTERNAL MEDICINE 03/29/16 Jareth Michel MD [facility] [place] [address] [place] Lunch Truck Operator CARDIOVASCULAR DISEASE 10/21/16 06/04/18 Nikhil Davis MD [address] [place] [address] [place] Lunch Truck Operator CARDIOVASCULAR DISEASE 06/05/18 12/05/23 Baron Harris MD [address] [place] [address] Consulting Physician ORTHOPAEDIC SURGERY 02/10/22 Hung Jiménez MD [address] [place] [address] INTERVENTIONAL CARDIOLOGY 12/06/23 documented as of this encounter
--- OUTSIDE RECORDS SUMMARY | 2024-07-17 07:18 | XMS_ITS | Clinical Summary ---
Author Organization [facility] Address [address] [place] [address] Care Team Providers Care Manager Discovery Name Role Phone Chester Goodwin MD Primary Care Provider [phone] Baron Harris MD Unavailable [phone] Hung Jiménez MD Unavailable [phone] Allergies Active Allergy Reactions Criticality Noted Date Comments Spironolactone Other (see comment) 03/29/2016 Gynecomastia Medications Multiple Vitamins-Mineral s (CENTRUM SILVER ULTRA MENS) TabIndications:S upplement Take 1 tablet by mouth daily. Indications: Supplement 06/28/19 15 Active losartan 100 MG tabletIndication s:treat high blood pressure Take 1 tablet (100 mg total) by mouth daily. Indications: treat high blood pressure 03/24/20 15 Active Cholecalciferol (VITAMIN D3) 1000 UNIT TabIndications:s upplement Take 1 tablet (25 mcg total) by mouth daily. Indications: supplement 05/29/19 15 Active cetirizine 10 MG tabletIndication s:treat allergic rhinitis, dermatitis, and urticaria Take 0.5 tablets (5 mg total) by mouth nightly. Indications: treat allergic rhinitis, dermatitis, and urticaria Active pravastatin 10 MG tabletIndication s:treat high cholesterol Take 1 tablet (10 mg total) by mouth nightly at bedtime. Indications: treat high cholesterol 1 05/19/19 18 Active LORazepam 1 MG tabletIndication s:Anxiety Take 1 tablet (1 mg total) by mouth every 8 (eight) hours as needed for Anxiety. Indications: Anxiety Active metFORMIN ER 500 MG 24 hr tabletIndication s:treatment of type 2 diabetes Take 2 tablets (1,000 mg total) by mouth nightly. Indications: treatment of type 2 diabetes 06/09/19 22 Active aspirin EC 81 MG tabletIndication s:hold [...] total) by mouth once. 08/05/19 23 Active doxazosin (CARDURA) 8 MG tablet Take 1 tablet (8 mg total) by mouth nightly at bedtime. 90 tablet 2 08/09/19 24 Active carvedilol (COREG) 12.5 MG tablet TAKE 1 TABLET BY MOUTH TWICE DAILY 180 tablet 3 10/09/19 24 Active eplerenone (INSPRA) 25 MG tabletIndication s:Primary hypertension Take 1 tablet (25 mg total) by mouth daily. 90 tablet 1 04/22/20 24 Active amLODIPine (NORVASC) 10 MG tablet TAKE 1 TABLET BY MOUTH DAILY FOR HYPERTENSION 90 tablet 3 06/07/19 25 Active cloNIDine (CATAPRES) 0.1 MG tablet Take 1 tablet (0.1 mg total) by mouth 2 (two) times daily. 180 tablet 2 06/27/19 25 Active cloNIDine (CATAPRES) 0.1 MG tablet Take 1 tablet (0.1 mg total) by mouth daily. 90 tablet 3 07/05/19 24 025 Discontin ued(Reord er) Active Problems Problem Noted Date Diagnosed Date Aortic stenosis 05/20/2022 Sepsis ([facility]) 04/06/2022 Paroxysmal atrial fibrillation ([facility]) 03/24/2022 Hyperlipidemia, unspecified hyperlipidemia type 11/20/2020 Bilateral carotid artery disease 08/17/2018 Other hemochromatosis 08/17/2018 HTN (hypertension) Prostate cancer ([facility]) Overview (07/27/2018): with radiation GERD (gastroesophageal reflux disease) Borderline diabetic Resolved Problems Problem Noted Date Diagnosed Date Resolved Date Follow-up examination after orthopedic surgery 12/03/2021 06/13/2022 Aftercare following left kne e joint replacement surgery 09/03/2021 12/03/2021 Status post total left knee replacement 06/15/2021 12/03/2021 Primary osteoarthritis of left knee 05/11/2021 12/03/2021 Encounters Date Type Department Care Team Description 06/26/2024 9:00 AM LEAD SEWAGE PLANT OPERATOR Office Visit [facility] [place] [address] Hung Jiménez MD Follow Up 06/26/2024 Travel 06/24/2024 Telephone [facility] [address] [place] [address] Hung Jiménez MD Appointment Reminder 04/22/2024 Abstract [facility] [address] [place] [address] Abstract, Doc [facility] 04/22/2024 Telephone [facility] [address] [place] [address] Georgiana Castro, MEAT SOAKER, SOIL BIOLOGY TEACHER-C Refill Request from Last 3 Months Family [...] Sign Reading Time Taken Comments Blood Pressure 142/54 06/26/2024 8:42 AM LEAD SEWAGE PLANT OPERATOR Pulse 63 06/26/2024 8:42 AM LEAD SEWAGE PLANT OPERATOR Temperature 36.3 C (97.3 F) 06/11/2022 9:50 AM LEAD SEWAGE PLANT OPERATOR Respiratory Rate 16 06/26/2024 8:42 AM LEAD SEWAGE PLANT OPERATOR Oxygen Saturation 98% 06/26/2024 8:42 AM LEAD SEWAGE PLANT OPERATOR Inhaled Oxygen Concentration - - Weight 118.6 kg (261 lb 6.4 oz) 06/26/2024 8:42 AM LEAD SEWAGE PLANT OPERATOR Height 175.3 cm (5' 9 ) 06/26/2024 8:42 AM LEAD SEWAGE PLANT OPERATOR Body Mass Index 38.6 06/26/2024 8:42 AM LEAD SEWAGE PLANT OPERATOR Plan of Treatment Health Maintenance Due Date Last Done Comments Hepatitis C 1964 DTaP, Tdap and Td Vaccines (1 - Tdap) 1965 Zoster Vaccines (1 of 2) 1996 Annual Medicare Wellness Visit 2011 Pneumococcal Vaccine: 65+ Years (2 of 2 - PPSV23 or PCV20) 09/29/2015 08/04/2015 RSV Immunization or 60+ Years (1 - 1-dose 75+ series) 2021 COVID-19 Vaccine ( season) 2023 02/04/2021, 07/03/2020, 06/12/2020 Influenza Adult [...] Ariza RN Medical Devices Implanted Type Area Senior Investigator Device Identifier Shelf Expiration Date Model / Serial / Lot Cement Simplex Hv W/Gentamicin - [id number] Implanted:Qty : 1 on 06/14/2021 by Denis Alanis MD at [facility] Cement Implant Left: Knee [employer] - DIV JAMIN JANUSZ 07/22/2022 [id number] / / [id number] Cement Simplex Hv W/Gentamicin - [id number] Implanted:Qty : 1 on 06/14/2021 by Denis Alanis MD at [facility] Cement Implant Left: Knee [employer] - DIV JAMIN JANUSZ 07/22/2022 6195-1-010 / / [id number] Baseplate Tibial Attune 7 Knee Cement Rotate Platform Sterile - [id number] Implanted:Qty : 1 on 06/14/2021 by Denis Alanis MD at [facility] Knee Components Left: Knee DEPUY [id number] 01/21/2031 [id number] / / [id number] Component Ptlr 38mm Medialize Dome Attune Kn - [id number] Implanted:Qty : 1 on 06/14/2021 by Denis lAanis MD at [facility] Patella Left: Knee [employer] - A BLUE & BLUE [id number] 04/23/2026 [id number] / / [id number] Attune Femoral Cruciate Retaining Size 6 Cemented Implanted:Qty : 1 on 06/14/2021 by Denis Alanis MD at [facility] Left: Knee DEPUY [id number] 01/21/2031 [id number] / / [id number] Attune Tibial Insert Rotating Platform Cruciate Retaining Size 6 14mm Implanted:Qty : 1 on 06/14/2021 by Denis Alanis MD at [facility] Left: Knee DEPUY [id number] 05/24/2025 [id number] / / [id number] Spacer, 16mm Implanted:Qty : 1 on 03/21/2022 by Baron Harris MD at [facility] N/A: Spine Lumbar PARADIGM SPINE 03/23/2024 [id number] / / [id number] Explanted Type Area Senior Investigator Device Identifier Shelf Expiration Date Model / Serial / Lot Drill Bit Synthes 2.5 Qc 110mm Gold - [id number] Explanted:Qty: 1 on 06/14/2021 at [facility] Drill Left: Knee [employer] - A [employer] 310.25 / / Insurance MEDICARE MEDICARE AETNA Advance Directives * Full Code (Latest Code Status on File) Date Activated Date Inactivated Comments 04/13/2022 11:54 PM * Full Code Date Activated Date Inactivated Comments 04/06/2022 9:25 AM 04/13/2022 3:39 PM * Full Code Date Activated Date Inactivated Comments 06/14/2021 7:29 PM 06/15/2021 4:44 PM Care Teams Manager Discovery Relationship Specialty Start Date End Date Chester Goodwin MD [address] [place] [address] PCP - General INTERNAL MEDICINE 03/29/16 Baron Harris MD [address] [place] [address] Consulting Physician ORTHOPAEDIC SURGERY 02/10/22 Hung Jiménez MD [address] [place] [address] INTERVENTIONAL CARDIOLOGY 12/06/23
--- OUTSIDE RECORDS SUMMARY | 2024-07-17 07:18 | XMS_ITS | Encounter Summary ---
Author Organization [facility] Address [address] [place] [address] Care Team Providers Care Community Services Manager Name Role Phone Chester Goodwin MD Primary Care Provider Nikhil Davis MD Unavailable Unavailabl e Baron Harris MD Unavailable [phone] Hung Jiménez MD Unavailable Encounter Details Date Type Department Care Team (Late st Contact Info) Description 03/07/2023 DDx Media Message Enc [facility] [address] [place] [address] Georgiana Castro, FLOATLIGHT POWDER MIXER, MODEL MAKER SCALE-C [address] [facility] [address] [place] [address] Forms Social History Tobacco Use [...] Assessment Author Status No 04/08/2022 1:00 PM TRAVEL ASSISTANT Activ e * RETIRED Are you blind or do you have serious difficulty seeing, even when wearing glasses? Answer Date of Assessment Author Status No 04/08/2022 1:00 PM TRAVEL ASSISTANT Activ e * Do you have serious [...] on filedocumented in this encounter Care Teams Community Services Manager Relationship Specialty Start Date End Date Chester Goodwin MD [address] [place] [address] PCP - General INTERNAL MEDICINE 03/29/16 Nikhil Davis MD [address] [place] [address] [place] [address] Grain And Yeast Plants Supervisor CARDIOVASCULAR DISEASE 06/05/18 12/05/23 Baron Harris MD [address] [place] [address] Consulting Physician ORTHOPAEDIC SURGERY 02/10/22 Hung Jiménez MD [address] [place] [address] INTERVENTIONAL CARDIOLOGY 12/06/23 documented as of this encounter
--- OUTSIDE RECORDS SUMMARY | 2024-07-17 07:18 | XMS_ITS | Encounter Summary ---
Author Organization [facility] Address [address] [place] [address] Care Team Providers Care Digital Account Manager Name Role Phone Chester Goodwin MD Primary Care Provider [phone] Jareth Michel MD Unavailable Unavailab Nikhil Lincoln MD Unavailable UnavailBaron Shetty MD Unavailable [phone] Hung Jiménez MD Unavailable [phone] Encounter Details Date Type Department Care Team (Late st Contact Info) Description 10/11/2016 Abstract [facility] [address] [place] [address] Jareth Michel MD Social History Tobacco Use [...] Rule Out 06/11/2021 06/11/2021 06/11/2021 8:31 PM GLASS LATHE OPERATOR COVID-19 Rule Out 04/06/2022 04/07/2022 04/07/2022 8:38 AM GLASS LATHE OPERATOR documented as of this encounter Care Teams Digital Account Manager Relationship Specialty Start Date End Date Chester Goodwin MD [address] [place] [address] PCP - General INTERNAL MEDICINE 03/29/16 Jareth Michel MD [address] [place] [address] [place] Division Sergeant CARDIOVASCULAR DISEASE 10/21/16 06/04/18 Nikhil Davis MD [address] [place] [address] [place] Division Sergeant CARDIOVASCULAR DISEASE 06/05/18 12/05/23 Baron Harris MD [address] [place] [address] Consulting Physician ORTHOPAEDIC SURGERY 02/10/22 Hung Jiménez MD [facility] [place] [address] INTERVENTIONAL CARDIOLOGY 12/06/23 documented as of this encounter
--- OUTSIDE RECORDS SUMMARY | 2024-07-17 07:18 | XMS_ITS | Encounter Summary ---
Author Organization [facility] Address [address] [place] [address] Care Team Providers Care Substation Designer Name Role Phone Chester Goodwin MD Primary Care Provider [phone] Nikhil Davis MD Unavailable Unavailabl e Baron Harris MD Unavailable [phone] Hung Jiménez MD Unavailable [phone] Encounter Details Date Type Department Care Team (Late st Contact Info) Description 07/25/2018 Abstract [facility] [address] [place] [address] Abstract, Doc [facility] Social History Tobacco Use [...] Rule Out 06/11/2021 06/11/2021 06/11/2021 8:31 PM DOUBLE ENDING MACHINE OPERATOR COVID-19 Rule Out 04/06/2022 04/07/2022 04/07/2022 8:38 AM DOUBLE ENDING MACHINE OPERATOR documented as of this encounter Care Teams Substation Designer Relationship Specialty Start Date End Date Chester Goodwin MD [address] [place] [address] PCP - General INTERNAL MEDICINE 03/29/16 Nikhil Davis MD [address] [place] [address] [place] Housekeeper CARDIOVASCULAR DISEASE 06/05/18 12/05/23 Baron Harris MD [address] [place] [address] Consulting Physician ORTHOPAEDIC SURGERY 02/10/22 Hung Jiménez MD [address] [place] [address] INTERVENTIONAL CARDIOLOGY 12/06/23 documented as of this encounter
--- OUTSIDE RECORDS SUMMARY | 2024-07-17 07:19 | XMS_ITS | CONTINUITY OF CARE DOCUMENT ---
Author Name popeye nye Address Unknown Organization [facility] Address [address] [facility] [address] [place] [address] Phone [phone] Care Team Providers Care Staff Scientist Name Role Phone Thomas DURBIN, Krystina Unavailable [phone] INSURANCE PROVIDERS Payer name Policy type / Coverage type Moises red republican ID [employer] Commercial insurance co [facility] [id number] [place] Medicare [id number]
[2024-07-17 07:30] LABS: Add Urine Microscopic? NO; Appearance Urine Clear (Clear); Basophils Absolute Auto 0.06 K/mm3 (0.00-0.10); Basophils Percent Auto 0.8 % (0.0-1.0); Bilirubin Urine Negative (Negative); Blood Urine Negative (Negative); Color Urine Light Yellow (Yellow); Eosinophils Absolute Auto 0.73 K/mm3 (0.02-0.50); Eosinophils Percent Auto 10.1 % (1.0-6.0); Glucose Urine UA Negative (Negative); Hematocrit 41.4 % (37.0-46.0); Hemoglobin 13.9 g/dL (12.4-15.3); Immature Granulocyte Absolute 0.03 K/mm3 (0.00-0.00); Immature Granulocyte Percent A 0.4 % (0.0-0.0); Ketones Urine Negative (Negative); Leukocyte Esterase Ur Negative (Negative); Lymphocytes Absolute Auto 1.17 K/mm3 (1.10-4.50); Lymphocytes Percent Auto 16.3 % (18.0-42.0); Mean Corpuscular HGB Conc 33.6 g/dL (32-36); Mean Corpuscular Hemoglobin 30.3 pg (27.0-31.0); Mean Corpuscular Volume 90.2 fL (78.0-102.0); Monocytes Absolute Auto 0.62 K/mm3 (0.10-0.90); Monocytes Percent Auto 8.6 % (2.0-11.0); Neutrophils Absolute Auto 4.59 K/mm3 (1.70-7.20); Neutrophils Percent Auto 63.8 % (50.0-70.0); Nitrate Urine Negative (Negative); Platelet Count Result 194 K/mm3 (150-420); Protein Urine Negative (Negative); Red Blood Count 4.59 M/mm3 (4.70-6.10); Red Cell Distribution Width 12.9 % (11.6-14.4); Specific Grav Ur 1.015 (1.010-1.020); Urobilinogen Urine 0.2 mg/dL (0.2-1.0); White Blood Count 7.2 K/mm3 (4.8-10.8)
[2024-07-17 07:38] LABS: Creatinine Urine 39.19 mg/dL (40-278); MALB Creatinine Ratio 73.7 mg/g (0-30); Microalbumin Urine Random 28.9 mg/L
[2024-07-17 07:41] LABS: Hemoglobin A1C 6.9 % (<5.7)
[2024-07-17 08:23] LABS: Alanine Aminotransferase 21 U/L (16-63); Albumin Level 3.6 g/dL (3.4-5.0); Alkaline Phosphatase 143 U/L (46-116); Anion Gap 8 mmol/L (4-12); Aspartate Amino Transferase 19 U/L (15-37); Bilirubin,Total 0.9 mg/dL (0.00-1.00); Blood Urea Nitrogen 19 mg/dL (7-18); Calcium 8.8 mg/dL (8.5-10.1); Carbon Dioxide 29 mmol/L (21-32); Chloride 106 mmol/L (98-108); Cholesterol 166 mg/dL (0-200); Creatine Kinase 81 U/L (39-308); Estimated Glomerular Filt Rate > 60; Ferritin 56 ng/mL (26-388); Free T4 Free Thyroxine 1.13 ng/dL (0.76-1.46); Glucose 114 mg/dL (70-99); HDL Direct 54 mg/dL (40-60); Iron 88 ug/dL (65-175); LDL Cholesterol Calculated 84 mg/dL (<130); Osmolality Calculated 299 mOsm/kg (285-295); Potassium 4.3 mmol/L (3.5-5.1); Sodium 143 mmol/L (136-145); Thyroid Stimulating Hormone 3.23 uIU/mL (0.36-3.74); Total Protein 6.6 g/dL (6.4-8.2); Triglycerides 138 mg/dL (0-150)
== END 2024-07-17 07:13 | disposition home or self-care (01) ==
LOC: CHSLAB 07:15
PROVIDERS: PCP Internal Medicine; Visit Provider Internal Medicine
DX: E11.65 Type 2 diabetes mellitus with hyperglycemia (principal); I10 Essential (primary) hypertension; E78.2 Mixed hyperlipidemia; E83.119 Hemochromatosis, unspecified
CPT/HCPCS: 36415; 80053; 80061; 81003; 82043; 82550; 82728; 83036; 83540; 84439; 84443; 85025

== ENCOUNTER 2024-08-16 11:25 | Outpatient (CLI) | payer MEDICARE, SELFPAY ==
--- NOTE | ~2024-08-16 | XR_ITS ---
XR chest 2V 08/16/2024 11:48 Indication: Cough and shortness of breath Procedure: 2 view chest Comparison: No prior studies for comparison. Findings: Borderline heart size. No focal air space disease, pulmonary edema, pleural effusion or tenisha pected pneumothorax. Impression: 1: No acute cardiopulmonary disease. Reviewed, dictated and finalized at location A. Impression: 1: No acute cardiopulmonary disease.
--- OUTSIDE RECORDS SUMMARY | 2024-08-16 11:41 | XMS_ITS | CONTINUITY OF CARE DOCUMENT ---
Author Name popeye nye Address Unknown Organization [facility] Address [address] [facility] [address] [place] [address] Phone [phone] Care Team Providers Care Test Development Engineer Name Role Phone Thomas DURBIN, Krystina Unavailable INSURANCE PROVIDERS Payer name Policy type / Coverage type Moises red green party ID [employer] Commercial insurance co [facility] [id number] [place] Medicare [id number]
--- OUTSIDE RECORDS SUMMARY | 2024-08-16 11:41 | XMS_ITS | Encounter Summary ---
Author Organization [facility] Address [address] [place] [address] Care Team Providers Care Meat Hanger Name Role Phone Chester Goodwin MD Primary Care Provider [phone] Nikhil Davis MD Unavailable [phone] Baron Harris MD Unavailable [phone] Hung Jiménez MD Unavailable [phone] Encounter Details Date Type Department Care Team (Late st Contact Info) Description 01/06/2023 Abstract [facility] [address] [place] [address] Nikhil Davis MD [address] [place] [address] Social History Tobacco Use Types Packs/Day Years [...] Assessment Author Status No 04/08/2022 1:00 PM DRIVER MATERIAL HANDLER Activ e * RETIRED Are you blind or do you have serious difficulty seeing, even when wearing glasses? Answer Date of Assessment Author Status No 04/08/2022 1:00 PM DRIVER MATERIAL HANDLER Activ e * Do you have serious [...] 0 - 150 LDL (CALCULATED) 67 01/06/2023 us Chester Goodwin MD LABORATORY Final [...] TOTAL S/P/B 0.9 0.00 - 1.00 01/06/2023 us Chester Goodwin MD LAB-OUTSIDE/ABSTRACTED Final Result documented in this encounter Visit Diagnoses Not on filedocumented in this encounter Care Teams Meat Hanger Relationship Specialty Start Date End Date Chester Goodwin MD [address] [place] [address] PCP - General INTERNAL MEDICINE 03/29/16 Nikhil Davis MD [address] [place] [address] [facility] Dianetic Counselor CARDIOVASCULAR DISEASE 06/05/18 12/05/23 Baron Harris MD [address] [place] [address] Consulting Physician ORTHOPAEDIC SURGERY 02/10/22 Hung Jiménez MD [address] [place] [address] INTERVENTIONAL CARDIOLOGY 12/06/23 documented as of this encounter
--- OUTSIDE RECORDS SUMMARY | 2024-08-16 11:41 | XMS_ITS | Encounter Summary ---
Author Organization [facility] Address [address] [place] [address] Care Team Providers Care Wagon Winder Name Role Phone Chester Goodwin MD Primary Care Provider [phone] Jareth Michel MD Unavailable Unavailab Nikhil Lincoln MD Unavailable [phone] Baron Harris MD Unavailable [phone] Hung Jiménez MD Unavailable [phone] Encounter Details Date Type Department Care Team (Late st Contact Info) Description 03/29/2016 Abstract [facility] [address] [place] [address] Dana Brown, RN Social History Tobacco Use [...] Rule Out 06/11/2021 06/11/2021 06/11/2021 8:31 PM PLACEMENT ASSISTANT COVID-19 Rule Out 04/06/2022 04/07/2022 04/07/2022 8:38 AM PLACEMENT ASSISTANT documented as of this encounter Care Teams Wagon Winder Relationship Specialty Start Date End Date Chester Goodwin MD [address] [place] [address] PCP - General INTERNAL MEDICINE 03/29/16 Jareth Michel MD [address] [place] [address] [place] Fac Engineer CARDIOVASCULAR DISEASE 10/21/16 06/04/18 Nikhil Davis MD [address] [place] [address] [place] Fac Engineer CARDIOVASCULAR DISEASE 06/05/18 12/05/23 Baron Harris MD [facility] [place] [address] Consulting Physician ORTHOPAEDIC SURGERY 02/10/22 Hung Jiménez MD [address] [place] [address] INTERVENTIONAL CARDIOLOGY 12/06/23 documented as of this encounter
--- OUTSIDE RECORDS SUMMARY | 2024-08-16 11:41 | XMS_ITS | Encounter Summary ---
Author Organization [facility] Address [address] [place] [address] Care Team Providers Care Air Traffic Control Operator Name Role Phone Chester Goodwin MD Primary Care Provider [phone] Jareth Michel MD Unavailable Unavailab Nikhil Lincoln MD Unavailable [phone] Baron Harris MD Unavailable [phone] Hung Jiménez MD Unavailable [phone] Encounter Details Date Type Department Care Team (Late st Contact Info) Description 10/11/2016 Abstract [facility] [address] [place] [address] Jareth Michel MD Social History Tobacco Use [...] Rule Out 06/11/2021 06/11/2021 06/11/2021 8:31 PM HOOK AND EYE MACHINE OPERATOR COVID-19 Rule Out 04/06/2022 04/07/2022 04/07/2022 8:38 AM HOOK AND EYE MACHINE OPERATOR documented as of this encounter Care Teams Air Traffic Control Operator Relationship Specialty Start Date End Date Chester Goodwin MD [address] [place] [address] PCP - General INTERNAL MEDICINE 03/29/16 Jareth Michel MD [address] [place] [address] [place] Timber Estimator CARDIOVASCULAR DISEASE 10/21/16 06/04/18 Nikhil Davis MD [address] [place] [address] [place] Timber Estimator CARDIOVASCULAR DISEASE 06/05/18 12/05/23 Baron Harris MD [address] [place] [address] Consulting Physician ORTHOPAEDIC SURGERY 02/10/22 Hung Jiménez MD [address] [place] [address] INTERVENTIONAL CARDIOLOGY 12/06/23 documented as of this encounter
--- OUTSIDE RECORDS SUMMARY | 2024-08-16 11:41 | XMS_ITS | Encounter Summary ---
Author Organization [facility] Address [address] [place] [address] Care Team Providers Care Yarn Winder Name Role Phone Chester Goodwin MD Primary Care Provider [phone] Jareth Michel MD Unavailable Unavailab Nikhil Lincoln MD Unavailable [phone] Baron Harris MD Unavailable [phone] Hnug Jiménez MD Unavailable [phone] Encounter Details Date Type Department Care Team (Late st Contact Info) Description 07/22/2015 Abstract [facility] [address] [place] [address] Kalpana Velasquez, ESTELA [address] [place], [place] [address] Social History Tobacco Use Types Packs/Day Years [...] Rule Out 06/11/2021 06/11/2021 06/11/2021 8:31 PM INSIGHT DIRECTOR COVID-19 Rule Out 04/06/2022 04/07/2022 04/07/2022 8:38 AM INSIGHT DIRECTOR documented as of this encounter Care Teams Yarn Winder Relationship Specialty Start Date End Date Chester Goodwin MD [address] [place] [address] PCP - General INTERNAL MEDICINE 03/29/16 Jareth Michel MD [address] [place] [address] [place] Brim Shaper CARDIOVASCULAR DISEASE 10/21/16 06/04/18 Nikhil Davis MD [address] [place] [address] [place] Brim Shaper CARDIOVASCULAR DISEASE 06/05/18 12/05/23 Baron Harris MD [address] [place] [address] Consulting Physician ORTHOPAEDIC SURGERY 02/10/22 Hung Jiménez MD [address] [place], [place] [address] INTERVENTIONAL CARDIOLOGY 12/06/23 documented as of this encounter
--- OUTSIDE RECORDS SUMMARY | 2024-08-16 11:41 | XMS_ITS | Encounter Summary ---
Author Organization [facility] Address [address] [place] [address] Care Team Providers Care Candy Roller Name Role Phone Chester Goodwin MD Primary Care Provider [phone] Nikhil Davis MD Unavailable [phone] Baron Harris MD Unavailable [phone] Hung Jiménez MD Unavailable [phone] Encounter Details Date Type Department Care Team (Late st Contact Info) Description 07/25/2018 Abstract [facility] [address] [place] [address] Abstract, Doc [facility] Social History Tobacco Use [...] Rule Out 06/11/2021 06/11/2021 06/11/2021 8:31 PM SHEEP STICKER COVID-19 Rule Out 04/06/2022 04/07/2022 04/07/2022 8:38 AM SHEEP STICKER documented as of this encounter Care Teams Candy Roller Relationship Specialty Start Date End Date Chester Goodwin MD [address] [place] [address] PCP - General INTERNAL MEDICINE 03/29/16 Nikhil Davis MD [address] [place] [address] Falkner Decorating Inspector CARDIOVASCULAR DISEASE 06/05/18 12/05/23 Baron Harris MD [address] [place] [address] Consulting Physician ORTHOPAEDIC SURGERY 02/10/22 Hung Jiménez MD [address] [place] [address] INTERVENTIONAL CARDIOLOGY 12/06/23 documented as of this encounter
--- OUTSIDE RECORDS SUMMARY | 2024-08-16 11:41 | XMS_ITS | Encounter Summary ---
Author Organization [facility] Address [address] [place] [address] Care Team Providers Care Stadium Attendant Name Role Phone Chester Goodwin MD Primary Care Provider [phone] Nikhil Davis MD Unavailable [phone] Baron Harris MD Unavailable [phone] Hung Jiménez MD Unavailable [phone] Encounter Details Date Type Department Care Team (Late st Contact Info) Description 03/07/2023 Franchise Fund Message Enc [facility] eld [address] [place] [address] Georgiana Castro, YARY, RESIDENTIAL MENTAL HEALTH WORKER-C [address] [facility] [address] [place] [address] Forms Social History Tobacco Use [...] Assessment Author Status No 04/08/2022 1:00 PM LIQUID WASTE TREATMENT PLANT OPERATOR Activ e * RETIRED Are you blind or do you have serious difficulty seeing, even when wearing glasses? Answer Date of Assessment Author Status No 04/08/2022 1:00 PM LIQUID WASTE TREATMENT PLANT OPERATOR Activ e * Do you have [...] on filedocumented in this encounter Care Teams Stadium Attendant Relationship Specialty Start Date End Date Chester Goodwin MD [address] [place] [address] PCP - General INTERNAL MEDICINE 03/29/16 Nikhil Davis MD [address] [place] [address] [place] Pickling Grader CARDIOVASCULAR DISEASE 06/05/18 12/05/23 Baron Harris MD [address] [place] [address] Consulting Physician ORTHOPAEDIC SURGERY 02/10/22 Hung Jiménez MD [address] [place] [address] INTERVENTIONAL CARDIOLOGY 12/06/23 documented as of this encounter
--- OUTSIDE RECORDS SUMMARY | 2024-08-16 11:41 | XMS_ITS | Clinical Summary ---
Author Organization [facility] Address [address] [place] [address] Care Team Providers Care Java Analyst Name Role Phone Chester Goodwin MD Primary Care Provider [phone] Baron Harris MD Unavailable [phone] Hung Jiménez MD Unavailable [phone] Allergies Active Allergy Reactions Criticality Noted [...] mg total) by mouth once. 3 Active doxazosin (CARDURA) 8 MG tablet Take 1 tablet (8 mg total) by mouth nightly at bedtime. 90 tablet 2 4 Active carvedilol (COREG) 12.5 MG tablet TAKE 1 TABLET BY MOUTH TWICE DAILY 180 tablet 3 4 Active eplerenone (INSPRA) 25 MG tabletIndication s:Primary hypertension Take 1 tablet (25 mg total) by mouth daily. 90 tablet 1 4 Active amLODIPine (NORVASC) 10 MG tablet TAKE 1 TABLET BY MOUTH DAILY FOR HYPERTENSION 90 tablet 3 5 Active cloNIDine (CATAPRES) 0.1 MG tablet Take 1 tablet (0.1 mg total) by mouth 2 (two) times daily. 180 tablet 2 5 Active Active Problems Problem Noted Date Diagnosed Date Aortic stenosis 05/20/2022 Sepsis ([facility] HHS/HCC) 04/06/2022 Paroxysmal atrial fibrillation ([facility]) 03/24/2022 Hyperlipidemia, unspecified hyperlipidemia type 11/20/2020 Bilateral carotid artery disease 08/17/2018 Other hemochromatosis 08/17/2018 HTN (hypertension) Prostate cancer ([facility]) Overview (07/27/2018): with radiation GERD (gastroesophageal reflux disease) Borderline diabetic Resolved Problems Problem Noted Date Diagnosed Date Resolved Date Follow-up examination after orthopedic surgery 12/03/2021 06/13/2022 Aftercare following left kne e joint replacement surgery 09/03/2021 12/03/2021 Status post total left knee replacement 06/15/2021 12/03/2021 Primary osteoarthritis of left knee 05/11/2021 12/03/2021 Encounters Date Type Department Care Team Description 06/26/2024 9:00 AM POLICE MANAGER Office Visit [facility] [place] [address] Hung Jiménez MD Follow Up 06/26/2024 Travel 06/24/2024 Telephone [facility] ld [address] [place] [address] Hung Jiménez MD Appointment Reminder from Last 3 Months Family History Medical [...] Comments Blood Pressure 142/54 06/26/2024 8:42 AM POLICE MANAGER Pulse 63 06/26/2024 8:42 AM POLICE MANAGER Temperature 36.3 C (97.3 F) 06/11/2022 9:50 AM POLICE MANAGER Respiratory Rate 16 06/26/2024 8:42 AM POLICE MANAGER Oxygen Saturation 98% 06/26/2024 8:42 AM POLICE MANAGER Inhaled Oxygen Concentration - - Weight 118.6 kg (261 lb 6.4 oz) 06/26/2024 8:42 AM POLICE MANAGER Height 175.3 cm (5' 9 ) 06/26/2024 8:42 AM POLICE MANAGER Body Mass Index 38.6 06/26/2024 8:42 AM POLICE MANAGER Plan of Treatment Health Maintenance Due Date Last Done Comments Hepatitis C 1963 DTaP, Tdap and Td Vaccines ( 1 - Tdap) 1965 Zoster Vaccines (1 of 2) 1996 Annual Medicare Wellness Visit 2011 Pneumococcal Vaccine: 50+ Years (2 of 2 - PPSV23) 09/29/2015 08/04/2015 RSV Immunization or 60+ Years (1 - 1-dose 75+ series) 2021 COVID-19 Vaccine (4 - 2023-2 5 season) 2023 02/04/2021, 07/03/2020, 06/12/2020 Meningococcal B Vaccine Aged Out No l onger eligible based on patient's age to complete this topic Meningococcal Vaccine Aged Out No vandana moose eligible based on patient's age to complete this topic RSV Immunizations Under 20 Months Aged Out No longer eligible b ased on patient's age to complete this topic Goals Goal Patient Goal Type Associated Problems Recent Progress Patient-Stated? Author Patient will return to prior living situation and remain independent in ADLs upon discharge from hospital General Mildred Ariza, RN Medical Devices Implanted Type Area Renewable Energy Project Manager Device Identifier Shelf Expiration Date Model / Serial / Lot Cement Simplex Hv W/Gentamicin - [id number] Implanted:Qty : 1 on 06/14/2021 by Denis Alanis MD at [facility] Cement Implant Left: Knee [employer] - DIV JAMIN JANUSZ 07/22/2022 6195-1-010 / / [id number] Cement Simplex Hv W/Gentamicin - [id number] Implanted:Qty : 1 on 06/14/2021 by Denis Alanis MD at [facility] Cement Implant Left: Knee [employer] - DIV [employer]AM[employer] JANUSZ 07/22/2022 6195-1-010 / / [id number] Baseplate Tibial Attune 7 Knee Cement Rotate Platform Sterile - [id number] Implanted:Qty : 1 on 06/14/2021 by Denis Alanis MD at [facility] Knee Components Left: Knee DEPUY [id number] 01/21/2031 [id number] / / [id number] Component Ptlr 38mm Medialize Dome Attune Kn - [id number] Implanted:Qty : 1 on 06/14/2021 by Denis lAanis MD at [facility] Patella Left: Knee [employer] - A BLUE [employer] BLUE [id number] 04/23/2026 [id number] / / [id number] Attune Femoral Cruciate Retaining Size 6 Cemented Implanted:Qty : 1 on 06/14/2021 by Denis Alanis MD at [facility] Left: Knee DEPUY [id number] 01/21/2031 [id number] / / [id number] Attune Tibial Insert Rotating Platform Cruciate Retaining Size 6 14mm Implanted:Qty : 1 on 06/14/2021 by Denis Alanis MD at [facility] Left: Knee DEPUY [id number] 05/24/2025 [id number] / / [id number] Spacer, 16mm Implanted:Qty : 1 on 03/21/2022 by Baron Harris MD at [facility] N/A: Spine Lumbar [employer] SPINE 03/23/2024 [id number] / / [id number] Explanted Type Area Renewable Energy Project Manager Device Identifier Shelf Expiration Date Model / Serial / Lot Drill Bit Synthes 2.5 Qc 110mm Gold - [id number] Explanted:Qty: 1 on 06/14/2021 at [facility] Drill Left: Knee [employer] - [employer]UE [employer]UE CO 310.25 / / Insurance MEDICARE MEDICARE AETNA Advance Directives * Full Code (Latest Code Status on File) Date Activated Date Inactivated Comments 04/13/2022 11:54 PM * Full Code Date Activated Date Inactivated Comments 04/06/2022 9:25 AM 04/13/2022 3:39 PM * Full Code Date Activated Date Inactivated Comments 06/14/2021 7:29 PM 06/15/2021 4:44 PM Care Teams Java Analyst Relationship Specialty Start Date End Date Chester Goodwin MD [address] [place] [address] PCP - General INTERNAL MEDICINE 03/29/16 Baron Harris MD [address] [place] [address] Consulting Physician ORTHOPAEDIC SURGERY 02/10/22 Hung Jiménez MD [address] [place] [address] INTERVENTIONAL CARDIOLOGY 12/06/23
--- OUTSIDE RECORDS SUMMARY | 2024-08-16 11:41 | XMS_ITS | Encounter Summary ---
Author Organization [facility] Address [facility] [place] [address] Care Team Providers Care Park Worker Supervisor Name Role Phone Chester Goodwin MD Primary Care Provider [phone] Nikhil Davis MD Unavailable [phone] Baron Harris MD Unavailable [phone] Hung Jiménez MD Unavailable [phone] Encounter Details Date Type Department Care Team (Late st Contact Info) Description 04/14/2022 Hospital Follow-up Call [facility] [address] [place] [address] Emilie Fournier RN Social History [...] Coronavirus/COVID-19? No / Unsure 04/08/2022 1:52 PM RESERVES CLERK documented as of this encounter Functional Status * RETIRED Are you deaf or do you have serious difficulty hearing Answer Date of Assessment Author Status No 04/08/2022 1:00 PM RESERVES CLERK Activ e * RETIRED Are you blind or do you have serious difficulty seeing, even when wearing glasses? Answer Date of Assessment Author Status No 04/08/2022 1:00 PM RESERVES CLERK Activ e * Do you have serious [...] on filedocumented in this encounter Care Teams Park Worker Supervisor Relationship Specialty Start Date End Date Chester Goodwin MD [address] [place] [address] PCP - General INTERNAL MEDICINE 03/29/16 Nikhil Davis MD [address] [place] [address] Bullard Supervisor Car Installations CARDIOVASCULAR DISEASE 06/05/18 12/05/23 Baron Harris MD [address] [place] [address] Consulting Physician ORTHOPAEDIC SURGERY 02/10/22 Hung Jiménez MD [address] [place], [place] [address] INTERVENTIONAL CARDIOLOGY 12/06/23 documented as of this encounter
[2024-08-16 12:00] LABS: Hematocrit 39.1 % (37.0-46.0); Mean Corpuscular HGB Conc 33.2 g/dL (32-36); Mean Corpuscular Hemoglobin 30.2 pg (27.0-31.0); Mean Corpuscular Volume 90.9 fL (78.0-102.0); Mean Platelet Volume 10.1 fl (8.7-11.0); Platelet Count Result 160 K/mm3 (150-420); Red Cell Distribution Width 13.2 % (11.6-14.4)
[2024-08-16 12:03] LABS: Alanine Aminotransferase 23 U/L (16-63); Albumin Level 3.3 g/dL (3.4-5.0); Anion Gap 5 mmol/L (4-12); Aspartate Amino Transferase 22 U/L (15-37); Bilirubin,Total 0.8 mg/dL (0.00-1.00); Blood Urea Nitrogen 18 mg/dL (7-18); Calcium 8.3 mg/dL (8.5-10.1); Carbon Dioxide 32 mmol/L (21-32); Chloride 106 mmol/L (98-108); Estimated Glomerular Filt Rate 47; Glucose 125 mg/dL (70-99); Osmolality Calculated 298 mOsm/kg (285-295); Potassium 4.4 mmol/L (3.5-5.1); Sodium 143 mmol/L (136-145); Total Protein 6.6 g/dL (6.4-8.2)
[2024-08-16 13:04] LABS: Alkaline Phosphatase 138 U/L (46-116)
[2024-08-16 17:27] LABS: RSV RNA, RT-PCR Negative (Negative)
== END 2024-08-16 11:26 | disposition home or self-care (01) ==
LOC: CHSLAB 11:27
PROVIDERS: PCP Internal Medicine; Visit Provider Internal Medicine
DX: R05.9 Cough, unspecified (principal); R06.2 Wheezing
CPT/HCPCS: 36415; 71046; 80053; 85027; 87634

== ENCOUNTER 2024-09-18 15:54 | Outpatient (CLI) | payer MEDICARE, SELFPAY ==
--- OUTSIDE RECORDS SUMMARY | 2024-09-18 15:58 | XMS_ITS | CONTINUITY OF CARE DOCUMENT ---
Author Name popeye nye Address Unknown Organization [facility] Address [address] [facility] [address] [place] [address] Phone [phone] Care Team Providers Care Medical Billing Representative Name Role Phone Thomas DURBIN, Krystina Unavailable [phone] INSURANCE PROVIDERS Payer name Policy type / Coverage type Moises red libertarian ID [employer] Commercial insurance co [facility] [id number] [place] Medicare [id number]
[2024-09-18 16:54] LABS: Anion Gap 2 mmol/L (4-12); Blood Urea Nitrogen 22 mg/dL (9-20); Calcium 8.8 mg/dL (8.4-10.2); Carbon Dioxide 32 mmol/L (22-30); Chloride 109 mmol/L (98-107); Estimated Glomerular Filt Rate > 60; Glucose 139 mg/dL (65-110); Osmolality Calculated 301 mOsm/kg (285-295); Potassium 4.6 mmol/L (3.4-5.0); Sodium 143 mmol/L (137-145)
== END 2024-09-18 15:55 | disposition home or self-care (01) ==
LOC: CHSLAB 15:56
PROVIDERS: PCP Internal Medicine; Visit Provider Internal Medicine
DX: E86.0 Dehydration (principal)
CPT/HCPCS: 36415; 80048

== ENCOUNTER 2025-01-28 07:34 | Outpatient (CLI) | payer MEDICARE, SELFPAY ==
--- OUTSIDE RECORDS SUMMARY | 2025-01-28 07:39 | XMS_ITS | Encounter Summary ---
Author Organization [facility] Address [address] [place] [address] Care Team Providers Care Printing Shop Supervisor Name Role Phone Chester Goodwin MD Primary Care Provider [phone] Nikhil Davis MD Unavailable [phone] Baron Harris MD Unavailable [phone] Hung Jiménez MD Unavailable [phone] Georgiana Castro APRN, ARTERIAL EMBALMER-C Unavailable Kumar Quiroz MD Unavailable [phone] Encounter Details Date Type Department Care Team ([facility] st Contact Info) Description 03/07/2023 DirectRM Message Enc [facility] eld [address] [place] [address] Georgiana Castro APRN, ARTERIAL EMBALMER-C [address] [facility] [address] [place] [address] Forms Social History Tobacco Use [...] Assessment Author Status No 04/08/2022 1:00 PM LICENSED RETAIL SUPERVISOR Activ e * RETIRED Are you blind or do you have serious difficulty seeing, even when wearing glasses? Answer Date of Assessment Author Status No 04/08/2022 1:00 PM LICENSED RETAIL SUPERVISOR Activ e * Do you have serious [...] Care Team (Late st Contact Info) Description 06/30/2025 1:30 PM CDT Office Visit [facility] eld [address] [place] [address] Georgiana Castro, STEAM AND GAS TURBINES ASSEMBLER, ARTERIAL EMBALMER-C [address] [place] [phone] documented as of this encounter Goals Goal Patient Goal Type Associated Problems Recent Progress Patient-Stated? Author Patient will return to prior living situation and remain independent in ADLs upon discharge from hospital General Mildred Ariza RN documented as of this encounter Visit Diagnoses Not on filedocumented in this encounter Care Teams Printing Shop Supervisor Relationship Specialty Start Date End Date Chester Goodwin MD [address] [place] [address] PCP - General INTERNAL MEDICINE 03/29/16 Nikhil Davis MD [address] [place] [address] [place] Oil Expeller Operator CARDIOVASCULAR DISEASE 06/05/18 12/05/23 Baron Harris MD [facility] [place] [address] Consulting Physician ORTHOPAEDIC SURGERY 02/10/22 Hung Jiménez MD [facility] [place] [address] INTERVENTIONAL CARDIOLOGY 12/06/23 08/19/24 Georgiana Castro APRN, ARTERIAL EMBALMER-C [address] [place] [address] NURSE PRACTITIONER 08/20/24 Kumar Quiroz MD [address] [place] [address] Consulting Physician INTERVENTIONAL CARDIOLOGY 08/20/24 documented as of this encounter
--- OUTSIDE RECORDS SUMMARY | 2025-01-28 07:39 | XMS_ITS | Encounter Summary ---
Author Organization [facility] Address [address] [place] [address] Care Team Providers Care Beverage Inspection Machine Tender Name Role Phone Chester Goodwin MD Primary Care Provider [phone] Jareth Michel MD Unavailable Unavailab Nikhil Lincoln MD Unavailable [phone] Baron Harris MD Unavailable [phone] Hung Jiménez MD Unavailable Georgiana Castro APRN, NP-C Unavailable Kumar Quiroz MD Unavailable [phone] Encounter Details Date Type Department Care Team (Late Contact Info) Description 10/11/2016 Abstract [facility] [address] [place] [address] Jareth Michel MD Social History Tobacco Use [...] Department Care Team (Late Contact Info) Description 06/30/2025 1:30 PM CDT Office Visit [facility] eld [address] [place] [address] Georgiana Castro APRN, COTTON CLEANER-C [address] [facility] [address] [place] [address] documented as of this encounter Visit Diagnoses Not on filedocumented in this encounter Additional Health Concerns Infection Onset Date Last Indicated Resolved Time COVID-19 Rule Out 06/11/2021 06/11/2021 06/11/2021 8:31 PM SALES REPRESENTATIVE TRAINEE COVID-19 Rule Out 04/06/2022 04/07/2022 04/07/2022 8:38 AM SALES REPRESENTATIVE TRAINEE documented as of this encounter Care Teams Beverage Inspection Machine Tender Relationship Specialty Start Date End Date Chester Goodwin MD [address] [place] [address] PCP - General INTERNAL MEDICINE 03/29/16 Jareth Michle MD [address] [place] [address] [place] Senior Production Manager CARDIOVASCULAR DISEASE 10/21/16 06/04/18 Nikhil Davis MD [address] [place] [address] [place] Senior Production Manager CARDIOVASCULAR DISEASE 06/05/18 12/05/23 Baron Harris MD [address] [place] [address] Consulting Physician ORTHOPAEDIC SURGERY 02/10/22 Hung Jiménez MD [address] [place], [place] [address] INTERVENTIONAL CARDIOLOGY 12/06/23 08/19/24 Georgiana Castro APRN, COTTON CLEANER-C [address] [place] [address] [address] NURSE PRACTITIONER 08/20/24 Kumar Quiroz MD [address] [place] [address] Consulting Physician INTERVENTIONAL CARDIOLOGY 08/20/24 documented as of this encounter
--- OUTSIDE RECORDS SUMMARY | 2025-01-28 07:39 | XMS_ITS | Encounter Summary ---
Author Organization [facility] Address [address] [place] [address] Care Team Providers Care Bulker Name Role Phone Chester Goodwin MD Primary Care Provider [phone] Nikhil Davis MD Unavailable [phone] Baron Harris MD Unavailable [phone] Hung Jiménez MD Unavailable [phone] Georgiana Castro APRN, NP-C Unavailable [phone] Kumar Quiroz MD Unavailable [phone] Encounter Details Date Type Department Care Team (Late st Contact Info) Description 07/25/2018 Abstract [facility] [address] [place] [address] Abstract, Doc Pre[facility] Social History Tobacco Use [...] Description 06/30/2025 1:30 PM CDT Office Visit [facility] eld [address] [place] [address] Georgiana Castro APRN, MEDICAL DIAGNOSTIC RADIOGRAPHER-C [address] [phone] documented as of this encounter Visit Diagnoses Not on filedocumented in this encounter Additional Health Concerns Infection Onset Date Last Indicated Resolved Time COVID-19 Rule Out 06/11/2021 06/11/2021 06/11/2021 8:31 PM TRAILER CHIEF COVID-19 Rule Out 04/06/2022 04/07/2022 04/07/2022 8:38 AM TRAILER CHIEF documented as of this encounter Care Teams Bulker Relationship Specialty Start Date End Date Chester Goodwin MD [address] [place] [address] PCP - General INTERNAL MEDICINE 03/29/16 Nikhil Davis MD [address] [place] [address] [place] Learning Consultant CARDIOVASCULAR DISEASE 06/05/18 12/05/23 Baron Harris MD [address] [place] [address] Consulting Physician ORTHOPAEDIC SURGERY 02/10/22 Hung Jiméenz MD [address] [place], [place] [address] INTERVENTIONAL CARDIOLOGY 12/06/23 08/19/24 Georgiana Castro APRN, MEDICAL DIAGNOSTIC RADIOGRAPHER-C [address] [phone] NURSE PRACTITIONER 08/20/24 Kumar Quiroz MD [address] [place] [address] Consulting Physician INTERVENTIONAL CARDIOLOGY 08/20/24 documented as of this encounter
--- OUTSIDE RECORDS SUMMARY | 2025-01-28 07:39 | XMS_ITS | Clinical Summary ---
Author Organization [facility] Address [address] [place] [address] Care Team Providers Care Deboner Name Role Phone Chester Goodwin MD Primary Care Provider [phone] Baron Harris MD Unavailable [phone] Georgiana Castro APRN, LICENSING SPECIALIST-C Unavailable [phone] Kumar Quiroz MD Unavailable [phone] Allergies Active Allergy Reactions Criticality Noted Date [...] mg total) by mouth once. 3 Active amLODIPine (NORVASC) 10 MG tablet TAKE 1 TABLET BY MOUTH DAILY FOR HYPERTENSION 90 tablet 3 5 Active cloNIDine (CATAPRES) 0.1 MG tablet Take 1 tablet (0.1 mg total) by mouth 2 (two) times daily. 180 tablet 2 5 Active eplerenone (INSPRA) 25 MG tabletIndication s:Primary hypertension Take 1 tablet (25 mg total) by mouth daily. 90 tablet 3 5 Active carvedilol (COREG) 12.5 MG tablet TAKE 1 TABLET BY MOUTH TWICE DAILY 180 tablet 3 5 Active doxazosin (CARDURA) 8 MG tablet TAKE 1 TABLET BY MOUTH EVERY NIGHT AT BEDTIME 90 tablet 3 5 Active Active Problems Problem Noted Date Diagnosed Date Aortic stenosis 05/20/2022 Sepsis ([facility]) 04/06/2022 Paroxysmal atrial fibrillation ([facility]) 03/24/2022 Hyperlipidemia, unspecified hyperlipidemia type 11/20/2020 Bilateral carotid artery disease 08/17/2018 Other hemochromatosis 08/17/2018 HTN (hypertension) Prostate cancer ([facility]) Overview (07/27/2018): with radiation GERD (gastroesophageal reflux disease) Borderline diabetic Resolved Problems Problem Noted Date Diagnosed Date Resolved Date Follow-up examination after orthopedic surgery 12/03/2021 06/13/2022 Aftercare following left kne e joint replacement surgery 09/03/2021 12/03/2021 Status post total left knee replacement 06/15/2021 12/03/2021 Primary osteoarthritis of left knee 05/11/2021 12/03/2021 Family History Medical History Relation Comments Cancer [...] Comments Blood Pressure 142/54 06/26/2024 8:42 AM SULFURIC ACID PLANT OPERATOR Pulse 63 06/26/2024 8:42 AM SULFURIC ACID PLANT OPERATOR Temperature 36.3 C (97.3 F) 06/11/2022 9:50 AM SULFURIC ACID PLANT OPERATOR Respiratory Rate 16 06/26/2024 8:42 AM SULFURIC ACID PLANT OPERATOR Oxygen Saturation 98% 06/26/2024 8:42 AM SULFURIC ACID PLANT OPERATOR Inhaled Oxygen Concentration - - Weight 118.6 kg (261 lb 6.4 oz) 06/26/2024 8:42 AM SULFURIC ACID PLANT OPERATOR Height 175.3 cm (5' 9) 06/26/2024 8:42 AM SULFURIC ACID PLANT OPERATOR Body Mass Index 38.6 06/26/2024 8:42 AM SULFURIC ACID PLANT OPERATOR Plan of Treatment Upcoming Encounters Date Type Department Care Team (Late st Contact Info) Description 06/30/2025 1:30 PM CDT Office Visit [facility] [address] [place] [phone] Georgiana Castro, DENTAL OFFICE ASSISTANT, LICENSING SPECIALIST-C [address] [facility] [address] [place] [address] Health Maintenance Due Date Last Done Comments Hepatitis C 1964 DTaP, Tdap and Td Vaccines (1 - Tdap) 1965 Zoster Vaccines (1 of 2) 1996 Annual Medicare Wellness Visit 2011 Pneumococcal Vaccine: 50+ Years (2 of 2 - PPSV23) 09/29/2015 08/04/2015 RSV Immunization or 60+ Years (1 - 1-dose 75+ series) 2021 COVID-19 Vaccine ( - season) 2024 02/04/2021, 07/03/2020, 06/12/2020 Influenza Adult (#1) 2025 03/22/2021, 02/07/2020, 02/20/2019, Additional history exists Meningococcal [...] from hospital General No Mildred Spencer RN Medical Devices Implanted Type Area Glue Maker Device Identifier Shelf Expiration Date Model / Serial / Lot Cement Simplex Hv W/Gentamicin - [id number] Implanted:Qty : 1 on 06/14/2021 by Denis Alanis MD at [facility] Cement Implant Left: Knee [employer] - DIV JAMIN JANUSZ 07/22/2022 6195-1-010 / / [id number] Cement Simplex Hv W/Gentamicin - [id number] Implanted:Qty : 1 on 06/14/2021 by Denis Alanis MD at [facility] Cement Implant Left: Knee [employer] DIV [employer] JANUSZ 07/22/2022 [id number] / / [id number] Baseplate Tibial Attune 7 Knee Cement Rotate Platform Sterile - [id number] Implanted:Qty : 1 on 06/14/2021 by Denis Alanis MD at [facility] Knee Components Left: Knee DEPUY [id number] 01/21/2031 [id number] / / [id number] Component Ptlr 38mm Medialize Dome Attune Kn - [id number] Implanted:Qty : 1 on 06/14/2021 by Denis Alanis MD at [facility] Patella Left: Knee [employer] - A BLUE [employer] BLUE [id number] 04/23/2026 [id number] / / [id number] Attune Femoral Cruciate Retaining Size 6 Cemented Implanted:Qty : 1 on 06/14/2021 by Denis Alanis MD at [facility] Left: Knee DEPUY [id number] 01/21/2031 [id number] / / [id number] Attune Tibial Insert Rotating Platform Cruciate Retaining Size 6 14mm Implanted:Qty : 1 on 06/14/2021 by Denis Alanis MD at [facility] Left: Knee [employer]PUY [id number] 05/24/2025 [id number] / / [id number] Spacer, 16mm Implanted:Qty : 1 on 03/21/2022 by Baron Harris MD at [facility] N/A: Spine Lumbar [employer] 03/23/2024 [id number] / / [id number] Explanted Type Area Glue Maker Device Identifier Shelf Expiration Date Model / Serial / Lot Drill Bit Synthes 2.5 Qc 110mm Gold - [id number] Explanted:Qty: 1 on 06/14/2021 at [facility] Drill Left: Knee [employer] - A BLUE [employer] 310.25 / / Insurance MEDICARE MEDICARE AET Advance Directives * Full Code (Latest Code Status on File) Date Activated Date Inactivated Comments 04/13/2022 11:54 PM * Full Code Date Activated Date Inactivated Comments 04/06/2022 9:25 AM 04/13/2022 3:39 PM * Full Code Date Activated Date Inactivated Comments 06/14/2021 7:29 PM 06/15/2021 4:44 PM Care Teams Deboner Relationship Specialty Start Date End Date Chester Goodwin MD [address] [place] [address] PCP - General INTERNAL MEDICINE 03/29/16 Baron Harris MD [address] [place] [address] Consulting Physician ORTHOPAEDIC SURGERY 02/10/22 Georgiana Castro APRN, LICENSING SPECIALIST-C [address] [place] [phone] NURSE PRACTITIONER 08/20/24 Kumar Quiroz MD [address] [place] [address] Consulting Physician INTERVENTIONAL CARDIOLOGY 08/20/24
--- OUTSIDE RECORDS SUMMARY | 2025-01-28 07:39 | XMS_ITS | Encounter Summary ---
Author Organization [facility] Address [address] [place] [address] Care Team Providers Care Supervisor Hairspring Fabrication Name Role Phone Chester Goodwin MD Primary Care Provider [phone] Jareth Michel MD Unavailable Unavailab Nikhil Lincoln MD Unavailable [phone] Baron Harris MD Unavailable [phone] Hung Jiménez MD Unavailable [phone] Georgiana Castro APRN, NP-C Unavailable Kumar Quiroz MD Unavailable [phone] Encounter Details Date Type Department Care Team (Late Contact Info) Description 03/29/2016 Abstract [facility] [address] [place] [phone] Dana Brown, RN Social History Tobacco Use [...] 06/30/2025 1:30 PM CDT Office Visit [facility] [address] [place] [phone] Georgiana Castro APRN, WATER PUMP ASSEMBLER-C [address] [facility] [address] [place] [address] documented as of this encounter Visit Diagnoses Not on filedocumented in this encounter Additional Health Concerns Infection Onset Date Last Indicated Resolved Time COVID-19 Rule Out 06/11/2021 06/11/2021 06/11/2021 8:31 PM IT COMPLIANCE ANALYST COVID-19 Rule Out 04/06/2022 04/07/2022 04/07/2022 8:38 AM IT COMPLIANCE ANALYST documented as of this encounter Care Teams Supervisor Hairspring Fabrication Relationship Specialty Start Date End Date Chester Goodwin MD [address] [place] [address] PCP - General INTERNAL MEDICINE 03/29/16 Jareth Michel MD [address] [place] [address] [place] Math And Science Instructor CARDIOVASCULAR DISEASE 10/21/16 06/04/18 Nikhil Davis MD [address] [place] [address] [place] Math [employer] Science Instructor CARDIOVASCULAR DISEASE 06/05/18 12/05/23 Baron Harris MD [address] [place] [address] Consulting Physician ORTHOPAEDIC SURGERY 02/10/22 Hung Jiménez MD [address] [place], [place] [address] INTERVENTIONAL CARDIOLOGY 12/06/23 08/19/24 Georgiana Castro APRN, WATER PUMP ASSEMBLER-C [address] [place] [address] [address] NURSE PRACTITIONER 08/20/24 Kumar Quiroz MD [address] [place] [address] Consulting Physician INTERVENTIONAL CARDIOLOGY 08/20/24 documented as of this encounter
--- OUTSIDE RECORDS SUMMARY | 2025-01-28 07:39 | XMS_ITS | Encounter Summary ---
Author Organization [facility] Address [address] [place] [address] Care Team Providers Care Screen Printing Cloth Spreader Name Role Phone Chester Goodwin MD Primary Care Provider [phone] Jareth Michel MD Unavailable Unavailab Nikhil Lincoln MD Unavailable [phone] Baron Harris MD Unavailable [phone] Hung Jiménez MD Unavailable [phone] Georgiana Castro APRN, NP-C Unavailable [phone] Kumar Quiroz MD Unavailable [phone] Encounter Details Date Type Department Care Team (Late st Contact Info) Description 07/22/2015 Abstract [facility] [address] [place] [address] Kalpana Velasquez NP [address] [place] [address] Social History Tobacco Use Types Packs/Day Years [...] 06/30/2025 1:30 PM CDT Office Visit [facility] [address] [place] [phone] Georgiana Castro, DESULPHURIZER OPERATOR, SOCIAL SCIENCES INSTRUCTOR-C [address] [facility] [address] [place] [address] documented as of this encounter Visit Diagnoses Not on filedocumented in this encounter Additional Health Concerns Infection Onset Date Last Indicated Resolved Time COVID-19 Rule Out 06/11/2021 06/11/2021 06/11/2021 8:31 PM SEALER SANDER COVID-19 Rule Out 04/06/2022 04/07/2022 04/07/2022 8:38 AM SEALER SANDER documented as of this encounter Care Teams Screen Printing Cloth Spreader Relationship Specialty Start Date End Date Chester Goodwin MD [address] [place] [address] PCP - General INTERNAL MEDICINE 03/29/16 Jareth Michel MD [address] [place] [address] [place]imble Solder Cream Maker CARDIOVASCULAR DISEASE 10/21/16 06/04/18 Nikhil Davis MD [address] [place] [address] [place] Solder Cream Maker CARDIOVASCULAR DISEASE 06/05/18 12/05/23 Baron Harris MD [address] [place] [address] Consulting Physician ORTHOPAEDIC SURGERY 02/10/22 Hung Jiménez MD [address] [place] [address] INTERVENTIONAL CARDIOLOGY 12/06/23 08/19/24 Georgiana Castro APRN, SOCIAL SCIENCES INSTRUCTOR-C [address] [place] [address] [address] NURSE PRACTITIONER 08/20/24 Kumar Quiroz MD [address] [place] [address] Consulting Physician INTERVENTIONAL CARDIOLOGY 08/20/24 documented as of this encounter
--- OUTSIDE RECORDS SUMMARY | 2025-01-28 07:39 | XMS_ITS | Encounter Summary ---
Author Organization [facility] Address [address] [place] [address] Care Team Providers Care Support Representative Name Role Phone Chester Goodwin MD Primary Care Provider [phone] Nikhil Davis MD Unavailable [phone] Baron Harris MD Unavailable [phone] Hung Jiménez MD Unavailable [phone] Georgiana Castro APRN, NP-C Unavailable Kumar Quiroz MD Unavailable [phone] Encounter Details Date Type Department Care Team (Late st Contact Info) Description 01/06/2023 Abstract [facility] [address] [place] [address] Nikhil Davis MD [address] [place] [address] Social History Tobacco Use Types Packs/Day Years [...] Assessment Author Status No 04/08/2022 1:00 PM SUPERVISOR COVERING AND LINING Activ e * RETIRED Are you blind or do you have serious difficulty seeing, even when wearing glasses? Answer Date of Assessment Author Status No 04/08/2022 1:00 PM SUPERVISOR COVERING AND LINING Activ e * Do you have serious [...] 06/30/2025 1:30 PM CDT Office Visit [facility] [address] [place] [address] Georgiana Castro, PREMIUM CANCELLATION CLERK, EVENT SALES ASSISTANT-C [address] [facility] [address] [place] [address] documented as of this encounter Goals Goal Patient Goal Type Associated Problems Recent Progress Patient-Stated? Author Patient will return to prior living situation and remain independent in ADLs upon discharge from [facility] General Mildred Ariza RN documented as of [...] LAB-OUTSIDE/ABSTRACTED Final Result * HEMOGLOBIN, GLYCOSYLATED (01/06/2023) Pathologist [facility] HGB A1C 6.6 <5.7 % 01/06/2023 Result Shruthi Goodwin MD LABORATORY Final Result * LIPID PANEL (01/06/2023) [facility] CHOLESTEROL 153 0 - 200 HDL 48 40 - 60 TRIGLYCERIDES 189 0 - 150 LDL (CALCULATED) 67 01/06/2023 us Chester Goodwin MD LABORATORY Final Result * CMP (ABSTRACTED LAB) (01/06/2023) [facility] SODIUM S/P/B 140 136 - 145 POTASSIUM [...] TOTAL S/P/B 0.9 0.00 - 1.00 01/06/2023 Result Shruthi Goodwin MD LAB-OUTSIDE/ABSTRACTED Final Result documented in this encounter Visit Diagnoses Not on filedocumented in this encounter Care Teams Support Representative Relationship Specialty Start Date End Date Chester Goodwin MD [facility] [place] [address] PCP - General INTERNAL MEDICINE 03/29/16 Nikhil Davis MD [address] [place] [phone] [place] Otr Owner Operator Truck Driver CARDIOVASCULAR DISEASE 06/05/18 12/05/23 Baron Harris MD [address] [place] [address] Consulting Physician ORTHOPAEDIC SURGERY 02/10/22 Hung Jiménez MD [address] [place] [address] INTERVENTIONAL CARDIOLOGY 12/06/23 08/19/24 Georgiana Castro APRN, EVENT SALES ASSISTANT-C [address] [place] [address] [address] NURSE PRACTITIONER 08/20/24 Kumar Quiroz MD [address] [place] [address] Consulting Physician INTERVENTIONAL CARDIOLOGY 08/20/24 documented as of this encounter
--- OUTSIDE RECORDS SUMMARY | 2025-01-28 07:39 | XMS_ITS | Encounter Summary ---
Author Organization [facility] Address [facility] [place] [address] Care Team Providers Care Supervisor Electronics Inspection Name Role Phone Chester Goodwin MD Primary Care Provider [phone] Nikhil Davis MD Unavailable [phone] Baron Harris MD Unavailable [phone] Hung Jiménez MD Unavailable [phone] Georgiana Castro APRN, NP-C Unavailable [phone] Kumar Quiroz MD Unavailable [phone] Encounter Details Date Type Department Care Team (Late st Contact Info) Description 04/14/2022 Hospital Follow-up Call [facility] [address] [place] [address] Emilie Fournier, RN Social History Tobacco Use Types Packs/Day [...] Coronavirus/COVID-19? No / Unsure 04/08/2022 1:52 PM PIGMENT PUMPER documented as of this encounter Functional Status * RETIRED Are you deaf or do you have serious difficulty hearing Answer Date of Assessment Author Status No 04/08/2022 1:00 PM PIGMENT PUMPER Activ e * RETIRED Are you blind or do you have serious difficulty seeing, even when wearing glasses? Answer Date of Assessment Author Status No 04/08/2022 1:00 PM PIGMENT PUMPER Activ e * Do you have serious difficulty walking or climbing stairs? Answer Date of Assessment Author Status No 04/08/2022 1:00 PM PIGMENT PUMPER Nerissa Hanson RN Active * Do you have difficulty dressing or bathing? Answer Date of Assessment Author Status No 04/08/2022 1:00 PM PIGMENT PUMPER Nerissa Hanson RN Active * Because of a physical, mental, or emotional condition, do you have difficulty doing errands alone such as visiting a doctor's office or shopping? Answer Date of Assessment Author Status No 04/08/2022 1:00 PM PIGMENT PUMPER Nerissa Hanson RN Active documented as of this encounter Mental Status * Because of a physical, mental, or emotional condition, do you have serious difficulty concentrating, remembering, or making decisions? Answer Entry Date Author Status No 04/08/2022 1:00 PM PIGMENT PUMPER Nerissa Hanson RN Active documented in this encounter Plan of Treatment Upcoming Encounters Date Type Department Care Team (Late st Contact Info) Description 06/30/2025 1:30 PM CDT Office Visit [facility] [address] [place] [address] Georgiana Castro APRN, SUPPLY ANALYST-C [address] [facility][1] [address] [place] [address] documented as of this encounter Goals Goal Patient Goal Type Associated Problems Recent Progress Patient-Stated? Author Patient will return to prior living situation and remain independent in ADLs upon discharge from hospital General No Mildred Spencer RN documented as of this encounter Visit Diagnoses Not on filedocumented in this encounter Care Teams Supervisor Electronics Inspection Relationship Specialty Start Date End Date Chester Goodwin MD [address] [place] [phone] PCP - General INTERNAL MEDICINE 03/29/16 Nikhil Davis MD [address] [place] [address] [place] Mechanical Field Engineer CARDIOVASCULAR DISEASE 06/05/18 12/05/23 Baron Harris MD [address] [place] [address] Consulting Physician ORTHOPAEDIC SURGERY 02/10/22 Hung Jiménez MD [address] [place] [address] INTERVENTIONAL CARDIOLOGY 12/06/23 08/19/24 Georgiana Castro, WASTE WATER OPERATOR, SUPPLY ANALYST-C [address] [facility] [place] [address] [place] [address] NURSE PRACTITIONER 08/20/24 Kumar Quiroz MD [address] [place] [address] Consulting Physician INTERVENTIONAL CARDIOLOGY 08/20/24 documented as of this encounter
[2025-01-28 07:55] LABS: Hematocrit 41.8 % (37.0-46.0); Hemoglobin 14.1 g/dL (12.4-15.3); Immature Granulocyte Percent A 0.1 % (0.0-0.0); Lymphocytes Absolute Auto 1.65 K/mm3 (1.10-4.50); Mean Corpuscular HGB Conc 33.7 g/dL (32-36); Mean Corpuscular Hemoglobin 30.7 pg (27.0-31.0); Mean Corpuscular Volume 91.1 fL (78.0-102.0); Nucleated Red Blood Cells Absolute Auto 0.00 K/mm3 (0.00-0.00); Nucleated Red Blood Cells Perc 0.0 % (0-0.0); Platelet Count Result 176 K/mm3 (150-420); Red Blood Count 4.59 M/mm3 (4.70-6.10); White Blood Count 6.9 K/mm3 (4.8-10.8)
[2025-01-28 07:57] LABS: Add Urine Microscopic? NO; Appearance Urine Clear (Clear); Glucose Urine UA Negative (Negative); Leukocyte Esterase Ur Negative (Negative); Nitrate Urine Negative (Negative); Specific Grav Ur 1.015 (1.010-1.020)
[2025-01-28 08:27] LABS: Alanine Aminotransferase 15 U/L (6-50); Albumin Level 4.1 g/dL (3.5-5.1); Alkaline Phosphatase 102 U/L (38-126); Anion Gap 7 mmol/L (4-12); Aspartate Amino Transferase 25 U/L (17-59); Bilirubin,Total 1.3 mg/dL (0.2-1.3); Blood Urea Nitrogen 19 mg/dL (9-20); Calcium 9.4 mg/dL (8.4-10.2); Carbon Dioxide 31 mmol/L (22-30); Chloride 106 mmol/L (98-107); Cholesterol 160 mg/dL (0-200); Estimated Glomerular Filt Rate 58; Glucose 115 mg/dL (65-110); HDL Direct 43 mg/dL; Osmolality Calculated 301 mOsm/kg (285-295); Potassium 4.5 mmol/L (3.4-5.0); Sodium 144 mmol/L (137-145); Total Protein 6.8 g/dL (6.3-8.2); Triglycerides 195 mg/dL (<150)
[2025-01-28 08:41] LABS: MALB Creatinine Ratio 55.6 mg/g (0-30)
[2025-01-28 08:42] LABS: Hemoglobin A1C 6.6 % (<5.7)
[2025-01-28 08:51] LABS: Free T4 Free Thyroxine 0.90 ng/dL (0.78-2.19)
[2025-01-28 09:05] LABS: Thyroid Stimulating Hormone 2.780 uIU/mL (0.465-4.680)
[2025-01-28 15:34] LABS: Creatine Kinase 65 U/L (55-170)
== END 2025-01-28 07:35 | disposition home or self-care (01) ==
LOC: CHSLAB 07:36
PROVIDERS: PCP Internal Medicine; Visit Provider Internal Medicine
DX: E78.2 Mixed hyperlipidemia (principal); I10 Essential (primary) hypertension; E11.9 Type 2 diabetes mellitus without complications; D50.9 Iron deficiency anemia, unspecified; R53.82 Chronic fatigue, unspecified
CPT/HCPCS: 36415; 80053; 80061; 81003; 82043; 82550; 83036; 84439; 84443; 85025